=== PATIENT | female | born 1955 | race Caucasian/White ===

== ENCOUNTER → 2016-03-21 | Outpatient (CLI) | payer OTHER ==
[~2016-03-21] MED LIST: ALBUAER19 INH; CYM/30 PO; LOSA1TAB38 PO; METO1TAB31 PO; PANT1TAB48 PO; RANI1TAB77 PO
[2016-03-21 13:50] LABS: BLOOD UREA NITROGEN 18 mg/dl (7-18); BUN/CREATININE RATIO 19.9 (10-20); CALCIUM 9.1 mg/dl (8.5-10.1); CARBON DIOXIDE 31 mmol/L (21-32); CHLORIDE 100 mmol/L (98-107); CREATININE 0.92 mg/dl (0.60-1.20); GLUCOSE 164 mg/dl (70-99); SODIUM 140 mmol/L (136-145)
[2016-03-21 13:58] LABS: ESTIMATED AVERAGE GLUCOSE 114 mg/dl; HA1C FLAG Normal (Normal)
== END | disposition home or self-care (01) ==
LOC: C.LAB 11:40
PROVIDERS: ATTEND Internal Medicine
DX: R20.2 Paresthesia of skin (principal); W19.XXXA Unspecified fall, initial encounter; R73.9 Hyperglycemia, unspecified

== ENCOUNTER → 2016-03-22 | Outpatient (CLI) | payer OTHER | END | disposition home or self-care (01) | LOC: C.LAB1850 14:50 | PROVIDERS: ATTEND Internal Medicine | DX: R14.0 Abdominal distension (gaseous) (principal) ==

== ENCOUNTER → 2016-03-26 | Outpatient (CLI) | payer OTHER ==
--- NOTE | 2016-03-26 11:50 | DIAGNOSTIC IMAGING REPORT ---
ABDOMEN COMPLETE (US) CLINICAL HISTORY: R14.0 Bloated [id number] COMPARISON STUDY: No previous studies for comparison. FINDINGS: The pancreas appears sonographically normal. The liver is of slightly increased echogenicity. This slightly heterogeneous in echotexture. Hepatic steatosis is suspected. Hepatitis could appear similar. The gallbladder appears sonographically normal. There is no ductal dilatation. The common buttock measures 4 mm. There is mild splenomegaly (13.1 cm) The right kidney measures 10.5 cm in length. The left kidney measures 11.9 cm in length. There is no hydronephrosis. There is a 23 mm echogenic right renal mass. This is consistent with the patient's known right renal angiomyolipoma No abnormality IVC or aorta are visualized. IMPRESSION: 1. 23 mm echogenic right renal mass, likely representing a right renal angiomyolipoma 2. Increased hepatic echogenicity, likely secondary to hepatic steatosis 3. Ultrasonographically normal gallbladder. No ductal dilatation 4. Mild splenomegaly Electronically signed by: Nelson Mustafa M.D. 03/26/2016 11:48 AM Dictated Date/Time: 03/26/2016 11:45 AM
== END | disposition home or self-care (01) ==
LOC: C.ULTR 11:02
PROVIDERS: ATTEND Internal Medicine
DX: R14.0 Abdominal distension (gaseous) (principal); N28.89 Other specified disorders of kidney and ureter; K76.9 Liver disease, unspecified

== ENCOUNTER → 2016-04-24 | Outpatient (CLI) | payer OTHER ==
--- NOTE | 2016-04-24 17:54 | DIAGNOSTIC IMAGING REPORT ---
LEFT SHOULDER MIN 2 VIEWS ROUTINE CLINICAL HISTORY: Left shoulder pain COMPARISON: Chest x-ray dated 03/12/2016 DISCUSSION: No fractures or dislocations are visualized. There are no visible periarticular calcifications. There is stable left hilar prominence. There is mild left lung interstitial thickening. IMPRESSION: No fractures, dislocations, or periarticular calcifications are visualized Electronically signed by: Nelson Mustafa M.D. 04/24/2016 5:53 PM Dictated Date/Time: 04/24/2016 5:52 PM
== END | disposition home or self-care (01) ==
LOC: C.RAD 17:05
PROVIDERS: ATTEND Internal Medicine
DX: M25.512 Pain in left shoulder (principal)

== ENCOUNTER → 2016-08-26 | Outpatient (CLI) | payer OTHER ==
[~2016-08-26] MED LIST changes: +METO-478 PO; -METO1TAB31 PO
--- NOTE | 2016-08-26 14:39 | DIAGNOSTIC IMAGING REPORT ---
KUB CLINICAL HISTORY: N20.0 Nephrolithiasis COMPARISON STUDY: 07/28/2015 FINDINGS: There is no pathologic bowel dilatation. There are no calcifications suspicious for renal calculi. Pelvic basin calcifications, likely represent phleboliths. IMPRESSION: 1. No urinary tract calculi identified on conventional radiographic imaging Electronically signed by: Nelson Mustafa M.D. 08/26/2016 2:37 PM Dictated Date/Time: 08/26/2016 2:37 PM
== END | disposition home or self-care (01) ==
LOC: C.RAD 14:19
PROVIDERS: ATTEND Urology
DX: N20.0 Calculus of kidney (principal)

== ENCOUNTER → 2016-09-18 | Outpatient (CLI) | payer OTHER ==
[~2016-09-18] MED LIST changes: -METO-478 PO; +METO1TAB31 PO
--- NOTE | 2016-09-18 08:25 | DIAGNOSTIC IMAGING REPORT ---
CT SCAN OF THE ABDOMEN AND PELVIS WITHOUT CONTRAST CLINICAL HISTORY: NEPHROLITHIASIS, RIGHT KIDNEY MASS COMPARISON STUDY: 08/26/2014 , abdominal ultrasound dated 03/26/2016 TECHNIQUE: CT scan of the abdomen and pelvis was performed from the lung bases to the proximal femurs. Images are reviewed in the axial, sagittal, and coronal planes. IV contrast was not administered for this examination. CT DOSE: 1120.42 mGy.cm FINDINGS: Lower chest: There are coronary artery calcifications present. There are by basilar opacities, likely representing areas of atelectasis/scarring. Liver: The unenhanced liver is normal in size, contour, and attenuation. There is no intrahepatic biliary ductal dilatation. Gallbladder: Unremarkable. Spleen: Normal in size and attenuation. Pancreas: Unremarkable. Adrenal glands: Unremarkable. Kidneys: There are multiple bilateral renal calculi. The largest is located on the left measuring 3 mm. No ureteral calculi are visualized. No bladder calculi are visualized. There is no significant hydronephrosis. There is a stable fat-containing right renal mass measuring approximately 2 cm. This may represent an angiomyolipoma. Bowel: There are no transition zones indicate bowel obstruction. The appendix appears normal. There is colonic diverticulosis. There are no acute peridiverticular inflammatory changes. Peritoneum: There is no intraperitoneal free air or abdominal ascites. Vasculature: The abdominal aorta is normal in course and caliber. Adenopathy: There are mildly enlarged iliac chain lymph nodes, unchanged the preceding study. The largest is a 25 x 13 mm right-sided node. Pelvic viscera: The uterus appears surgically absent Skeletal structures: No destructive osseous lesions are seen. IMPRESSION: 1. No evidence of bowel obstruction. No evidence of free air 2. Bilateral nephrolithiasis 3. Stable 2 cm fat-containing right renal mass 4. No ureteral or bladder calculi identified 5. Mildly enlarged iliac chain lymph nodes, similar to the preceding 2014 examination Electronically signed by: Nelson Mustafa M.D. 09/18/2016 8:23 AM Dictated Date/Time: 09/18/2016 8:15 AM
== END | disposition home or self-care (01) ==
LOC: C.CTS 07:59
PROVIDERS: ATTEND Urology
DX: N20.0 Calculus of kidney (principal); N28.89 Other specified disorders of kidney and ureter

== ENCOUNTER → 2016-09-23 | Outpatient (CLI) | payer OTHER | END | disposition home or self-care (01) | LOC: C.LABSPEC 10:45 | PROVIDERS: ATTEND Nurse Practitioner Adult Health | DX: N39.46 Mixed incontinence (principal) ==

== ENCOUNTER → 2017-01-06 | Outpatient (CLI) | payer OTHER ==
[~2017-01-06] MED LIST changes: +METO-478 PO; -METO1TAB31 PO
[2017-01-06 12:18] LABS: ESTIMATED AVERAGE GLUCOSE 117 mg/dl; HA1C FLAG Normal (Normal)
[2017-01-06 14:07] LABS: BLOOD UREA NITROGEN 14 mg/dl (7-18); BUN/CREATININE RATIO 18.8 (10-20); CARBON DIOXIDE 29 mmol/L (21-32); CHLORIDE 103 mmol/L (98-107); CREATININE 0.75 mg/dl (0.60-1.20); GLUCOSE 99 mg/dl (70-99); POTASSIUM 4.1 mmol/L (3.5-5.1); SODIUM 138 mmol/L (136-145)
== END | disposition home or self-care (01) ==
LOC: C.LAB1850 11:18
PROVIDERS: ATTEND Internal Medicine
DX: R73.9 Hyperglycemia, unspecified (principal); E55.9 Vitamin D deficiency, unspecified; F41.9 Anxiety disorder, unspecified

== ENCOUNTER → 2017-07-07 | Outpatient (CLI) | payer OTHER ==
[~2017-07-07] MED LIST changes: +PANT1TAB3 PO; -PANT1TAB48 PO
[2017-07-07 12:24] LABS: BASO % 0.9 %; BASO ABS # 0.05 K/uL (0-0.2); EOS % 2.9 %; EOS ABS # 0.16 K/uL (0-0.5); HEMATOCRIT 46.9 % (37-47); HEMOGLOBIN 15.8 g/dL (12.0-16.0); IG# 0.01 K/uL (0.00-0.02); LYMPH % 23.6 %; MEAN CELL VOLUME 87.5 fL (80-100); MEAN CORPUSCULAR HEMOGLOBIN 29.5 pg (25-34); MEAN CORPUSCULAR HGB CONC 33.7 g/dl (32-36); MEAN PLATELET VOLUME 10.1 fL (7.4-10.4); MONO % 9.8 %; MONO ABS # 0.54 K/uL (0.11-0.59); NEUT % 62.6 %; NEUT ABS # 3.44 K/uL (1.4-6.5); PLATELET COUNT 216 K/uL (130-400); RED CELL DISTRIBUTION WIDTH CV 13.8 % (11.5-14.5); RED CELL DISTRIBUTION WIDTH SD 43.9 fL (36.4-46.3)
[2017-07-07 12:40] LABS: HEMOGLOBIN A1C 5.8 % (4.5-5.6)
[2017-07-07 12:44] LABS: ALBUMIN 3.7 gm/dl (3.4-5.0); ALT/SGPT 26 U/L (12-78); AST/SGOT 15 U/L (15-37); BLOOD UREA NITROGEN 17 mg/dl (7-18); CALCIUM 9.2 mg/dl (8.5-10.1); CARBON DIOXIDE 31 mmol/L (21-32); CREATININE 0.87 mg/dl (0.60-1.20); GLUCOSE 102 mg/dl (70-99); POTASSIUM 4.6 mmol/L (3.5-5.1); SODIUM 139 mmol/L (136-145)
[2017-07-07 12:55] LABS: ALKALINE PHOSPHATASE 93 U/L (45-117); CHOLESTEROL 159 mg/dl (0-200); LDL CHOLESTEROL CALCULATED 101 mg/dl; TOTAL PROTEIN 7.6 gm/dl (6.4-8.2)
== END | disposition home or self-care (01) ==
LOC: C.LAB1850 10:52
PROVIDERS: ATTEND Internal Medicine
DX: R73.9 Hyperglycemia, unspecified (principal); F32.9 Major depressive disorder, single episode, unspecified; E55.9 Vitamin D deficiency, unspecified; R73.03 Prediabetes

== ENCOUNTER 2019-01-04 15:04 | Inpatient (IN) ==
[2019-01-04 16:36] LABS: Appearance Urine Cloudy (Clear); Bacteria Urine Automated 1+ (Negative); Blood Urine Negative (Negative); Color Urine Dark Yellow; Epithelial Cell Urine Auto >30 /lpf (0-5); Glucose Urine UA Negative (Negative); Ketones Urine Trace (Negative); Leukocyte Esterase Urine 1+ (Negative); Nitrite Urine Negative (Negative); Protein Urine Trace (Negative); Specific Gravity Urine 1.024 (1.000-1.030); Urobilinogen Urine Negative (Negative); pH Urine 5.5 (4.5-7.5)
[2019-01-04 16:43] LABS: Bilirubin Urine Negative (Negative); Ictotest Urine Negative (Negative)
[2019-01-04 17:04] LABS: Basophils # (auto) 0.08 K/uL (0-0.2); Basophils % (auto) 0.7 %; Eosinophils # (auto) 0.18 K/uL (0-0.5); Eosinophils % (auto) 1.6 %; Hematocrit (blood only) 47.5 % (37-47); Hemoglobin 16.4 g/dL (12.0-16.0); Immature Granulocytes # (auto) 0.01 K/uL (0.00-0.02); Immature Granulocytes % (auto) 0.1 %; Lymphocytes # (auto) 3.51 K/uL (1.2-3.4); Lymphocytes % (auto) 32.2 %; Mean Corpuscular Hemoglobin 29.9 pg (25-34); Mean Corpuscular Hgb Conc 34.5 g/dL (32-36); Mean Corpuscular Volume 86.7 fL (80-100); Mean Platelet Volume 9.9 fL (7.4-10.4); Monocytes % (auto) 9.2 %; Neutrophils # (auto) 6.13 K/uL (1.4-6.5); Neutrophils % (auto) 56.2 %; Platelet Count 212 K/uL (130-400); RDW Coefficient of Variation 13.2 % (11.5-14.5); RDW Standard Deviation 42.4 fL (36.4-46.3); Red Blood Count 5.48 M/uL (4.2-5.4); White Blood Count 10.91 K/uL (4.8-10.8)
[2019-01-04 17:17] LABS: Albumin Level 4.1 gm/dl (3.4-5.0); BUN Creatinine Ratio 20.7 (10-20); Calcium 9.6 mg/dl (8.5-10.1); Creatinine Clr Calc Pharmacy 68.3 ml/min; Est GFR (African American) 70.2; Est GFR (Non-African American) 60.5; Potassium 3.7 mmol/L (3.5-5.1)
[2019-01-04 17:22] LABS: Amphetamines+Metham, Urine Neg (Neg); Barbiturates, Urine Neg (Neg); Benzodiazepine, Urine Neg (Neg); Cocaine, Urine Neg (Neg); MDMA (Ecstacy), Urine Neg (Neg); Methadone, Urine Neg (Neg); Opiate, Urine Neg (Neg); Phencyclidine, Urine Neg (Neg)
[2019-01-04 17:28] LABS: Albumin Globulin Ratio 1.2 (0.9-2); Bilirubin,Total 0.9 mg/dl (0.2-1); Globulin 3.5 gm/dl (2.5-4.0); Thyroid Stimulating Hormone 1.86 uIu/ml (0.300-4.500); Total Protein 7.6 gm/dl (6.4-8.2)
[2019-01-04 17:31] LABS: Acetaminophen < 2 ug/ml (10-30); Salicylate < 1.7 mg/dl (2.8-20)
--- NOTE | 2019-01-04 19:47 | Emergency Department Note ---
Entered by Barbara Moreno acting as a scribe for History of Present Illness General Chief complaint: Mental Health Evaluation Stated complaint: MENTAL HEALTH EVAL History of Present Illness Provider complaint: mental health evaluation Onset (ago): week(s) 2 Location: head Pain Consistency: + other (episode) Associated symptoms: + weakness and + other (cannot sleep, body aches, anxious, nauseas, suicidal ideation with a plan to overdose or run her car into a tree, went off medication 3 months ago and became manic but then crashed shortly after) Treatments prior to arrival: none The patient is a 63 year old female who presents to the ED for a mental health evaluation. The patient states that she cannot sleep because she is anxious, has body aches, weakness and nausea. The patient states that she has suicidal ideations with a plan to either overdose or drive her car into a tree. The patient notes that this episode started 2 weeks ago. The patient notes that she went off her medication 3 months ago and initially felt great because she was manic. The patient states that she started to "crash" shortly after this and has not felt herself since. The patient denies receiving any treatments prior to arrival. Home Medications Home Medications Medication Instructions Recorded Confirmed Type vitamin B complex tablet 1 tab PO QAM tab 10/27/18 01/04/19 History hydroxyzine HCl 10 mg tablet 10 - 20 mg PO HS PRN 10 Days #20 01/01/19 01/04/19 Rx tab losartan [Cozaar] 100 mg PO QAM 01/04/19 01/04/19 History duloxetine [Cymbalta] 30 mg PO DAILY 01/05/19 01/05/19 History Allergies Allergy/AdvReac Type Severity Reaction Status Date / Time Thiazides Allergy Severe SOB, Verified 01/04/19 15:59 hives, rash omeprazole Allergy Intermediate joints hurt Verified 01/04/19 15:59 prednisone Allergy Intermediate FACIAL Verified 01/04/19 15:59 NUMBNESS AND DIZZINESS trazodone AdvReac Severe suicidial Verified 01/04/19 15:59 idealations Past Med/Surg History Medical History Abdominal pain (Acute) Nausea (Acute) Kidney mass (Acute) Angiomyolipoma of right kidney Anxiety (Acute) Arthralgia (Acute) Calcium nephrolithiasis (Acute) Cirrhosis, nonalcoholic (Acute) Depression (Acute) Diverticulosis (Acute) Fatty liver (Acute) Fibromyalgia (Acute) Gastroesophageal reflux disease without esophagitis (Acute) Hypertension (Acute) IPMN (intraductal papillary mucinous neoplasm) (Acute) Insomnia (Acute) Internal hemorrhoids (Acute) Irritable bowel syndrome (Acute) Macular edema of left eye (Acute) Metabolic syndrome (Acute) Prediabetes (Acute) Sarcoidosis of lung (Acute) Tingling (Acute) Vitamin D deficiency (Acute) Kidney stone (Resolved) H/O tooth extraction H/O: hysterectomy Surgical History Hx of cystoscopy With Ureteroscopy With Manipulation Of Calculus Family History Mother Coronary heart disease Skin cancer Diabetes Hypertension History of nephrolithiasis Acute myocardial infarction Colon cancer Myocardial infarction Unknown Heart disease Diabetes Hypertension History of nephrolithiasis Sister Diabetes Father Hypertension Acute myocardial infarction Myocardial infarction Unknown Hypertension Brother Hypertension Malignant neoplasm of kidney Aunt Colon cancer Social History Preferred Language: German Communication Ability: Effective Visual Impairment: No Limitations Hearing Ability: Normal Senior 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 and A total of 10 systems reviewed and were otherwise negative Physical Exam Vital Signs Vital Signs - 24 hr 01/04/19 15:15 01/04/19 17:23 01/04/19 20:43 Temperature 37.0 C Temperature Source Oral Sepsis Recent Fever Within 48 Hours No Sepsis New/Unexplained Change in Mental Status No Sepsis Action Taken by Nursing No Action Required Pulse Rate 123 H Pulse Rate [Right Finger] 102 H 93 H Pulse Rhythm Regular Pulse Strength Normal Respiratory Rate 18 20 20 Blood Pressure 172/108 H Blood Pressure [Left Arm] 158/105 H 182/112 H Blood Pressure Mean 129 Blood Pressure Mean [Left Arm] 122 135 Blood Pressure Position Sitting Pulse Oximetry 95 96 95 Oxygen Delivery Method Room Air Room Air 01/04/19 21:16 Temperature Temperature Source Sepsis Recent Fever Within 48 Hours Sepsis New/Unexplained Change in Mental Status Sepsis Action Taken by Nursing Pulse Rate Pulse Rate [Right Finger] 92 H Pulse Rhythm Pulse Strength Respiratory Rate 20 Blood Pressure Blood Pressure [Left Arm] 134/76 Blood Pressure Mean Blood Pressure Mean [Left Arm] 95 Blood Pressure Position Pulse Oximetry 99 Oxygen Delivery Method Room Air Vital signs reviewed. General: Well-appearing 63 year old female, obese, in no significant distress. HEENT: No scleral icterus, PERRLA, neck supple. Atraumatic. Cardiovascular: Regular rate and rhythm, no extra sounds. Pulmonary: Clear to auscultation bilaterally, normal work of breathing. Abdomen: Soft, nontender, nondistended, positive bowel sounds. Musculoskeletal: Atraumatic, no peripheral edema. Neurologic: Patient awake alert and oriented x 3 Psych: Positive SI with plan, negative HI. Skin: Warm, dry, no rash Course 1629: Past medical records reviewed. The patient was evaluated in room C08. A complete history and physical exam was performed. 2228: The patient will be accepted to [address] [place] [address]. Administered Medications Clonidine HCl (Catapres) 0.05 mg PO Q4H PRN PRN Reason: hypertension/anxiety Stop: 02/04/19 12:57 Last Admin: 01/06/19 14:03 Dose: 0.05 mg Documented by: [id number] Duloxetine HCl (Cymbalta) 20 mg PO [facility] Stop: 02/04/19 11:59 Last Admin: 01/06/19 09:03 Dose: 20 mg Documented by: [id number] Admin: 01/05/19 13:52 Dose: 20 mg Documented by: [id number] Hydroxyzine HCl (Vistaril) 50 mg PO HSZ PRN PRN Reason: Insomnia Stop: 02/03/19 22:42 Last Admin: 01/06/19 01:31 Dose: 50 mg Documented by: [id number] Losartan Potassium [facility]Cozaar) [facility] Stop: 02/05/19 08:59 Last Admin: 01/06/19 09:03 Dose: 100 mg Documented by: [id number] Discontinued Medications Clonidine HCl (Catapres) 0.1 mg PO Q4H PRN PRN Reason: hypertension/anxiety Stop: 02/04/19 12:57 Last Admin: 01/05/19 13:52 Dose: 0.1 mg Documented by: [id number] Losartan Potassium (Cozaar) 100 mg PO QAM [facility] Stop: 02/04/19 08:59 Last Admin: 01/05/19 09:03 Dose: 100 mg Documented by: [id number] Medical Decision Making Differential Diagnosis Differential diagnosis: Etiologies such as psychiatric disorder, infection, hypoglycemia, electrolyte abnormalities, cardiac sources, intracerebral event, toxicological process, neurologic disorder, as well as others were entertained. Medical Records Attestation: I reviewed the patient's medical records. Home Medications Current Medication List: was personally reviewed by me Laboratory Data Attestation: I reviewed the patient's lab results. Result diagrams: 01/04/19 16:41 01/04/19 16:41 Lab Results 01/04/19 01/04/19 01/04/19 Range/Units 15:45 15:45 16:41 WBC 10.91 H (4.8-10.8) K/uL RBC 5.48 H (4.2-5.4) M/uL Hgb 16.4 H (12.0-16.0) g/dL Hct 47.5 H (37-47) % MCV 86.7 (80-100) fL MCH 29.9 (25-34) pg MCHC 34.5 (32-36) g/dL RDW Std Deviation 42.4 (36.4-46.3) fL RDW Coeff of Ne 13.2 (11.5-14.5) % Plt Count 212 (130-400) K/uL MPV 9.9 (7.4-10.4) fL Immature Gran % (Auto) 0.1 % Neut % (Auto) 56.2 % Lymph % (Auto) 32.2 % [place] % (Auto) 9.2 % Eos % (Auto) 1.6 % Baso % (Auto) 0.7 % Immature Gran # (Auto) 0.01 (0.00-0.02) K/uL Neut # (Auto) 6.13 (1.4-6.5) K/uL Lymph # (Auto) 3.51 H (1.2-3.4) K/uL [place] # (Auto) 1.00 H (0.11-0.59) K/uL Eos # (Auto) 0.18 (0-0.5) K/uL Baso # (Auto) 0.08 (0-0.2) K/uL Sodium (136-145) mmol/L Potassium (3.5-5.1) mmol/L Chloride (98-107) mmol/L Carbon Dioxide (21-32) mmol/L Anion Gap (3-11) BUN (7-18) mg/dl Creatinine (0.6-1.2) mg/dl Est Cr Clr Drug Dosing ml/min Est GFR ( Amer) Est GFR (Non-Af Amer) BUN/Creatinine Ratio (10-20) Glucose (70-99) mg/dl Calcium (8.5-10.1) mg/dl Total Bilirubin (0.2-1) mg/dl AST (15-37) U/L ALT (12-78) U/L Alkaline Phosphatase (45-117) U/L Total Protein (6.4-8.2) gm/dl Albumin (3.4-5.0) gm/dl Globulin (2.5-4.0) gm/dl Albumin/Globulin Ratio (0.9-2) TSH (0.300-4.500) uIu/ml Urine Color Dark Yellow Urine Appearance Cloudy A (Clear) Urine pH 5.5 (4.5-7.5) Ur Specific [place] 1.024 (1.000-1.030) Urine Protein Trace H (Negative) Urine Glucose (UA) Negative (Negative) Urine Ketones Trace H (Negative) Urine Blood Negative (Negative) Urine Nitrite Negative (Negative) Urine Bilirubin Negative (Negative) Urine Urobilinogen Negative (Negative) Ur Leukocyte Esterase 1+ H (Negative) Urine WBC (Auto) 5-10 H (0-5) /hpf Urine RBC (Auto) 5-10 H (0-4) /hpf U Hyaline Cast (Auto) 5-10 H (0-5) /lpf U Epithel Cells (Auto) >30 H (0-5) /lpf Urine Bacteria (Auto) 1+ H (Negative) Salicylates (2.8-20) mg/dl Urine Opiates Screen Neg (Neg) Ur Methadone, Qual Neg (Neg) Acetaminophen (10-30) ug/ml Urine Barbiturates Neg (Neg) Ur Phencyclidine (PCP) Neg (Neg) U Amphetamin/Meth Scrn Neg (Neg) MDMA (Ecstasy) Screen Neg (Neg) U Benzodiazepines Scrn Neg (Neg) Ur Cocaine Metabolite Neg (Neg) U Marijuana (THC) Screen Neg (Neg) Ethyl Alcohol mg/dL (0-3) mg/dl 01/04/19 01/04/19 01/04/19 Range/Units 16:41 16:41 16:41 WBC (4.8-10.8) K/uL RBC (4.2-5.4) M/uL Hgb (12.0-16.0) g/dL Hct (37-47) % MCV (80-100) fL MCH (25-34) pg MCHC (32-36) g/dL RDW Std Deviation (36.4-46.3) fL RDW Coeff of Ne (11.5-14.5) % Plt Count (130-400) K/uL MPV (7.4-10.4) fL Immature Gran % (Auto) % Neut % (Auto) % Lymph % (Auto) % [place] % (Auto) % Eos % (Auto) % Baso % (Auto) % Immature Gran # (Auto) (0.00-0.02) K/uL Neut # (Auto) (1.4-6.5) K/uL Lymph # (Auto) (1.2-3.4) K/uL [place] # (Auto) (0.11-0.59) K/uL Eos # (Auto) (0-0.5) K/uL Baso # (Auto) (0-0.2) K/uL Sodium 136 (136-145) mmol/L Potassium 3.7 (3.5-5.1) mmol/L Chloride 102 (98-107) mmol/L Carbon Dioxide 29 (21-32) mmol/L Anion Gap 5.0 (3-11) BUN 20 H (7-18) mg/dl Creatinine 0.98 (0.6-1.2) mg/dl Est Cr Clr Drug Dosing 68.3 ml/min Est GFR ( Amer) 70.2 Est GFR (Non-Af Amer) 60.5 BUN/Creatinine Ratio 20.7 H (10-20) Glucose 109 H (70-99) mg/dl Calcium 9.6 (8.5-10.1) mg/dl Total Bilirubin 0.9 (0.2-1) mg/dl AST 19 (15-37) U/L ALT 23 (12-78) U/L Alkaline Phosphatase 77 (45-117) U/L Total Protein 7.6 (6.4-8.2) gm/dl Albumin 4.1 (3.4-5.0) gm/dl Globulin 3.5 (2.5-4.0) gm/dl Albumin/Globulin Ratio 1.2 (0.9-2) TSH 1.860 (0.300-4.500) uIu/ml Urine Color Urine Appearance (Clear) Urine pH (4.5-7.5) Ur Specific [place] (1.000-1.030) Urine Protein (Negative) Urine Glucose (UA) (Negative) Urine Ketones (Negative) Urine Blood (Negative) Urine Nitrite (Negative) Urine Bilirubin (Negative) Urine Urobilinogen (Negative) Ur Leukocyte Esterase (Negative) Urine WBC (Auto) (0-5) /hpf Urine RBC (Auto) (0-4) /hpf U Hyaline Cast (Auto) (0-5) /lpf U Epithel Cells (Auto) (0-5) /lpf Urine Bacteria (Auto) (Negative) Salicylates < 1.7 L (2.8-20) mg/dl Urine Opiates Screen (Neg) Ur Methadone, Qual (Neg) Acetaminophen < 2 L (10-30) ug/ml Urine Barbiturates (Neg) Ur Phencyclidine (PCP) (Neg) U Amphetamin/Meth Scrn (Neg) MDMA (Ecstasy) Screen (Neg) U Benzodiazepines Scrn (Neg) Ur Cocaine Metabolite (Neg) U Marijuana (THC) Screen (Neg) Ethyl Alcohol mg/dL < 3.0 (0-3) mg/dl Blood Pressure Blood Pressure Findings: Elevated blood pressure Blood Pressure Disposition: further management by hospitalist MDM Narrative This pt was evaluated and appeared to be in no distress. Pt was medically cleared and evaluated by the mental health bilingual case manager. Pt was voluntary for admission and accepted by [facility] for further management. Impression & Plan Suicidal ideation Discharge Plan Visit Data *Final* Discharge Date/Time: 01/04/19 21:46 Chief Complaint: Mental Health Evaluation Stated Complaint: MENTAL HEALTH EVAL ED Provider: Marcella Oates Discharge Problem: Suicidal ideation Patient Disposition: Admitted As Inpatient Discharge Instructions Interventions: ED Discharge Assessment Last Done: 01/04/19 21:46 The scribe's documentation has been prepared under my direction and personally reviewed by me in its entirety. I confirm that the note above accurately reflects all work, treatment, procedures, and medical decision making performed by me.
[2019-01-04] MEDS ORDERED: MAGNESIUM HYDROXIDE SUSP 30 ML UDC PO PRN (22:43)
[2019-01-04] MEDS ORDERED: SODIUM CHLORIDE 0.65% NA SOLN 45 ML (OCEAN) PRN (22:43)
[2019-01-04] MEDS ORDERED: BISMUTH SUBSALICYLATE PER ML OMNICELL CHARGE PO PRN (22:43)
[2019-01-04] MEDS ORDERED: ALUMINUM/MAGNESIUM SUSP 30 ML UDC PO PRN (22:43)
[2019-01-05] MEDS ORDERED: LOSARTAN POTASSIUM 50 MG TAB PO SCH (09:00)
--- NOTE | 2019-01-05 11:50 | History & Physical ---
Date of Service January 05, 2019 Impression / Recommendations Impression 63-year-old single female with a history of bipolar 2, generalized anxiety disorder, and multiple medical problems who presents with worsening mood and suicidal ideation in the context of noncompliance with mental health treatment, including medications and therapy, as well as worsening medical conditions and increased social isolation. She did well and was stable on low-dose duloxetine for years, and agrees to resume it while monitoring closely for impact to liver and mood destabilization. She has never taken a mood stabilizer, but has had manic symptoms with an SSRI in the past, so close monitoring is indicated. She would also benefit from getting back into therapy, working on coping strategies for dealing with her multiple health issues, which she reports are overwhelming. Inpatient treatment is medically necessary due to the risk of suicide if discharged. (1) Suicidal ideation: Q 15 min checks for safety Work on healthy coping skills and discharge safety plan. Present on Admission?: Yes (2) Bipolar II disorder: 01/05 - Reviewed OP records from [facility], diagnosed bipolar II and h/o manic symptoms on citalopram, but did the best on duloxetine 30mg daily (stable for years, and helped chronic pain). Reviewed risks, benefits and side effects and patient agreed to resume. Also discussed lurasidone (states she can't afford it), as well as lamotrigine. - Consider addition of mood stabilizer (lamotrigine?) - Collateral information from friends/supports, family meeting if indicated. - Refer for OP treatment. - Encourage group attendance and participation. Present on Admission?: Yes (3) Anxiety: TAL - resume SNRI, engage in therapy, work on healthy coping skills. Present on Admission?: Yes (4) Hypertension: 01/05 - Poorly controlled, resume home dose of Cozaar and monitor. Will need f/u with PCP Present on Admission?: Yes (5) Sleep apnea: 01/05 -patient reports diagnosis of obstructive sleep apnea and is prescribed CPAP, but has been noncompliant with it for years. Sleep is chronically poor and this is likely contributing to depression. She is aware that she needs to resume, and reports having an appointment with a sleep physician at [facility] next month. Present on Admission?: Yes (6) Kidney mass: Follow-up with urologist as recommended Present on Admission?: Yes Risk Factors Assessment Male: No : Yes Do You Have Access To A Gun?: No Health Problems: Yes Mental Health Diagnoses: Yes Substance Use Disorders: No Previous Attempt: Yes Family History of Suicide: No Previous Psychiatric Hospitalization: No Hopelessness: Yes Smoker: No Protective Factors Assessment Christianity Beliefs: Yes : No Responsible for Young Children: No Employed: No Stable Relationships: Yes Supportive Family: No Good Rapport with Provider: No Psychiatric History Identifying Data HAILEY MATHIS is a 63-year-old F who currently lives alone in [place], has a history of depression, and was admitted on 01/04/19 21:31 on a 201 voluntary commitment for worsening depression and suicidal ideation. Chief Complaint "Anxiety, afraid, scared". History of Present Illness Patient drove herself to the ER along with a baptist friend reporting SI with thoughts to drive herself into a tree. She had picked out the tree she would use. She had recently been seen in the ER for abdominal pain, and was told to follow up with her urologist. On my assessment she reports she went off medication and stopped going to therapy earlier this year after her outpatient TOOTH CUTTER SPUR left the practice, and her therapist also left and she didn't like the new therapist. She reports feeling overwhelmed with her medical problems, stating every time she went to see her doctor "it was something else, another vital organ." States she was diagnosed with cirrhosis and decided to stop her Cymbalta several months ago after she saw that it could cause liver damage. Since then her mood has worsened, states "I thought it didn't, but everyone else said it did. I knew my mood wasn't where it should be." Sleep has worsened over the past week and a half, and appetite has been down with 30lb weight loss. 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 Reports she stopped going to outpatient psychiatric treatment after her previous TOOTH CUTTER SPUR retired, stating she didn't want to talk to someone else. She is fearful of taking any medications, worries about side effects and her liver. She reports taking her BP meds and states BP is usually well controlled, "but gets high when I'm not feeing well." She denies recollection of manic or hypomanic episodes, but is aware she has been diagnosed with bipolar II. She states she "tried to go back on the duloxetine, was on it for 5 days earlier this month (can't give timeline), and thinks it might have caused her to feel suicidal. She repeatedly answers "I don't know, I"m just tired. Everything seems to be out of control, and I don't know how to cope." She has not been sleeping well and thinks it is causing trouble thinking and functioning. Denies paranoia, AVH, OCD, and PTSD. Past Psychiatric History Previous Psych History: Previously saw Paulina CORONADO at [facility], last in 01/2018 (diagnoses as below). Also saw Sera Nicole for therapy [id number], and prior to that saw Vaishali Floyd Current Psychiatric Diagnosis: bipolar II, TAL, chronic pain syndrome Outpatient Services: None Do You Have Access To A Gun?: No History of Previous Suicide Attempt: Yes Describe Attempts in the Past: OD appx: 2008 or 2009 while tried on trazodone, not hospitalized Past Medication Trials: Include but not limited to: trazodone - SI increased citalopram duloxetine - was on 30mg alone for years, as declined mood stabilizer. Higher doses have triggered ramona Does not think she has ever been on lithium or lamotrigine Allergies Allergy/AdvReac Type Severity Reaction Status Date / Time Thiazides Allergy Severe SOB, Verified 01/04/19 15:59 hives, rash omeprazole Allergy Intermediate joints hurt Verified 01/04/19 15:59 prednisone Allergy Intermediate FACIAL Verified 01/04/19 15:59 NUMBNESS AND DIZZINESS trazodone AdvReac Severe suicidial Verified 01/04/19 15:59 idealations Home Medications Home Medications Medication Instructions Recorded Confirmed Type vitamin B complex tablet 1 tab PO QAM tab 10/27/18 01/04/19 History hydroxyzine HCl 10 mg tablet 10 - 20 mg PO HS PRN 10 Days #20 01/01/19 01/04/19 Rx tab losartan [Cozaar] 100 mg PO QAM 01/04/19 01/04/19 History Family History Family History of: Depression Family Mental Health History Comment: Father, Brother: Depression Alcohol History Hx of Alcohol Use Over the Past 12 Months: No AUDIT Total Score: 0 Smoking Use Have You Smoked or Used Tobacco Products in the Last 30 Days: No Smoking Status: Never smoker Substance History Hx of Prescription Med Misuse Over the Past 12 Months: No Hx of Over the Counter Med Misuse Over the Past 12 Months: No Hx of Inhalent Misuse Over the Past 12 Months: No Hx of Organic Substance Use Over the Past 12 Months: No Hx of Illegal Substances/Street Drug Use Over Past 12 Months: No Problems as a Result of Past Substance Use: None Identified Personal History Living Arrangements: Home Living Arrangements Comments: alone in [place] Highest Grade Completed: High School Graduate Employment Status: Disabled Marital Status: Single Number Of Children: 0 Beliefs That Will Affect Care: Christianity (Orthodoxy) Current Legal Problems: No Hx Traumatic Life Events: No Patient History Medical History Abdominal pain (Acute) Nausea (Acute) Kidney mass (Acute) Angiomyolipoma of right kidney Anxiety (Acute) Arthralgia (Acute) Calcium nephrolithiasis (Acute) Cirrhosis, nonalcoholic (Acute) Depression (Acute) Diverticulosis (Acute) Fatty liver (Acute) Fibromyalgia (Acute) Gastroesophageal reflux disease without esophagitis (Acute) Hypertension (Acute) IPMN (intraductal papillary mucinous neoplasm) (Acute) Insomnia (Acute) Internal hemorrhoids (Acute) Irritable bowel syndrome (Acute) Macular edema of left eye (Acute) Metabolic syndrome (Acute) Prediabetes (Acute) Sarcoidosis of lung (Acute) Tingling (Acute) Vitamin D deficiency (Acute) Kidney stone (Resolved) H/O tooth extraction H/O: hysterectomy Surgical History Hx of cystoscopy With Ureteroscopy With Manipulation Of Calculus Social History Preferred Language: Surinamese Communication Ability: Effective Visual Impairment: No Limitations Hearing Ability: Normal Mesh Man Required: No Beliefs That Will Affect Care: Christianity (Orthodoxy) Christianity Beliefs: Sabianist marital status: Single Current Living Situation: Alone current occupational status: unemployed Feels Safe at Home: Yes Smoking Status: Never smoker Hx Alcohol Use: No Hx Substance Use: No Childhood Exposure to Second-Hand Smoke: No Dental Care, Regularly: Yes Physical Activity Frequency: Does not Exercise Seatbelt Use: always Sunscreen Use: No Review of Systems Review of Systems: All systems reviewed & are unremarkable except as noted in HPI & below denies pain currently. Reports flatulence Physical Exam Psychiatric: Orientation: alert and cooperative Poor historian Apperance: appropriately dressed and appeared stated age Obese Eye Contact: + fair eye contact Motor Behavior: steady gait and station and no abnormal motor movements Exasperated tone Affect: + depressed affect, + irritable affect, + constricted affect and mood congruent with affect Mood: + depressed mood and + anxious mood Thought Process: goal directed thought process Thought Content: + cognitive distortions, + hopelessness, + worthlessness, + loneliness, + guilt and + self deprecation Vague, often states "I don't know." Suicidal Thoughts: + reports suicidal thoughts emerita to crash her car into a tree, has a tree picked out Homicidal Thoughts: denies homicidal thoughts Hallucinations: no auditory hallucinations and no visual hallucinations Cognition: language grossly intact; + recent memory not intact, + remote memory not intact and + attention not intact Estimated Intelligence: consistent with education level Insight: + limited insight Judgement: + poor judgement Vital Signs (Past 24 Hours): Last Vital Signs Temp 36.4 C L 01/05/19 06:00 Pulse 89 01/05/19 06:38 Resp 19 01/05/19 06:00 BP 160/101 H 01/05/19 06:38 Pulse Ox 99 01/04/19 21:16 Exam Statement: A physical exam was performed in the ER prior to admission to the unit by Dr. Marcella Cuevas. I accept that physical as correct/medical clearance for the inpatient physical exam. Results & Data Laboratory Results Laboratory Results - last 24 hr 01/04/19 01/04/19 01/04/19 15:45 15:45 16:41 WBC 10.91 H RBC 5.48 H Hgb 16.4 H Hct 47.5 H MCV 86.7 MCH 29.9 MCHC 34.5 RDW Std Deviation 42.4 RDW Coeff of Ne 13.2 Plt Count 212 MPV 9.9 Immature Gran % (Auto) 0.1 Neut % (Auto) 56.2 Lymph % (Auto) 32.2 [place] % (Auto) 9.2 Eos % (Auto) 1.6 Baso % (Auto) 0.7 Immature Gran # (Auto) 0.01 Neut # (Auto) 6.13 Lymph # (Auto) 3.51 H [place] # (Auto) 1.00 H Eos # (Auto) 0.18 Baso # (Auto) 0.08 Sodium Potassium Chloride Carbon Dioxide Anion Gap BUN Creatinine Est Cr Clr Drug Dosing Est GFR ( Amer) Est GFR (Non-Af Amer) BUN/Creatinine Ratio Glucose Calcium Total Bilirubin AST ALT Alkaline Phosphatase Total Protein Albumin Globulin Albumin/Globulin Ratio TSH Urine Color Dark Yellow Urine Appearance Cloudy A Urine pH 5.5 Ur Specific [place] 1.024 Urine Protein Trace H Urine Glucose (UA) Negative Urine Ketones Trace H Urine Blood Negative Urine Nitrite Negative Urine Bilirubin Negative Urine Urobilinogen Negative Ur Leukocyte Esterase 1+ H Urine WBC (Auto) 5-10 H Urine RBC (Auto) 5-10 H U Hyaline Cast (Auto) 5-10 H U Epithel Cells (Auto) >30 H Urine Bacteria (Auto) 1+ H Salicylates Urine Opiates Screen Neg Ur Methadone, Qual Neg Acetaminophen Urine Barbiturates Neg Ur Phencyclidine (PCP) Neg U Amphetamin/Meth Scrn Neg MDMA (Ecstasy) Screen Neg U Benzodiazepines Scrn Neg Ur Cocaine Metabolite Neg U Marijuana (THC) Screen Neg Ethyl Alcohol mg/dL 01/04/19 01/04/19 01/04/19 16:41 16:41 16:41 WBC RBC Hgb Hct MCV MCH MCHC RDW Std Deviation RDW Coeff of Ne Plt Count MPV Immature Gran % (Auto) Neut % (Auto) Lymph % (Auto) [place] % (Auto) Eos % (Auto) Baso % (Auto) Immature Gran # (Auto) Neut # (Auto) Lymph # (Auto) [place] # (Auto) Eos # (Auto) Baso # (Auto) Sodium 136 Potassium 3.7 Chloride 102 Carbon Dioxide 29 Anion Gap 5.0 BUN 20 H Creatinine 0.98 Est Cr Clr Drug Dosing 68.3 Est GFR ( Amer) 70.2 Est GFR (Non-Af Amer) 60.5 BUN/Creatinine Ratio 20.7 H Glucose 109 H Calcium 9.6 Total Bilirubin 0.9 AST 19 ALT 23 Alkaline Phosphatase 77 Total Protein 7.6 Albumin 4.1 Globulin 3.5 Albumin/Globulin Ratio 1.2 TSH 1.860 Urine Color Urine Appearance Urine pH Ur Specific [place] Urine Protein Urine Glucose (UA) Urine Ketones Urine Blood Urine Nitrite Urine Bilirubin Urine Urobilinogen Ur Leukocyte Esterase Urine WBC (Auto) Urine RBC (Auto) U Hyaline Cast (Auto) U Epithel Cells (Auto) Urine Bacteria (Auto) Salicylates < 1.7 L Urine Opiates Screen Ur Methadone, Qual Acetaminophen < 2 L Urine Barbiturates Ur Phencyclidine (PCP) U Amphetamin/Meth Scrn MDMA (Ecstasy) Screen U Benzodiazepines Scrn Ur Cocaine Metabolite U Marijuana (THC) Screen Ethyl Alcohol mg/dL < 3.0 Current Inpatient Medications Current Inpatient Medications: Current Inpatient Medications Acetaminophen (Tylenol) 650 mg PO Q4H PRN PRN Reason: Headache or Minor Fever Stop: 02/03/19 22:42 Al Hydrox/Mg Hydrox/Simethicone (Maalox) 30 ml PO Q4H PRN PRN Reason: GI Upset Stop: 02/03/19 22:42 Bismuth Subsalicylate (Kaopectate) 15 ml PO PRN PRN PRN Reason: Loose Stool Stop: 02/03/19 22:42 Hydroxyzine HCl (Vistaril) 50 mg PO HSZ PRN PRN Reason: Insomnia Stop: 02/03/19 22:42 Hydroxyzine HCl (Vistaril) 25 mg PO Q4H PRN PRN Reason: Anxiety Stop: 02/03/19 22:42 Losartan Potassium (Cozaar) 100 mg PO QAM LUPE Stop: 02/05/19 08:59 Magnesium Hydroxide (Milk Of Magnesia) 30 ml PO DAILY PRN PRN Reason: Constipation Stop: 02/03/19 22:42 Sodium Chloride (Scott Nasal) 1 - 2 sprays NA PRN PRN PRN Reason: Nasal Dryness/Congestion Stop: 02/03/19 22:42
[2019-01-05] MEDS ORDERED: cloNIDine HCl 0.1 MG TAB PO PRN (12:58)
[2019-01-05] MEDS: DULOXETINE HCL 20 MG CAP PO SCH (13:52)
--- NOTE | 2019-01-05 16:50 | Hospitalist Consultation ---
Date of Consultation January 05, 2019 Assessment & Plan (1) Suicidal ideation: As per psych team (2) Hypertension: Pt's BPs were much more elevated on admission in the 170s-180s and she has had readings that were WNL in the last 24 hours. Utox, CBC, PRP, TSH WNL on admisson BP did bump into the 150s-160 systolic today She was given a dose of clonidine which dropped BP to 110s and pt was lightheaded Recent outpt BPs have been fine over the last few months, including the most recent of 132/90 on 12/24 I think that pt's elevated BP is related to her anxiety and it is improving with tx of same Given she has had normal BP at times away from her medication dosing, it seems reasonable to monitor for now on home regimen Given pt's adverse reaction to clonidine, would advise refraining from this medication or consider giving 0.05mg dose if concern about BP >160 systolic Could work with pt on relaxation and breathing techniques for anxiety (3) Abdominal pain: HIDA 07/06 was WNL CTAP on 12/31 noted Advised pt that if she continues to have sx, to f/u with PCP or surgeon Advised that changing probiotic might help as well--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 Pt has had some elevated BP despite being on her home losartan dosing. Pt was given a dose of clonidine and feels lightheaded since that time. BP about an hour later was 110/82. Pt states she has been doing quite well on her current medication. Pt denies fever, chest pain, abd pain, n/v/c/d, LE pain or swelling. Lightheadedness was only today after clonidine dosing. Pt states she usually has mild SOB with exertion related to her sarcoidosis and this is at baseline. Pt states that her anxiety was very high on admission. She states that she has been working with this with the psych team and feels it is better, but still much higher than her usual anxiety. Pt states she has a lot of anxiety stemming from GI issues. She has concerns that testing done on her gallbladder "isn't accurate". She frequently has cramping and diarrhea s/p eating fatty or greasy foods. She has had issues with recent travel due to this and avoids travel now. She frequently has nausea and bloating after she eats, even if she does not have diarrhea. She states that she has two friends who were having similar issues who also had negative testing. Their sx continued and so they had their gallbladders taken out and sx have resolved. Pt states she is taking a 12 strain probiotic but has had no help with these sx. Pt has several outpt notes from recent visits. BP was 120s-130s systolic on all three visits spanning 10/30-12/24. Pt is unable to take beta blockers due to her sarcoidosis. She was put on some sort of thiazide but did not tolerate it due to SOB that returned to baseline with d/c. Pt states that duloxitine was stopped and she has lost 30lbs with a decrease in her FBS and A1c. She states she watches her diet and is trying to lose more weight. Allergies Allergy/AdvReac Type Severity Reaction Status Date / Time Thiazides Allergy Severe SOB, Verified 01/04/19 15:59 hives, rash omeprazole Allergy Intermediate joints hurt Verified 01/04/19 15:59 prednisone Allergy Intermediate FACIAL Verified 01/04/19 15:59 NUMBNESS AND DIZZINESS trazodone AdvReac Severe suicidial Verified 01/04/19 15:59 idealations Home Medications Home Medications Medication Instructions Recorded Confirmed Type vitamin B complex tablet 1 tab PO QAM tab 10/27/18 01/04/19 History hydroxyzine HCl 10 mg tablet 10 - 20 mg PO HS PRN 10 Days #20 01/01/19 01/04/19 Rx tab losartan [Cozaar] 100 mg PO QAM 01/04/19 01/04/19 History duloxetine [Cymbalta] 30 mg PO DAILY 01/05/19 01/05/19 History Patient History Medical History Abdominal pain (Acute) Nausea (Acute) Kidney mass (Acute) Angiomyolipoma of right kidney Anxiety (Acute) Arthralgia (Acute) Calcium nephrolithiasis (Acute) Cirrhosis, nonalcoholic (Acute) Depression (Acute) Diverticulosis (Acute) Fatty liver (Acute) Fibromyalgia (Acute) Gastroesophageal reflux disease without esophagitis (Acute) Hypertension (Acute) IPMN (intraductal papillary mucinous neoplasm) (Acute) Insomnia (Acute) Internal hemorrhoids (Acute) Irritable bowel syndrome (Acute) Macular edema of left eye (Acute) Metabolic syndrome (Acute) Prediabetes (Acute) Sarcoidosis of lung (Acute) Tingling (Acute) Vitamin D deficiency (Acute) Kidney stone (Resolved) H/O tooth extraction H/O: hysterectomy Surgical History Hx of cystoscopy With Ureteroscopy With Manipulation Of Calculus Family History Mother Coronary heart disease Skin cancer Diabetes Hypertension History of nephrolithiasis Acute myocardial infarction Colon cancer Myocardial infarction Unknown Heart disease Diabetes Hypertension History of nephrolithiasis Sister Diabetes Father Hypertension Acute myocardial infarction Myocardial infarction Unknown Hypertension Brother Hypertension Malignant neoplasm of kidney Aunt Colon cancer Social History Preferred Language: Algerian Communication Ability: Effective Visual Impairment: No Limitations Hearing Ability: Normal Billet Examiner Required: No Beliefs That Will Affect Care: Pentecostal (Islam) Pentecostal Beliefs: Sikh marital status: Single Current Living Situation: Alone current occupational status: unemployed Feels Safe at Home: Yes Smoking Status: Never smoker Hx Alcohol Use: No Hx Substance Use: No Childhood Exposure to Second-Hand Smoke: No Dental Care, Regularly: Yes Physical Activity Frequency: Does not Exercise Seatbelt Use: always Sunscreen Use: No Review of Systems Review of Systems: Pertinent positives and negatives reviewed in HPI--all others negative Physical Exam Constitutional: WD/WN, vitals as above Eyes: normal visual gallo by confrontation and + anicteric sclerae Neck: normal visual inspection and trachea midline Respiratory: normal respiratory effort, lungs clear to auscultation Cardiovascular: Rate/Rhythm: regular rate and regular rhythm Gastrointestinal (Abdomen): Inspection/Auscultation: abdomen not distended Percussion/Palpation: abdomen soft; abdomen nontender Musculoskeletal: Head/Neck/Chest: normocephalic and head atraumatic negative for edema, peripheral pulses intact Skin: no rashes, warm and dry Neurologic: awake; not confused Speech / Cognition: normal speech Psychiatric: A+Ox3, euthymic affect Results & Data Vital Signs (Past 12 Hours) Vital Signs Temp Pulse Pulse Resp BP BP 01/05/19 16:43 100 H 110/82 01/05/19 15:08 111 H 134/81 01/05/19 12:45 99 H 156/101 H 01/05/19 06:38 89 160/101 H 01/05/19 06:00 36.4 C L 85 19 154/101 H PG Care Time/CCT Total # of Minutes Spent Total Time Spent with Patient: Total time spent is greater than 50% in coordination of care (as documented) at patient's floor/unit and/or counseling patient: (1) Abdominal pain Abdominal location: upper abdomen, unspecified Qualified Code(s): R10.10 - Upper abdominal pain, unspecified
[2019-01-06] MEDS: DULOXETINE HCL 20 MG CAP PO SCH (09:03)
[2019-01-06] MEDS: LOSARTAN POTASSIUM 25 MG TAB PO SCH (09:03)
--- NOTE | 2019-01-06 11:19 | Hospitalist Progress Note ---
Date of Service January 06, 2019 Assessment & Plan (1) Suicidal ideation: * As per psych team (2) Hypertension: * Pt's BPs were much more elevated on admission in the 170s-180s and she has had readings that were WNL in the last 24 hours. * Utox, CBC, PRP, TSH WNL on admisson * BP did bump into the 150s-160 systolic yesterday (01/05) and patient was given dose of clonidine which dropped BP to 110s systolic and patient symptomatic with lightheadedness. * Outpatient BPs stable over past few months (most recent 132/90 on 12/24), and exprect elevated BP related to anxiety. Improved with tx of same. * BP 135/87 today * Continue home losartan 100mg * Continue to monitor (3) MICHELLE (obstructive sleep apnea): * Per patient, however she has not used her CPAP at home for some time- she states she has appt with Dr. Solomon within the next month to re-evaluate and possibly change her settings (she is unaware of what they were)- pt has mask and machine at home but no tubing at this time * May benefit from CPAP overnight for most restful sleep, as well as earlier appointment with Dr. Solomon if possible (4) Abdominal pain: * Improved * HIDA 07/06 was WNL * CTAP on 12/31 without bowel obstruction or acute process. Colonic diverticulosis without evidence for acute diverticulitis. 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 Cirrhosis with small varices and mild splenomegaly which favor portal hypertension. * Patient advise that if she continues to have sx, she should follow up with PCP/surgeon * Advised that changing probiotic might help as well--recs for [employer] EPS 5billion . (5) Prediabetes: * BS 109 * No current medications (6) Sarcoidosis of lung: * Per history- no current medications (7) Abnormal finding on urinalysis: * UA from admission + for leuk est, neg nitrites * Culture prelim- <1000 bacteria * As patient asymptomatic currently- hold off tx for now, unless symptoms change or culture results change (8) Cirrhosis, nonalcoholic: (9) Morbid obesity with BMI of 40.0-44.9, adult: (10) DVT prophylaxis: * As per psych team Supervising Physician Co-Signing Physician Notes Attending Attestation: Chart reviewed in detail, care plan d/w PA Ebony Ortiz. I agree w/ the glass components of her documentation. BPs have near-normalized after getting treatment for psych issues/anxiety. Some readings modestly high but agree with Ms Ortiz to not make adjustments at this time. Patient with morbid obesity - BMI 40.8. Patient with cirrhosis - 2nd DON?? 2nd to sarcoid?? If she has not had w/u for this as outpatient will make referral at time of d/c from U. Waqar Burris MD Subjective Patient evaluated at bedside this morning. She states her legs feel a little weak, but she has been using the exercise bike and walking more than she usually does. She states she did have burning with urination a couple of days ago but denies any current urinary symptoms. She also states she had a difficult time sleeping last night. She states she had previously been using a CPAP at home but has not been using it for months and does not have any tubing at this time. She does state that she has an appointment scheduled with Dr. Solomon later this month to re-evaluate and possibly increase her previous settings. She denies any chest pain, shortness of breath, n/v/d/c, fevers or chills at this time. Review of Systems Review of Systems: All systems reviewed & are unremarkable except as noted in HPI & below Physical Exam Constitutional: WD/WN, vitals as above Eyes: PERRL, conjunctivae normal, anicteric sclerae Neck: trachea midline, no thyromegaly Respiratory: normal respiratory effort, lungs clear to auscultation Cardiovascular: RRR, no murmur, no edema Gastrointestinal (Abdomen): normal bowel sounds, soft, nontender, no hepatosplenomegaly Neurologic: PERRL, EOMI, accommodation nl, no face palsy, no dysarthria Psychiatric: Orientation: alert and oriented x 3 cooperative anxious Results & Data Vital Signs (Past 12 Hours) Vital Signs Temp Pulse Resp BP 01/06/19 06:33 80 135/87 01/06/19 06:32 36.4 C L 73 20 135/86 PG Care Time/CCT Total # of Minutes Spent Total Time Spent with Patient: Total time spent is greater than 50% in coordination of care (as documented) at patient's floor/unit and/or counseling patient: (1) Abdominal pain Abdominal location: upper abdomen, unspecified Qualified Code(s): R10.10 - Upper abdominal pain, unspecified (2) Hypertension Hypertension type: essential hypertension Qualified Code(s): I10 - Essential (primary) hypertension
--- NOTE | 2019-01-06 12:41 | Psychiatric Progress Note ---
Date of Service January 06, 2019 Impression / Recommendations Impression 63-year-old single female with a history of bipolar 2, generalized anxiety disorder, and multiple medical problems who presents with worsening mood and suicidal ideation in the context of noncompliance with mental health treatment, including medications and therapy, as well as worsening medical conditions and increased social isolation. She did well and was stable on low-dose duloxetine for years, and agrees to resume it while monitoring closely for impact to liver and mood destabilization. She has never taken a mood stabilizer, but has had manic symptoms with an SSRI in the past, so close monitoring is indicated. She would also benefit from getting back into therapy, working on coping strategies for dealing with her multiple health issues, which she reports are overwhelming. Inpatient treatment is medically necessary due to the risk of suicide if discharged. (1) Suicidal ideation: Q 15 min checks for safety Work on healthy coping skills and discharge safety plan. 01/06 - Pt denies SI today, but admits to inability to contract for safety outside of the hospital setting (2) Bipolar II disorder: 01/05 - Reviewed OP records from [facility], diagnosed bipolar II and h/o manic symptoms on citalopram, but did the best on duloxetine 30mg daily (stable for years, and helped chronic pain). Reviewed risks, benefits and side effects and patient agreed to resume. Also discussed lurasidone (states she can't afford it), as well as lamotrigine. - Consider addition of mood stabilizer (lamotrigine?) - Collateral information from friends/supports, family meeting if indicated. - Refer for OP treatment. - Encourage group attendance and participation. 01/06 - Continue duloxetine 20mg daily - Reviewed recommendation to trial lamotrigine as mood stabilization agent, given it is a weight neutral and rather inexpensive option - Pt requesting information and was provided with an UpToDate patient handout, asking to discuss again tomorrow - Encourage group participation - Continue to arrange aftercare (3) Anxiety: TAL - resume SNRI, engage in therapy, work on healthy coping skills. (4) Hypertension: 01/05 - Poorly controlled, resume home dose of Cozaar and monitor. Will need f/u with PCP 01/06 - Hospitalist consultation requested; appreciate recommendations - Suggested continuation of home dose of losartan 100mg, as HTN is felt to be related to anxiety - Given reported lightheadedness after receiving prn clonidine, it was suggested to reduce dose to 0.05mg prn - and utilize for systolic BP >160 (5) Sleep apnea: 01/05 -patient reports diagnosis of obstructive sleep apnea and is prescribed CPAP, but has been noncompliant with it for years. Sleep is chronically poor and this is likely contributing to depression. She is aware that she needs to resume, and reports having an appointment with a sleep physician at [facility] physician group next month. (6) Kidney mass: Follow-up with urologist as recommended Risk Factors Assessment Male: No : Yes Do You Have Access To A Gun?: No Health Problems: Yes Mental Health Diagnoses: Yes Substance Use Disorders: No Previous Attempt: Yes Family History of Suicide: No Previous Psychiatric Hospitalization: No Hopelessness: Yes Smoker: No Protective Factors Assessment Temple Beliefs: Yes : No Responsible for Young Children: No Employed: No Stable Relationships: Yes Supportive Family: No Good Rapport with Provider: No Interval History Identifying Information HAILEY MATHIS is a 63-year-old F who currently lives alone in [place], has a history of depression, and was admitted on 01/04/19 21:31 on a 201 voluntary commitment for worsening depression and suicidal ideation. Chief Complaint "Not good. I'm trying to figure out why I'm feeling so sick." Review of Systems Notes Constitutional: report difficulty falling asleep Cardiovascular: denied Respiratory: denied Gastrointestinal: reports mild nausea Neurological: reports headache Psychiatric: denies symptoms other than stated above Total of at least 10 systems reviewed, pertinent positives as above and in HPI. Sleep Information Total Hours of Sleep: 6.5 Sleep Comments: pt on q-15 minute checks. pt given vistaril per rn. Meal Information Percent Meal Consumed - Breakfast: 100 Percent Meal Consumed - Lunch: 50 Percent Meal Consumed - Dinner: 70 Subjective Subjective Patient was seen & assessed and interval progress reviewed with treatment team. Staff report the patient continues to appear rather anxious and withdrawn on the unit. She rated her mood a 3-4/10 and "sad and irritable" yesterday evening. Patient was seen today to assess progress since admission. Pt states she is "not good", admitting she is "trying to figure out why I'm feeling so sick." Pt admits to current headache and mild nausea. She denies history of side effects related to initiating or discontinuing duloxetine. Pt states that she had difficulty sleeping last evening. Pt continues to question if medication will be helpful for her symptoms, stating "I'm not even sure Cymbalta helped." Pt was reminded of documentation from her previous psychiatric prescribers declaring an obvious improvement in mood on the medication. Pt was initially cooperative with a discuss about the potential benefit of adding a mood stabilization agent. She initially could not remember discussing medication options with the psychiatrist yesterday, and then began to name the very medications discussed. Pt tolerated a conversation about the risks, benefits, and potential side effects of lamotrigine and was agreeable to starting the medication, stating "I'll try it." She was informed of risk of rare Coleman- Johnsons syndrome, but when informed of titration schedule, she became irritable stating "No, I won't do it. I'm not going to keep messing with adding this, adding that, changing everything." This provider explained again the reason for this slow titration and was informed that several increases are generally needed in order to find benefit from the medication. Pt continued to voice concerns, but eventually stated "give me a day to think about it." She was accepting of patient handouts on the medication. Pt denies overt SI, but admits to continued low mood. She is unable to contract for safety outside of the hospital, reporting "I'm not feeling like I can function well enough." Pt denies acute needs or concerns at this time. Physical Exam Psychiatric Orientation: alert, oriented x 3, cooperative (superficially) and + guarded Apperance: appropriately dressed, appropriately groomed and appeared stated age Eye Contact: good eye contact Motor Behavior: steady gait and station (slow cautious ambulation) and no abnormal motor movements Speech: normal rate/rhythm/volume of speech (irritable tone at times) Affect: + depressed affect, + anxious affect and mood congruent with affect Mood: + depressed mood ("Not good") Thought Process: goal directed thought process, clear/coherent thought process and thought association intact Thought Content: reality based without delusions and + hopelessness Suicidal Thoughts: denies suicidal thoughts and denies suicidal plan But admits to inability to contract for safety outside of the hospital Homicidal Thoughts: denies homicidal thoughts Hallucinations: no auditory hallucinations and no visual hallucinations Cognition: attention grossly intact and language grossly intact Insight: + impaired insight Judgement: + poor judgement Vital Signs (Past 24 Hours) Last Vital Signs Temp 36.4 C L 01/06/19 06:32 Pulse 80 01/06/19 06:33 Resp 20 01/06/19 06:32 BP 135/87 01/06/19 06:33 Pulse Ox 99 01/04/19 21:16 Results & Data Current Inpatient Medications Current Inpatient Medications: Current Inpatient Medications Acetaminophen (Tylenol) 650 mg PO Q4H PRN PRN Reason: Headache or Minor Fever Stop: 02/03/19 22:42 Al Hydrox/Mg Hydrox/Simethicone (Maalox) 30 ml PO Q4H PRN PRN Reason: GI Upset Stop: 02/03/19 22:42 Bismuth Subsalicylate (Kaopectate) 15 ml PO PRN PRN PRN Reason: Loose Stool Stop: 02/03/19 22:42 Clonidine HCl (Catapres) 0.05 mg PO Q4H PRN PRN Reason: hypertension/anxiety Stop: 02/04/19 12:57 Duloxetine HCl (Cymbalta) 20 mg PO QAM LUPE Stop: 02/04/19 11:59 Last Admin: 01/06/19 09:03 Dose: 20 mg Documented by: Hydroxyzine HCl (Vistaril) 50 mg PO HSZ PRN PRN Reason: Insomnia Stop: 02/03/19 22:42 Last Admin: 01/06/19 01:31 Dose: 50 mg Documented by: Hydroxyzine HCl (Vistaril) 25 mg PO Q4H PRN PRN Reason: Anxiety Stop: 02/03/19 22:42 Losartan Potassium (Cozaar) 100 mg PO QAM LUPE Stop: 02/05/19 08:59 Last Admin: 01/06/19 09:03 Dose: 100 mg Documented by: Magnesium Hydroxide (Milk Of Magnesia) 30 ml PO DAILY PRN PRN Reason: Constipation Stop: 02/03/19 22:42 Sodium Chloride ([place] Nasal) 1 - 2 sprays NA PRN PRN PRN Reason: Nasal Dryness/Congestion Stop: 02/03/19 22:42 Mental Health & Subst Abuse Tx Therapist Name of Therapist: Denies/None Longitudinal Float Operator Name of Longitudinal Float Operator: Denies/None Post Discharge Appointments Primary Care Physician Name Of Family Doctor: HARLEEN Linn Date of Appointment with PCP: 01/20/19 Time of Appointment with PCP: 10:30 a.m. Provider Appointment Comment: [address] [facility] Specialist Name of Specialist: [facility] Urology - Dr. Chung Date of Appointment with Specialist: 01/20/19 Time of Appointment with Specialist: 4:10 p.m. Specialty Appointment Comment: [address] [facility] Other #1: Name of Aftercare Appointment: [facility] - Dr. Solomon Date of Aftercare Appointment: 02/03/19 Time of Aftercare Appointment: 1:00 p.m. #2: Name of Aftercare Appointment: [facility] - CT Sinus Scan Date of Aftercare Appointment: 01/13/19 Time of Aftercare Appointment: 11:00 a.m. (arrive by 10:30 a.m. please)
[2019-01-06] MEDS: cloNIDine HCl 0.1 MG TAB PO PRN (14:03)
[2019-01-07] MEDS: LOSARTAN POTASSIUM 25 MG TAB PO SCH (08:41)
[2019-01-07] MEDS: DULOXETINE HCL 20 MG CAP PO SCH (08:42)
--- NOTE | 2019-01-07 10:13 | Hospitalist Progress Note ---
Date of Service January 07, 2019 Assessment & Plan (1) Suicidal ideation: * As per psych team * Per patient, suicidal ideations returned this morning (2) Hypertension: * Pt's BPs were much more elevated on admission in the 170s-180s and she has had readings that were WNL in the last 24 hours. * Utox, CBC, PRP, TSH WNL on admission * BP did bump into the 150s-160 systolic yesterday (01/05) and patient was given dose of clonidine which dropped BP to 110s systolic and patient symptomatic with lightheadedness. * Outpatient BPs stable over past few months (most recent 132/90 on 12/24). Yesterday 135/97. * Today BP is 153/97 - patient states she did have difficult time as outpatient with various generic versions of losartan and fillers-- increased BP may be multi-factorial with increased anxiety * Continue home losartan 100mg * Continue to monitor * Consider 0.05 of clonidine if needed for SBP > 160 (3) MICHELLE (obstructive sleep apnea): * Per patient, however she has not used her CPAP at home for some time- she states she has appt with Dr. Solomon within the next month to re-evaluate and possibly change her settings (she is unaware of what they were)- pt has mask and machine at home but no tubing at this time * May benefit from CPAP overnight for most restful sleep, as well as earlier appointment with Dr. Solomon if possible * Per conversation with psych, may be able to accommodate patient in private room in the next day for CPAP (4) Cirrhosis, nonalcoholic: * Patient with chronic intermittent abdominal pain - previously advised that changing probiotic might help as well--recs for [place] EPS 5billion * Per patient, with known history of fatty liver * HIDA 07/06/18 was WNL * CTAP on 12/31/18 without bowel obstruction or acute process. Colonic diver ticulosis without evidence for acute diverticulitis. 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 Cirrhosis with small varices and mild splenomegaly which favor portal hypertension. * Previously following with Dr. Hooper as outpatient, but patient states she has not been back since they suggestive biopsy -- patient advised for follow-up given most recent imaging and no treatment at this time- patient to think about follow-up overnight and will be set up with Dr. Hooper as outpatient if agreeable in AM . (5) Prediabetes: * A1c 5.9 on 12/24 - previously 6.5 * No current medications * Continue to monitor as outpatient (6) Sarcoidosis of lung: * Per history- no current medications (7) Abnormal finding on urinalysis: * UA from admission + for leuk est, neg nitrites * Culture prelim- <1000 bacteria * As patient asymptomatic currently- hold off tx for now, unless symptoms change or culture results change (8) Morbid obesity with BMI of 40.0-44.9, adult: (9) DVT prophylaxis: * As per psych team Supervising Physician Co-Signing Physician Notes Attending Attestation: Chart reviewed in detail, care plan d/w ALPHONSO Ortiz. I agree w/ the glass components of her documentation. Patient with labile/fluctuation blood pressures - likely heavily influenced by significant anxiety. Already on max dose of losartan. Clonidine not a good second option for long-term use. In light of cirrhosis consider beta steve (inderal or nadalol). If she cannot tolerate beta steve consider calcium channel steve. Appreciate efforts to secure CPAP for MICHELLE as untreated MICHELLE will make BPs worse. Waqar Burris MD Subjective Patient evaluated this morning. She states she had a difficult time sleeping last night and had to take vistaril 50mg twice for a total of 100mg. She states she was awoken early this morning and is feeling not well rested. She states this morning her suicidal ideations were coming back. She states she had previously been on duloxetine in the past but states she had lied to her providers about taking it regularly and thinks it is not working for her. She also states she has a lot of things going on, with being told she has a cyst on her kidney, an enlarged spleen, and cirrhosis of her liver. She admits that she had previously been seeing Dr. Hooper but had not followed up after she was told she needed a biopsy. She states she has had a headache since restarting the duloxetine. She currently denies chest pain, shortness of breath, n/v/d, fever, chills. Review of Systems Review of Systems: All systems reviewed & are unremarkable except as noted in HPI & below Physical Exam Constitutional: WD/WN, vitals as above Eyes: PERRL, conjunctivae normal, anicteric sclerae Neck: trachea midline, no thyromegaly Respiratory: normal respiratory effort, lungs clear to auscultation Cardiovascular: RRR, no murmur, no edema Gastrointestinal (Abdomen): normal bowel sounds, soft, nontender, no hepatosplenomegaly Musculoskeletal: Head/Neck/Chest: + head abnormal to inspection, normocephalic and head atraumatic Neurologic: PERRL, EOMI, accommodation nl, no face palsy, no dysarthria Psychiatric: Orientation: alert and oriented x 3 Affect: + labile affect Mood: + depressed mood and + anxious mood Results & Data Vital Signs (Past 12 Hours) Vital Signs Temp Pulse Resp BP 01/07/19 06:36 82 153/97 H 01/07/19 06:35 36.7 C 81 20 151/94 H PG Care Time/CCT Total # of Minutes Spent Total Time Spent with Patient: Total time spent is greater than 50% in coordination of care (as documented) at patient's floor/unit and/or counseling patient: (1) Hypertension Hypertension type: essential hypertension Qualified Code(s): I10 - Essential (primary) hypertension
--- NOTE | 2019-01-07 10:34 | Psychiatric Progress Note ---
Date of Service January 07, 2019 Impression / Recommendations Impression 63-year-old single female with a history of bipolar 2, generalized anxiety disorder, and multiple medical problems who presents with worsening mood and suicidal ideation in the context of noncompliance with mental health treatment, including medications and therapy, as well as worsening medical conditions and increased social isolation. She did well and was stable on low-dose duloxetine for years, and agrees to resume it while monitoring closely for impact to liver and mood destabilization. She has never taken a mood stabilizer, but has had manic symptoms with an SSRI in the past, so close monitoring is indicated. She would also benefit from getting back into therapy, working on coping strategies for dealing with her multiple health issues, which she reports are overwhelming. Inpatient treatment is medically necessary due to the risk of suicide if discharged. (1) Suicidal ideation: Q 15 min checks for safety Work on healthy coping skills and discharge safety plan. 01/06 - Pt denies SI today, but admits to inability to contract for safety outside of the hospital setting 01/07 - Pt endorses SI this morning, with consideration to "drown myself or stab myself" - Is not able to contract for safety and admits, "I'm at my wit's end" (2) Bipolar II disorder: 01/05 - Reviewed OP records from [facility], diagnosed bipolar II and h/o manic symptoms on citalopram, but did the best on duloxetine 30mg daily (stable for years, and helped chronic pain). Reviewed risks, benefits and side effects and patient agreed to resume. Also discussed lurasidone (states she can't afford it), as well as lamotrigine. - Consider addition of mood stabilizer (lamotrigine?) - Collateral information from friends/supports, family meeting if indicated. - Refer for OP treatment. - Encourage group attendance and participation. 01/06 - Continue duloxetine 20mg daily - Reviewed recommendation to trial lamotrigine as mood stabilization agent, given it is a weight neutral and rather inexpensive option - Pt requesting information and was provided with an UpToDate patient handout, asking to discuss again tomorrow - Encourage group participation - Continue to arrange aftercare 01.07 - Continue current treatment regimen - reviewed again recommendation to initiate lamotrigine, patient presents as anxiety and overwhelmed with decision, but is not able today to consent to initiation of medication - She questions desire to continue duloxetine, but has difficulty tolerating conversation about recommended treatment due to level of anxiety - Current recommendation is to add lamotrigine to current dosage of duloxetine - patient considering sertraline or paroxetine should she desire to change antidepressant medications - Pt has historically responded best to medication recommendations not feeling pressured, but likely requires clear and simple recommendations at this time given severity of anxiety (3) Anxiety: TAL - resume SNRI, engage in therapy, work on healthy coping skills. 01/07 - Continue to utilize hydroxyzine prn for acute anxiety - Encourage development of healthy coping strategies, encourage participation in group programming (4) Hypertension: 01/05 - Poorly controlled, resume home dose of Cozaar and monitor. Will need f/u with PCP 01/06 - Hospitalist consultation requested; appreciate recommendations - Suggested continuation of home dose of losartan 100mg, as HTN is felt to be related to anxiety - Given reported lightheadedness after receiving prn clonidine, it was suggested to reduce dose to 0.05mg prn - and utilize for systolic BP >160 01/07 - Continue as above - Recommendations for treatment of sleep apnea as below (5) Sleep apnea: 01/05 -patient reports diagnosis of obstructive sleep apnea and is prescribed CPAP, but has been noncompliant with it for years. Sleep is chronically poor and this is likely contributing to depression. She is aware that she needs to resume, and reports having an appointment with a sleep physician at [facility] physician group next month. 01/07 - Reviewed recommendations from hospitalist team - Hospitalists have coordinated with respiratory to begin CPAP this evening - Pt placed on MNPR as per protocol for oxygen, per protocol she will also require 1:1 over night - Keep sleep medicine appointment next month for review (6) Kidney mass: Follow-up with urologist as recommended Risk Factors Assessment Male: No : Yes Do You Have Access To A Gun?: No Health Problems: Yes Mental Health Diagnoses: Yes Substance Use Disorders: No Previous Attempt: Yes Family History of Suicide: No Previous Psychiatric Hospitalization: No Hopelessness: Yes Smoker: No Protective Factors Assessment Christian Beliefs: Yes : No Responsible for Young Children: No Employed: No Stable Relationships: Yes Supportive Family: No Good Rapport with Provider: No Interval History Identifying Information HAILEY MATHIS is a 63-year-old F who currently lives alone in [place], has a history of depression, and was admitted on 01/04/19 21:31 on a 201 voluntary commitment for worsening depression and suicidal ideation. Chief Complaint "Not good. I had a terrible night, and I was suicidal this morning." Review of Systems Notes Constitutional: reports continued difficulty falling and remaining asleep Cardiovascular: denied Respiratory: denied Gastrointestinal: denied Neurological: denied Psychiatric: denies symptoms other than stated above Total of at least 10 systems reviewed, pertinent positives as above and in HPI. Sleep Information Total Hours of Sleep: 5.5 Sleep Comments: pt given vistaril per rn. pt on q-15 minute checks Meal Information Percent Meal Consumed - Breakfast: 75 Percent Meal Consumed - Lunch: 50 Percent Meal Consumed - Dinner: 75 Subjective Subjective Patient was seen & assessed and interval progress reviewed with nursing and social work. Staff report the patient has been appearing rather anxious and depressed on the unit. She had a visit with family and friends yesterday, but admits to feeling as though she has no one to support her. Pt did attend some programming, but was also isolative at times. Pt was seen today to assess progress since admission. Pt states she is "not good" today. She shares with this provider that she had a rather difficulty night and "I was suicidal this morning." She states that her thoughts led to consideration to "drown myself or stab myself." While she denies temptation to harm herself here on the unit, she does admit she would not feel safe being outside of the hospital due to these continued thoughts. Pt states the hopelessness is continuing to linger and "I'm at my wit's end." Pt requests to discuss medications more thoroughly at this time, as she states she reviewed the information she was provided about lamotrigine. Pt states, "this rash thing is super scary. No, no." This provider reviewed that the rash associated with Coleman-Johnsons syndrome is a serious concern should it occur, and that the medication is stopped if there is suspicion of the disorder. She was informed it is a rare side effect and that the standard titration schedule helps to reduce likelihood of its onset. This provider verbalized understanding of the patient's concern and was willing to answer additional questions or discuss other options. Pt requested to discuss other antidepressant medications. She began listing various medication names, unable to tell this provider where she had heard of them. This provider explained the risks and benefits of each medication presented, but also reviewed concern about remaining on monotherapy with concern for excessive spending on SSRIs in the past, and likely diagnosis of bipolar II disorder. Pt asked many questions repeatedly, despite this provider's attempts to explain information simply and clearly. Pt admits to this provider that even prior to discontinuing her duloxetine, she had not been taking the medication appropriate for quite some time. She states, "I made me not feel anything. I could be at a and I wouldn't cry. I didn't like that, so I stopped taking it." Pt admits, "I was maybe taking it every other day at most. I've lied to Paulina about this for years. I feel terrible." Pt was unable to recall how long she had taken the medication on a daily basis prior to adjusting to her own regimen. Pt denies needs or concerns today, but admits she is struggling. She was encouraged to reach out to this provider with any additional medication questions today. Physical Exam Psychiatric Orientation: alert and oriented x 3 Apperance: appropriately dressed, appropriately groomed and appeared stated age Eye Contact: good eye contact Motor Behavior: no abnormal motor movements (observed while laying in bed) Speech: normal rate/rhythm/volume of speech Affect: + anxious affect, + constricted affect and mood congruent with affect Mood: + depressed mood ("Not good") and + anxious mood ("I'm at my wit's end") Thought Process: + concrete thought process Mildly disorganized and scattered, requiring for statements to be repeated multiple times before verbalizing understanding Thought Content: + preoccupation (with concern for medication changes), + cognitive distortions, + hopelessness and + worthlessness Suicidal Thoughts: + reports suicidal thoughts (Admits to SI this morning) and + reports suicidal plan (reports thoughts to "drown myself or stab myself") Pt reports "I'm at my wit's end" Homicidal Thoughts: denies homicidal thoughts Hallucinations: no auditory hallucinations and no visual hallucinations Cognition: attention grossly intact and language grossly intact; + recent memory not intact Insight: + impaired insight Judgement: + impaired judgement Vital Signs (Past 24 Hours) Last Vital Signs Temp 36.7 C 01/07/19 06:35 Pulse 82 10/24/19 06:36 Resp 20 01/07/19 06:35 BP 153/97 H 01/07/19 06:36 Pulse Ox 99 01/04/19 21:16 Results & Data Current Inpatient Medications Current Inpatient Medications: Current Inpatient Medications Acetaminophen (Tylenol) 650 mg PO Q4H PRN PRN Reason: Headache or Minor Fever Stop: 02/03/19 22:42 Al Hydrox/Mg Hydrox/Simethicone (Maalox) 30 ml PO Q4H PRN PRN Reason: GI Upset Stop: 02/03/19 22:42 Bismuth Subsalicylate (Kaopectate) 15 ml PO PRN PRN PRN Reason: Loose Stool Stop: 02/03/19 22:42 Clonidine HCl (Catapres) 0.05 mg PO Q4H PRN PRN Reason: hypertension/anxiety Stop: 02/04/19 12:57 Last Admin: 01/06/19 14:03 Dose: 0.05 mg Documented by: Duloxetine HCl (Cymbalta) 20 mg PO QAM LUPE Stop: 02/04/19 11:59 Last Admin: 01/07/19 08:42 Dose: 20 mg Documented by: Hydroxyzine HCl (Vistaril) 50 mg PO HSZ PRN PRN Reason: Insomnia Stop: 02/03/19 22:42 Last Admin: 01/06/19 23:05 Dose: 50 mg Documented by: Hydroxyzine HCl (Vistaril) 25 mg PO Q4H PRN PRN Reason: Anxiety Stop: 02/03/19 22:42 Losartan Potassium (Cozaar) 100 mg PO QAM LUPE Stop: 02/05/19 08:59 Last Admin: 01/07/19 08:41 Dose: 100 mg Documented by: Magnesium Hydroxide (Milk Of Magnesia) 30 ml PO DAILY PRN PRN Reason: Constipation Stop: 02/03/19 22:42 Sodium Chloride ([place] Nasal) 1 - 2 sprays NA PRN PRN PRN Reason: Nasal Dryness/Congestion Stop: 02/03/19 22:42 Mental Health & Subst Abuse Tx Therapist Name of Therapist: Denies/None Warm In Name of Warm In: Denies/None Post Discharge Appointments Primary Care Physician Name Of Family Doctor: HARLEEN Linn Date of Appointment with PCP: 01/20/19 Time of Appointment with PCP: 10:30 a.m. Provider Appointment Comment: [id number] [facility] Specialist Name of Specialist: [facility] - Dr. Chung Date of Appointment with Specialist: 01/20/19 Time of Appointment with Specialist: 4:10 p.m. Specialty Appointment Comment: [facility] Other #1: Name of Aftercare Appointment: [facility] - Dr. Solomon Date of Aftercare Appointment: 02/03/19 Time of Aftercare Appointment: 1:00 p.m. #2: Name of Aftercare Appointment: [facility] - CT Sinus Scan Date of Aftercare Appointment: 01/13/19 Time of Aftercare Appointment: 11:00 a.m. (arrive by 10:30 a.m. please) (1) Hypertension Hypertension type: essential hypertension Qualified Code(s): I10 - Essential (primary) hypertension
[2019-01-08] MEDS: DULOXETINE HCL 20 MG CAP PO SCH (08:38)
[2019-01-08] MEDS: LOSARTAN POTASSIUM 25 MG TAB PO SCH (08:38)
[2019-01-08] MEDS: cloNIDine HCl 0.1 MG TAB PO PRN (09:13)
--- NOTE | 2019-01-08 14:14 | Hospitalist Progress Note ---
Date of Service January 08, 2019 Assessment & Plan (1) Suicidal ideation: * As per psych team (2) Hypertension: * Pt's BPs were much more elevated on admission in the 170s-180s and she has had readings that were WNL in the last 24 hours. * Utox, CBC, PRP, TSH WNL on admission * BP did bump into the 150s-160 systolic 01/05 and patient was given dose of clonidine which dropped BP to 110s systolic and patient symptomatic with lightheadedness. * Outpatient BPs stable over past few months (most recent 132/90 on 12/24). * Today BP is 164/94 - patient states she did have difficult time as outpatient with various generic versions of losartan and fillers-- increased BP may be multi-factorial with increased anxiety * Continue home losartan 100mg * Continue to monitor * D/C Clonidine * Will initiate low dose CCB instead moving forward- Amlodipine 2.5mg --with switch from SNRI to SSRI, as well as addition of mood stabilizer, amlodipine may only be needed for the short term (3) MICHELLE (obstructive sleep apnea): * Per patient, however she has not used her CPAP at home for some time- she states she has appt with Dr. Solomon within the next month to re-evaluate and possibly change her settings (she is unaware of what they were)- pt has mask and machine at home but no tubing at this time * May benefit from CPAP overnight for most restful sleep, however patient unable to tolerate CPAP last night * Will need to follow-up with Dr. 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 Colonic diverticulosis without evidence for acute diverticulitis. 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 Cirrhosis with small varices and mild splenomegaly which favor portal hypertension. * Previously following with Dr. Hooper as outpatient, but patient states she has not been back since they suggestive biopsy -- patient advised for follow-up given most recent imaging and no treatment at this time- patient to think about follow-up and will be set up with Dr. Hooper as outpatient if agreeable . (5) Prediabetes: * A1c 5.9 on 12/24 - previously 6.5 * No current medications * Continue to monitor as outpatient (6) Sarcoidosis of lung: * Per history- no current medications (7) Abnormal finding on urinalysis: * UA from admission + for leuk est, neg nitrites * Culture prelim- <1000 bacteria * As patient asymptomatic currently- hold off tx for now, unless symptoms change or culture results change (8) Morbid obesity with BMI of 40.0-44.9, adult: (9) DVT prophylaxis: * As per psych team Supervising Physician Co-Signing Physician Notes Attending Attestation: Chart reviewed in detail, care plan d/w ALPHONSO Ortiz. I agree w/ the glass components of her documentation. Patient continues with labile/fluctuating blood pressures. Anxiety likely driving much of the lability. Patient now seems willing to take low-dose amlodipine. Consider beta steve (HR has plenty of room for such) - would go with inderal or nadalol in light of cirrhosis - especially if she ends up NOT allowing CCB or the CCB is not effective. Inderal has been used in the past for panic attacks/anxiety issues. Agree w/ f/u with GI post-discharge for cirrhosis. Waqar Burris MD Subjective Patient evaluated this afternoon. She states she did not tolerate CPAP well last night, and has had increasing anxiety regarding switching from duloxetine to p rozac and lamictal. She also has worries regarding too many changes and states she has had increased anxiety. Lengthy conversation with friend present, resulted in patient expressing a sense of relief regarding medication changes and initiation of mood stabilizer as well as SSRI; she states she is also agreeable to initiate low dose amlodipine for better blood pressure control at this time after much discussion regarding various classes, agents, and side effects. Review of Systems Constitutional: + insomnia Eyes: no diplopia and no eye pain Ear, Nose, Mouth, Throat: no sore throat and no dysphagia Respiratory: no cough and no chest congestion Cardiovascular: no chest pain Gastrointestinal: + abdominal pain (IBS); no nausea and no vomiting Genitourinary: no dysuria and no urinary frequency Neurologic: + headache(s); no abnormal speech Psychiatric: + depression and + anxiety Physical Exam Physical Exam: Constitutional WD/WN, vitals as above Eyes PERRL, conjunctivae normal, anicteric sclerae Neck trachea midline, no thyromegaly Respiratory normal respiratory effort, lungs clear to auscultation Cardiovascular RRR, no murmur, no edema Gastrointestinal (Abdomen) normal bowel sounds, soft, nontender, no hepatosplenomegaly Musculoskeletal Head/Neck/Chest: + head abnormal to inspection, normocephalic and head atraumatic Neurologic PERRL, EOMI, accommodation nl, no face palsy, no dysarthria Psychiatric Orientation: alert and oriented x 3 Affect: + labile affect Mood: + depressed mood and + anxious mood Results & Data Vital Signs (Past 12 Hours) Vital Signs Temp Pulse Pulse Resp BP BP 01/08/19 06:33 36.6 C 72 80 18 164/94 H 144/85 H PG Care Time/CCT Total # of Minutes Spent Total Time Spent with Patient: Total time spent is greater than 50% in coordination of care (as documented) at patient's floor/unit and/or counseling patient: (1) Hypertension Hypertension type: essential hypertension Qualified Code(s): I10 - Essential (primary) hypertension
--- NOTE | 2019-01-08 16:59 | Psychiatric Progress Note ---
Date of Service January 08, 2019 Impression / Recommendations Impression 63-year-old single female with a history of bipolar 2, generalized anxiety disorder, and multiple medical problems who presents with worsening mood and suicidal ideation in the context of noncompliance with mental health treatment, including medications and therapy, as well as worsening medical conditions and increased social isolation. She did well and was stable on low-dose duloxetine for years, and agrees to resume it while monitoring closely for impact to liver and mood destabilization. She has never taken a mood stabilizer, but reportedly had manic symptoms with an SSRI in the past, so close monitoring is indicated. She would also benefit from getting back into therapy, working on coping strategies for dealing with her multiple health issues, which she reports are overwhelming. Inpatient treatment is medically necessary due to the risk of suicide if discharged. Today, the patient does not provide a particularly convincing history consistent with ramona or hypomania in the past She does note that she experiences mood swings, but these mood swings seem to be largely dependent upon situational factors, and are often related to feelings of acceptance versus feelings of abandonment. She does acknowledge that when her mood is improved she may spend more money than she ought to, given her limited income. However, when asked to provide specific examples she says that "sometimes" she has gone to the grocery store and bought more food than she is able to consume before the [place] items spoiled. What does seem clear as the patient has difficulty regulating her mood. We agree that she should be taking a mood stabilizer, and after an extensive discussion regarding risks and benefits of mood stabilizing medications the patient did agree to begin lamotrigine 25 mg daily, with a plan to titrate as indicated. We also decided that given the patient's report today that although she has responded to duloxetine in the past, restarting it recently has, caused her to become more depressed and, today, she feels that it induced "thoughts of stabbing herself." Accordingly, we recommend that the patient began Prozac 10 mg a day, titrated as indicated, with the idea that as a long-acting antidepressant medication she may be able to inadvertently "skip" dosages without necessarily affecting her treatment response. Also, at therapeutic dosages this may help with her tendency to be obsessive and overly ruminative. (1) Suicidal ideation: Q 15 min checks for safety Work on healthy coping skills and discharge safety plan. 01/06 - Pt denies SI today, but admits to inability to contract for safety outside of the hospital setting 01/07 - Pt endorses SI this morning, with consideration to "drown myself or stab myself" - Is not able to contract for safety and admits, "I'm at my wit's end" 01/08 -The patient continues to describe feeling hopeless and helpless. She acknowledges ongoing thoughts of suicide, including thoughts of stabbing herself and drowning herself,as well as deliberately driving her car at full speed into a stationary object such as a tree. -She is unable to contract for safety in the community. She does tell us that she does not have any current thoughts of physically harming herself in the hospital, although she also says that she cannot guarantee that such thoughts will emerge. She does, however, promised that she will let us know if such thoughts developed during the hospital stay and prior to actually acting on them. (2) Bipolar II disorder: 01/05 - Reviewed OP records from [facility], diagnosed bipolar II and h/o manic symptoms on citalopram, but did the best on duloxetine 30mg daily (stable for years, and helped chronic pain). Reviewed risks, benefits and side effects and patient agreed to resume. Also discussed lurasidone (states she can't afford it), as well as lamotrigine. - Consider addition of mood stabilizer (lamotrigine?) - Collateral information from friends/supports, family meeting if indicated. - Refer for OP treatment. - Encourage group attendance and participation. 01/06 - Continue duloxetine 20mg daily - Reviewed recommendation to trial lamotrigine as mood stabilization agent, given it is a weight neutral and rather inexpensive option - Pt requesting information and was provided with an UpToDate patient handout, asking to discuss again tomorrow - Encourage group participation - Continue to arrange aftercare 01/07 -The diagnosis of bipolar disorder was evidently based on the opinion of her previous outpatient provider, individual who is quite familiar with the patient and her illness. Although the patient does not independently provide a clear history consistent with the diagnoses of ramona or hypomania, what is quite clear is that she has a long-standing history of difficulty regulating her mood, particularly when issues of abandonment may arise. -For the above reason we have begun the patient on lamotrigine 25 mg daily, and will titrate this dose on a semilunar basis, as indicated and tolerated. Material risks of lamotrigine, including but not limited to's sedation and Coleman-Tenzin syndrome were reviewed with the patient by Dr. Vance. She asked a number of questions, and approached several staff members for additional information. Following formal review with Dr. Vance today she agreed to begin lamotrigine. -The patient's primary mood symptom appears to be depression, and with the addition of a mood stabilizing agent we plan to pursue antidepressant treatment. Because of the possible negative placebo effect now associated with duloxetine and the patient reports that this medication has been causing her to be "more depressed" and more suicidal, we recommended fluoxetine 10 mg daily, to be titrated as indicated. We feel that the choice of fluoxetine has the advantage of being a long-acting antidepressant medication that may allow the patient to intentionally or intermittently "skip" dosages without significant negative therapeutic disadvantage. Also, we are struck by the obsessive nature of the patient's approach to all decisions ("analysis paralysis") and, hopefully, at a standard dose of fluoxetine may assist the patient her obsessive thinking. Material risks and anticipated benefits of fluoxetine were reviewed with the patient and after asking a number of questions and after asking us to please start at a low dose, the patient indicated understanding and agreement. 01.07 - Continue current treatment regimen - reviewed again recommendation to initiate lamotrigine, patient presents as anxiety and overwhelmed with decision, but is not able today to consent to initiation of medication - She questions desire to continue duloxetine, but has difficulty tolerating conversation about recommended treatment due to level of anxiety - Current recommendation is to add lamotrigine to current dosage of duloxetine - patient considering sertraline or paroxetine should she desire to change antidepressant medications - Pt has historically responded best to medication recommendations not feeling pressured, but likely requires clear and simple recommendations at this time given severity of anxiety (3) Anxiety: TAL - resume SNRI, engage in therapy, work on healthy coping skills. 01/07 - Continue to utilize hydroxyzine prn for acute anxiety - Encourage development of healthy coping strategies, encourage participation in group programming (4) Hypertension: 01/05 - Poorly controlled, resume home dose of Cozaar and monitor. Will need f/u with PCP 01/06 - Hospitalist consultation requested; appreciate recommendations - Suggested continuation of home dose of losartan 100mg, as HTN is felt to be related to anxiety - Given reported lightheadedness after receiving prn clonidine, it was suggested to reduce dose to 0.05mg prn - and utilize for systolic BP >160 01/07 - Continue as above - Recommendations for treatment of sleep apnea as below 01/08 -Begin Prozac 10 mg a day and titrate as indicated. The patient has been advised this medication may be expected to assist with anxiety. (5) Sleep apnea: 01/05 -patient reports diagnosis of obstructive sleep apnea and is prescribed CPAP, but has been noncompliant with it for years. Sleep is chronically poor and this is likely contributing to depression. She is aware that she needs to resume, and reports having an appointment with a sleep physician at [facility] physician group next month. 01/07 - Reviewed recommendations from hospitalist team - Hospitalists have coordinated with respiratory to begin CPAP this evening - Pt placed on MNPR as per protocol for oxygen, per protocol she will also require 1:1 over night - Keep sleep medicine appointment next month for review 01/08 -The patient was unable to tolerate a CPAP last night and after a brief trial insisted on not wearing it. Subsequent to that, the patient was very anxious and had difficulty falling back to sleep. She is told us that she will refuse to wear her CPAP machine and is unwilling to consider alternative treatments at this time. CPAP was discontinued. (6) Kidney mass: Follow-up with urologist as recommended Risk Factors Assessment Male: No : Yes Do You Have Access To A Gun?: No Health Problems: Yes Mental Health Diagnoses: Yes Substance Use Disorders: No Previous Attempt: Yes Family History of Suicide: No Previous Psychiatric Hospitalization: No Hopelessness: Yes Smoker: No Protective Factors Assessment Holiness Beliefs: Yes : No Responsible for Young Children: No Employed: No Stable Relationships: Yes Supportive Family: No Good Rapport with Provider: No Interval History Identifying Information HAILEY MATHIS is a 63-year-old F who currently lives alone in [place], has a history of depression, and was admitted on 01/04/19 21:31 on a 201 voluntary commitment for worsening depression and suicidal ideation. Chief Complaint "Depression. Suicide.". Review of Systems Sleep Information Total Hours of Sleep: 4.5 Sleep Comments: pt given vistaril per rn. pt on q-15 minute checks Meal Information Percent Meal Consumed - Breakfast: 50 Percent Meal Consumed - Lunch: 50 Percent Meal Consumed - Dinner: 50 Subjective Subjective Patient was seen & assessed and interval progress reviewed with treatment team. I met individually with the patient in order to assess her current mental status, evaluate her response to treatment, discussing coordinate any necessary changes in the patient's treatment regimen with the patient, and address issues, questions and concerns that may arise. The patient had agreed to resume a medication that she reports had been successful, at least for a time, on an outpatient basisnamely duloxetine. However, the patient also acknowledges that she had been misrepresenting the truth to her outpatient provider regarding her adherence with duloxetine and that she done this for "a couple years." Specifically, she said that she was taking it either "not at all" or "may be every other day or something." She tells us that she stopped taking the medication because she thought it was not helping. Today, after resuming duloxetine the patient reported that she felt that it was making her depression "worse" and she reported to staff that she was having thoughts of stabbing herself. When I met with her today the patient said that she feels that her problem is that she lacks community support, struggles financially, feels isolated and "lonely," and feels helpless to make any positive changes in his regard. She also tells me that she made a conscious choice many years ago to remain single and to live with her mother. She notes that, generally, she was quite satisfied to be living with her mother, but her mother approximately 5 years ago, and her father had in the 1970s. She does have a sister who provides support, but she describes the sister is being "too fragile to be somebody that I could lean on." She also notes that she has several friends, but these friends are occupied with her own concerns and busy lives. One friend is caring for a brother who has advanced cancer, and another friend is focused on her who is undergoing treatment for depression. She is active in her [employer]) but while she believes that there are persons there who would be to assist her, she feels reluctant to call upon them because she knows that each is busy and fully occupied. She carried a diagnosis of bipolar disorder prior to admission. Today, she does not provide a clear history consistent with bipolar disorder, and her mood fluctuations may be more likely to occur within the context of situational factors an disappointments, such as feelings of abandonment or isolation. When asked about her reported history of excessive spending, she says "sometimes I go to the grocery store and I buy more food than I ought to, and sometimes it goes bad before I could eat it." We spends most of today's encounter discussing medication treatment options. We are recommending a mood stabilizer, specifically lamotrigine 25 mg daily with semilunar titration. Also, because the patient may have a negative placebo response to duloxetine at this pointgiven her report today that she feels that it is making her "worse" and that it is causing her to have thoughts of stabbing herselfI have recommended fluoxetine (Prozac) beginning at a low dose and titrated as indicated. The patient processed a great deal about both medications and required support and information from a number of staff members, and in particular from me. She had intrusive thoughts that Prozac and other "new" medications might cause her to become dyscontrol or violent, even though she acknowledges that she has never been this controlled or violent in the past. Certainly, there are symptoms of obsessive ruminations, and I advised her that Prozac, at the proper dose, may be effective in treating depression, anxiety, and obsessive thinking. We also reviewed the material risks associated with lamotrigine, including, but not limited to sedation and Coleman-Tenzin syndrome. Patient that she will let us know if she develops any form of a rash and will monitor for same. I suggested that she take lamotrigine at bedtime but that it may assist her initial and intermittent insomnia. We discussed pharmacologic interventions for her faculty sleeping. She says that she feels that the fact that she is not sleeping well and some nights does not sleep at all may be the primary reason she is feeling depresse. However, I made a number of suggestions and she replied by telling me that she does not want any additional medications. When I asked her if that was true even if it helped her sleep, she said "I can take hydroxyzine. That works sometimes." Patient tells me that she did not sleep at all last night, but nursing reports contradict this. Physical Exam Psychiatric Orientation: alert and oriented x 3 Apperance: appropriately dressed, appropriately groomed and appeared stated age Eye Contact: good eye contact Motor Behavior: + psychomotor retardation The patient's speech is spontaneous and delivered at a normal volume. However it is somewhat slowed Affect: + depressed affect Mood: + depressed mood and + anxious mood Thought Process: + concrete thought process Thought Content: reality based without delusions The patient reports today that she has been having thoughts of stabbing herself. We discussed safety in the hospital, and the patient does tell us that she feels that she will be able to let us know if she has an impulse to physically harm herself here in the hospital. She also notes that she does not have any current plan to harm herself in the hospital, but acknowledges that thoughts of hurting herself while here may occur. She also tells us that she does not believe she would be safe to return to the community because of her ongoing intrusive thoughts of suicide. Homicidal Thoughts: denies homicidal thoughts Hallucinations: no auditory hallucinations Cognition: recent memory grossly intact, remote memory grossly intact, attention grossly intact and language grossly intact Estimated Intelligence: average estimated intelligence Insight: + fair insight Judgement: + fair judgement Vital Signs (Past 24 Hours) Last Vital Signs Temp 36.6 C 01/08/19 06:33 Pulse 80 01/08/19 06:33 Resp 18 01/08/19 06:33 BP 164/94 H 01/08/19 06:33 Pulse Ox 97 01/07/19 23:18 Results & Data Current Inpatient Medications Current Inpatient Medications: Current Inpatient Medications Acetaminophen (Tylenol) 650 mg PO Q4H PRN PRN Reason: Headache or Minor Fever Stop: 02/03/19 22:42 Al Hydrox/Mg Hydrox/Simethicone (Maalox) 30 ml PO Q4H PRN PRN Reason: GI Upset Stop: 02/03/19 22:42 Amlodipine Besylate (Norvasc) 2.5 mg PO QAM LUPE Stop: 02/08/19 08:59 Bismuth Subsalicylate (Kaopectate) 15 ml PO PRN PRN PRN Reason: Loose Stool Stop: 02/03/19 22:42 Fluoxetine HCl (Prozac) 10 mg PO QAM LUPE Stop: 02/08/19 08:59 Hydroxyzine HCl (Vistaril) 50 mg PO HSZ PRN PRN Reason: Insomnia Stop: 02/03/19 22:42 Last Admin: 01/08/19 00:56 Dose: 50 mg Documented by: Hydroxyzine HCl (Vistaril) 25 mg PO Q4H PRN PRN Reason: Anxiety Stop: 02/03/19 22:42 Last Admin: 01/08/19 04:41 Dose: 25 mg Documented by: Lamotrigine (Lamictal) 25 mg PO HS LUPE Stop: 02/07/19 21:59 Losartan Potassium (Cozaar) 100 mg PO QAM LUPE Stop: 02/05/19 08:59 Last Admin: 01/08/19 08:38 Dose: 100 mg Documented by: Magnesium Hydroxide (Milk Of Magnesia) 30 ml PO DAILY PRN PRN Reason: Constipation Stop: 02/03/19 22:42 Sodium Chloride ([place] Nasal) 1 - 2 sprays NA PRN PRN PRN Reason: Nasal Dryness/Congestion Stop: 02/03/19 22:42 Mental Health & Subst Abuse Tx Psychiatrist Name of Psychiatrist: Dawna Choi [facility] Psychiatrist's Date of Appointment with Psychiatrist: 01/26/19 Time of Appointment with Psychiatrist: 1pm Psychiatric Appointment Comment: [address] [place] [address] Therapist Name of Therapist: Sera Munoz [facility] Therapist's Phone Number: [phone] Date of Therapist Appointment: 01/15/19 Time of Therapist Appointment: 1pm Therapy Appointment Comment: [phone] [facility] [id number] Land Economist Name of Land Economist: Denies/None Post Discharge Appointments Primary Care Physician Name Of Family Doctor: [facility] Date of Appointment with PCP: 01/20/19 Time of Appointment with PCP: 10:30 a.m. Provider Appointment Comment: [id number] [facility] Specialist Name of Specialist: [facility] - Dr. Chung Date of Appointment with Specialist: 01/20/19 Time of Appointment with Specialist: 4:10 p.m. Specialty Appointment Comment: [address] [facility] Contact Information Discharge Discharge Address: [address] [place] [id number] (1) Hypertension Hypertension type: essential hypertension Qualified Code(s): I10 - Essential (primary) hypertension
[2019-01-08] MEDS: ACETAMINOPHEN 325 MG TAB PO PRN (20:28)
[2019-01-08] MEDS: lamoTRIgine 25 MG TAB PO SCH (21:47)
[2019-01-09] MEDS ORDERED: AMLODIPINE BESYLATE 5 MG TAB PO ONE (06:00)
[2019-01-09] MEDS ORDERED: AMLODIPINE BESYLATE 5 MG TAB PO SCH (09:00)
[2019-01-09] MEDS: LOSARTAN POTASSIUM 25 MG TAB PO SCH (09:16)
[2019-01-09] MEDS: FLUOXETINE HCL 10 MG CAP PO SCH (09:17)
[2019-01-09] MEDS: PROPRANOLOL HCL 60 MG LA CAP PO SCH ×2 (09:23→09:32)
--- NOTE | 2019-01-09 09:49 | Psychiatric Progress Note ---
Date of Service January 09, 2019 Impression / Recommendations Impression 63-year-old single female with a history of bipolar 2, generalized anxiety disorder, and multiple medical problems who presents with worsening mood and suicidal ideation in the context of noncompliance with mental health treatment, including medications and therapy, as well as worsening medical conditions and increased social isolation. She did well and was stable on low-dose duloxetine for years, and agrees to resume it while monitoring closely for impact to liver and mood destabilization. She has never taken a mood stabilizer, but reportedly had manic symptoms with an SSRI in the past, so close monitoring is indicated. She would also benefit from getting back into therapy, working on coping strategies for dealing with her multiple health issues, which she reports are overwhelming. Inpatient treatment is medically necessary due to the risk of suicide if discharged. (1) Suicidal ideation: Q 15 min checks for safety Work on healthy coping skills and discharge safety plan. 01/06 - Pt denies SI today, but admits to inability to contract for safety outside of the hospital setting 01/07 - Pt endorses SI this morning, with consideration to "drown myself or stab myself" - Is not able to contract for safety and admits, "I'm at my wit's end" 01/08 -The patient continues to describe feeling hopeless and helpless. She acknowledges ongoing thoughts of suicide, including thoughts of stabbing herself and drowning herself,as well as deliberately driving her car at full speed into a stationary object such as a tree. -She is unable to contract for safety in the community. She does tell us that she does not have any current thoughts of physically harming herself in the hospital, although she also says that she cannot guarantee that such thoughts will emerge. She does, however, promised that she will let us know if such thoughts developed during the hospital stay and prior to actually acting on them. 01/09/2019 -Patient appears more irritable today but denying active suicidal ideation this morning which she attributes to improved sleep last night. Remains at elevated risk if discharged prematurely (2) Bipolar II disorder: 01/05 - Reviewed OP records from [facility], diagnosed bipolar II and h/o manic symptoms on citalopram, but did the best on duloxetine 30mg daily (stable for years, and helped chronic pain). Reviewed risks, benefits and side effects and patient agreed to resume. Also discussed lurasidone (states she can't afford it), as well as lamotrigine. - Consider addition of mood stabilizer (lamotrigine?) - Collateral information from friends/supports, family meeting if indicated. - Refer for OP treatment. - Encourage group attendance and participation. 01/06 - Continue duloxetine 20mg daily - Reviewed recommendation to trial lamotrigine as mood stabilization agent, given it is a weight neutral and rather inexpensive option - Pt requesting information and was provided with an UpToDate patient handout, asking to discuss again tomorrow - Encourage group participation - Continue to arrange aftercare 01/07 -The diagnosis of bipolar disorder was evidently based on the opinion of her previous outpatient provider, individual who is quite familiar with the patient and her illness. Although the patient does not independently provide a clear history consistent with the diagnoses of ramona or hypomania, what is quite clear is that she has a long-standing history of difficulty regulating her mood, particularly when issues of abandonment may arise. -For the above reason we have begun the patient on lamotrigine 25 mg daily, and will titrate this dose on a semilunar basis, as indicated and tolerated. Material risks of lamotrigine, including but not limited to's sedation and Coleman-Tenzin syndrome were reviewed with the patient by Dr. Vance. She asked a number of questions, and approached several staff members for additional information. Following formal review with Dr. Vance today she agreed to begin lamotrigine. -The patient's primary mood symptom appears to be depression, and with the addition of a mood stabilizing agent we plan to pursue antidepressant treatment. Because of the possible negative placebo effect now associated with duloxetine and the patient reports that this medication has been causing her to be "more depressed" and more suicidal, we recommended fluoxetine 10 mg daily, to be titrated as indicated. We feel that the choice of fluoxetine has the advantage of being a long-acting antidepressant medication that may allow the patient to intentionally or intermittently "skip" dosages without significant negative therapeutic disadvantage. Also, we are struck by the obsessive nature of the patient's approach to all decisions ("analysis paralysis") and, hopefully, at a standard dose of fluoxetine may assist the patient her obsessive thinking. Material risks and anticipated benefits of fluoxetine were reviewed with the patient and after asking a number of questions and after asking us to please start at a low dose, the patient indicated understanding and agreement. 01.07 - Continue current treatment regimen - reviewed again recommendation to initiate lamotrigine, patient presents as anxiety and overwhelmed with decision, but is not able today to consent to initiation of medication - She questions desire to continue duloxetine, but has difficulty tolerating conversation about recommended treatment due to level of anxiety - Current recommendation is to add lamotrigine to current dosage of duloxetine - patient considering sertraline or paroxetine should she desire to change antidepressant medications - Pt has historically responded best to medication recommendations not feeling pressured, but likely requires clear and simple recommendations at this time given severity of anxiety 01/09/2019 -Patient was started on Lamictal and Prozac yesterday. More irritable this morning, possibly associated with discontinuation of duloxetine as irritability preceded Prozac first dose and felt unlikely medication side effect sister with Lamictal last evening. In setting of irritability, I feel Prozac might not be the best option for her as it can be problematically activating and the half- life is very long such that it can be difficult to stop quickly if necessary. I suggested we consider something a little more calming, such as buspirone, however she appeared overwhelmed by all the medication changes and refused but agreed to consider another change tomorrow (3) Anxiety: TAL - resume SNRI, engage in therapy, work on healthy coping skills. 01/07 - Continue to utilize hydroxyzine prn for acute anxiety - Encourage development of healthy coping strategies, encourage participation in group programming 01/09/2019 -More irritable this morning. Considering BuSpar trial. Recommended she utilize the hydroxyzine as needed throughout the day (4) Hypertension: 01/05 - Poorly controlled, resume home dose of Cozaar and monitor. Will need f/u with PCP 01/06 - Hospitalist consultation requested; appreciate recommendations - Suggested continuation of home dose of losartan 100mg, as HTN is felt to be related to anxiety - Given reported lightheadedness after receiving prn clonidine, it was suggested to reduce dose to 0.05mg prn - and utilize for systolic BP >160 01/07 - Continue as above - Recommendations for treatment of sleep apnea as below 01/08 -Begin Prozac 10 mg a day and titrate as indicated. The patient has been advised this medication may be expected to assist with anxiety. 01/09/2019 -We appreciate input from medical service. Per medical progress note 01/08/2019 clonidine prn discontinued by hospitalist and low-dose amlodipine initiated, however it appears the amlodipine was discontinued and propranolol LA 60 mg daily started instead. -Reviewed risks of uncontrolled hypertension with patient today. She demonstrated an illogical belief that medication recommendations are being, at least in part, driven by "bureaucracy" which likely impacts her willingness to comply with treatment recommendations (5) Sleep apnea: 01/05 -patient reports diagnosis of obstructive sleep apnea and is prescribed CPAP, but has been noncompliant with it for years. Sleep is chronically poor and this is likely contributing to depression. She is aware that she needs to resume, and reports having an appointment with a sleep physician at [facility] next month. 01/07 - Reviewed recommendations from hospitalist team - Hospitalists have coordinated with respiratory to begin CPAP this evening - Pt placed on MNPR as per protocol for oxygen, per protocol she will also require 1:1 over night - Keep sleep medicine appointment next month for review 01/08 -The patient was unable to tolerate a CPAP last night and after a brief trial insisted on not wearing it. Subsequent to that, the patient was very anxious and had difficulty falling back to sleep. She is told us that she will refuse to wear her CPAP machine and is unwilling to consider alternative treatments at this time. CPAP was discontinued. (6) Kidney mass: Follow-up with urologist as recommended Risk Factors Assessment Male: No : Yes Do You Have Access To A Gun?: No Health Problems: Yes Mental Health Diagnoses: Yes Substance Use Disorders: No Previous Attempt: Yes Family History of Suicide: No Previous Psychiatric Hospitalization: No Hopelessness: Yes Smoker: No Protective Factors Assessment Restoration Beliefs: Yes : No Responsible for Young Children: No Employed: No Stable Relationships: Yes Supportive Family: No Good Rapport with Provider: No Interval History Identifying Information HAILEY MATHIS is a 63-year-old F who currently lives alone in [place], has a history of depression, and was admitted on 01/04/19 21:31 on a 201 voluntary commitment for worsening depression and suicidal ideation. Chief Complaint "I feel angry". Review of Systems Notes Denies chest pain, chest tightness, headache Sleep Information Total Hours of Sleep: 7 Sleep Comments: pt on q-15 minute checks Meal Information Percent Meal Consumed - Breakfast: 50 Percent Meal Consumed - Lunch: 50 Percent Meal Consumed - Dinner: 50 Subjective Subjective Patient was seen & assessed and interval progress reviewed with treatment team. Patient was started on Lamictal titration and low-dose Prozac yesterday by Dr. Vance who perceived diagnostic criteria for true underlying bipolar diathesis not readily apparent. Blood pressure remains elevated this morning. Was seen by hospitalist yesterday and started on calcium channel steve. Patient is asymptomatic regarding her hypertension this morning and becomes irritable in discussing additional treatment for blood pressure elevation and expresses a belief that the "bureaucracy" is the reason why we want to treat her blood pres sure to essentially sell more medication. She denies paranoia at baseline. She woke feeling irritable this morning and indicates that this is a new feeling for her. This feeling preceded her first dose of Prozac. So far today she denies suicidal ideation but acknowledges that she felt such yesterday. Physical Exam Psychiatric Orientation: alert and oriented x 3 Apperance: appropriately dressed and appropriately groomed Eye Contact: + fair eye contact Motor Behavior: + tremor; no psychomotor agitation Speech: no pressured speech Affect: + irritable affect Mood: + irritable mood Thought Process: + concrete thought process Cannot rule out paranoia Suicidal Thoughts: denies suicidal thoughts (Denies SI this morning. Acknowledges suicidal thoughts as recently as yesterday evening) Homicidal Thoughts: denies homicidal thoughts Hallucinations: no auditory hallucinations and no visual hallucinations Cognition: recent memory grossly intact Insight: + limited insight Judgement: + limited judgement Vital Signs (Past 24 Hours) Last Vital Signs Temp 36.4 C L 01/09/19 06:47 Pulse 91 H 01/09/19 09:12 Resp 20 01/09/19 06:47 BP 161/112 H 01/09/19 09:12 Pulse Ox 97 01/07/19 23:18 Results & Data Current Inpatient Medications Current Inpatient Medications: Current Inpatient Medications Acetaminophen (Tylenol) 650 mg PO Q4H PRN PRN Reason: Headache or Minor Fever Stop: 02/03/19 22:42 Last Admin: 01/08/19 20:28 Dose: 650 mg Documented by: Al Hydrox/Mg Hydrox/Simethicone (Maalox) 30 ml PO Q4H PRN PRN Reason: GI Upset Stop: 02/03/19 22:42 Bismuth Subsalicylate (Kaopectate) 15 ml PO PRN PRN PRN Reason: Loose Stool Stop: 02/03/19 22:42 Fluoxetine HCl (Prozac) 10 mg PO QAM LUPE Stop: 02/08/19 08:59 Last Admin: 01/09/19 09:17 Dose: 10 mg Documented by: Hydroxyzine HCl (Vistaril) 50 mg PO HSZ PRN PRN Reason: Insomnia Stop: 02/03/19 22:42 Last Admin: 01/08/19 00:56 Dose: 50 mg Documented by: Hydroxyzine HCl (Vistaril) 25 mg PO Q4H PRN PRN Reason: Anxiety Stop: 02/03/19 22:42 Last Admin: 01/08/19 17:36 Dose: 25 mg Documented by: Lamotrigine (Lamictal) 25 mg PO HS LUPE Stop: 02/07/19 21:59 Last Admin: 01/08/19 21:47 Dose: 25 mg Documented by: Losartan Potassium (Cozaar) 100 mg PO QAM [facility] Stop: 02/05/19 08:59 Last Admin: 01/09/19 09:16 Dose: 100 mg Documented by: Magnesium Hydroxide (Milk Of Magnesia) 30 ml PO DAILY PRN PRN Reason: Constipation Stop: 02/03/19 22:42 Propranolol HCl (Inderal La) 60 mg PO QAM LUPE Stop: 02/08/19 08:59 Last Admin: 01/09/19 09:32 Dose: 60 mg Documented by: Sodium Chloride ([place] Nasal) 1 - 2 sprays NA PRN PRN PRN Reason: Nasal Dryness/Congestion Stop: 02/03/19 22:42 Mental Health & Subst Abuse Tx Psychiatrist Name of Psychiatrist: Dawna Choi [facility] Psychiatrist's Date of Appointment with Psychiatrist: 01/26/19 Time of Appointment with Psychiatrist: 1pm Psychiatric Appointment Comment: [address] [place] [address] Therapist Name of Therapist: Sera Munoz [facility], [facility] Therapist's Phone Number: [phone] Date of Therapist Appointment: 01/15/19 Time of Therapist Appointment: 1pm Therapy Appointment Comment: [address] [place] [address] National Sales Trainer Name of National Sales Trainer: Denies/None Post Discharge Appointments Primary Care Physician Name Of Family Doctor: [facility] Date of Appointment with PCP: 01/20/19 Time of Appointment with PCP: 10:30 a.m. Provider Appointment Comment: [address] [facility] Specialist Name of Specialist: [facility] - Dr. Chung Date of Appointment with Specialist: 01/20/19 Time of Appointment with Specialist: 4:10 p.m. Specialty Appointment Comment: [address] [facility] Contact Information Discharge Discharge Address: [address] [place] [id number] (1) Hypertension Hypertension type: essential hypertension Qualified Code(s): I10 - Essential (primary) hypertension
--- NOTE | 2019-01-09 12:39 | Hospitalist Progress Note ---
Date of Service January 09, 2019 Assessment & Plan (1) Suicidal ideation: * As per psych team (2) Hypertension: * Pt's BPs were much more elevated on admission in the 170s-180s and she has had readings that were WNL in the last 24 hours. * Utox, CBC, PRP, TSH WNL on admission * BP did bump into the 150s-160 systolic 01/05 and patient was given dose of clonidine which dropped BP to 110s systolic and patient symptomatic with lightheadedness. * Outpatient BPs stable over past few months (most recent 132/90 on 12/24). * D/C clonidine, Norvasc * Patient states she did have difficult time as outpatient with various generic versions of losartan and fillers * Continue home losartan 100mg * Start Propranolol 60mg QAM with hopes of better htn, bp, anxiety control * BP 164/94 this morning, with repeat values 170-180s/90-110s-- after patient received dose of propranolol, repeat BP now at 152/87- will repeat this afternoon, as patient with increased anxiety and recent medication changes, HTN multi-factorial * Continue to monitor (3) MICHELLE (obstructive sleep apnea): * Per patient, however she has not used her CPAP at home for some time- she states she has appt with Dr. Solomon within the next month to re-evaluate and possibly change her settings (she is unaware of what they were)- pt has nasal pillos and machine at home but no tubing at this time * May benefit from CPAP overnight for most restful sleep, however patient unable to tolerate CPAP last night * Will need to follow-up with Dr. 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 Colonic diverticulosis without evidence for acute diverticulitis. 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 Cirrhosis with small varices and mild splenomegaly which favor portal hypertension. * Previously following with Dr. Hooper as outpatient, but patient states she has not been back since they suggestive biopsy -- patient advised for follow-up given most recent imaging and no treatment at this time- patient to think about follow-up and will be set up with Dr. Hooper as outpatient if agreeable . (5) Prediabetes: * A1c 5.9 on 12/24 - previously 6.5 * No current medications * Continue to monitor as outpatient (6) Sarcoidosis of lung: * Per history- no current medications (7) Abnormal finding on urinalysis: * UA from admission + for leuk est, neg nitrites * Culture prelim- <1000 bacteria * As patient asymptomatic currently- hold off tx for now, unless symptoms change or culture results change (8) Morbid obesity with BMI of 40.0-44.9, adult: (9) DVT prophylaxis: * As per psych team Supervising Physician Co-Signing Physician Notes PA Supervision Note: I did not personally see or examine the patient today, but I verified all glass points of ALPHONSO Ortiz's assessment and plan with the following exceptions/additions: None Subjective Patient evaluated this morning. She states she has had some increased anxiety and frustrations regarding recent changes to her medications, but she did agree to take the propranolol. She states she has had some tension up the back of her neck and has had some blurry vision intermittently, however she denies any at this time. She denies any shortness of breath, fevers, chills, cough, nausea, vomiting, or constipation at this time. She does have intermittent abdominal pain, and states that she has had these issues ongoing with her cirrhosis. She continues to defer wanting to follow up with Dr. Hooper as an outpatient at this time, but is willing to readdress this prior to discharge. She also would like tubing for her cpap at home and states she believes she already has the nasal pillows. Review of Systems Constitutional: + daytime sleepiness; no fever and no chills Eyes: occasional blurred vision Ear, Nose, Mouth, Throat: no ear pain and no tinnitus Respiratory: no cough and no dyspnea Cardiovascular: no chest pain and no edema Gastrointestinal: + abdominal pain (chronic, unchanged); no nausea and no vomiting Genitourinary: no dysuria and no urinary frequency Neurologic: + headache(s) Psychiatric: + depression, + irritability and + anxiety Physical Exam Physical Exam: Constitutional WD/WN, vitals as above Eyes PERRL, conjunctivae normal, anicteric sclerae Neck trachea midline, no thyromegaly Respiratory normal respiratory effort, lungs clear to auscultation Cardiovascular RRR, no murmur, no edema Gastrointestinal (Abdomen) normal bowel sounds, soft, nontender. edge of liver palpable, without nodularity Musculoskeletal Head/Neck/Chest: + head abnormal to inspection, normocephalic and head atraumatic Neurologic PERRL, EOMI, accommodation nl, no face palsy, no dysarthria Psychiatric Orientation: alert and oriented x 3 Affect: + labile affect Mood: + depressed mood and + anxious mood Results & Data Vital Signs (Past 12 Hours) Vital Signs Temp Pulse Resp BP 01/09/19 11:15 91 H 152/87 H 01/09/19 09:12 91 H 161/112 H 01/09/19 06:48 78 171/112 H 01/09/19 06:47 36.4 C L 86 20 180/95 H PG Care Time/CCT Total # of Minutes Spent Total Time Spent with Patient: Total time spent is greater than 50% in coordination of care (as documented) at patient's floor/unit and/or counseling patient: >40 minutes spent at patient's bedside counseling her on diagnosis, treatment options, and follow-up (1) Hypertension Hypertension type: essential hypertension Qualified Code(s): I10 - Essential (primary) hypertension
[2019-01-09] MEDS ORDERED: cloNIDine HCl 0.1 MG TAB PO PRN (16:16)
[2019-01-09] MEDS: lamoTRIgine 25 MG TAB PO SCH (20:39)
[2019-01-10] MEDS: ACETAMINOPHEN 325 MG TAB PO PRN ×2 (02:04→20:58)
[2019-01-10 07:35] LABS: Hematocrit (blood only) 44.5 % (37-47); Mean Corpuscular Hemoglobin 29.5 pg (25-34); Mean Corpuscular Hgb Conc 33.7 g/dL (32-36); Mean Corpuscular Volume 87.4 fL (80-100); Mean Platelet Volume 9.8 fL (7.4-10.4); Platelet Count 168 K/uL (130-400); RDW Coefficient of Variation 13.4 % (11.5-14.5); RDW Standard Deviation 42.9 fL (36.4-46.3); Red Blood Count 5.09 M/uL (4.2-5.4); White Blood Count 7.44 K/uL (4.8-10.8)
[2019-01-10 08:00] LABS: Albumin Level 3.5 gm/dl (3.4-5.0); BUN Creatinine Ratio 24.1 (10-20); Calcium 9.3 mg/dl (8.5-10.1); Creatinine Clr Calc Pharmacy 65.7 ml/min; Est GFR (African American) 72.8; Est GFR (Non-African American) 62.9; Potassium 4.8 mmol/L (3.5-5.1)
[2019-01-10 08:03] LABS: Albumin Globulin Ratio 1.2 (0.9-2); Bilirubin,Total 0.6 mg/dl (0.2-1); Total Protein 6.5 gm/dl (6.4-8.2)
[2019-01-10] MEDS: FLUOXETINE HCL 10 MG CAP PO SCH (08:50)
[2019-01-10] MEDS: LOSARTAN POTASSIUM 25 MG TAB PO SCH (08:50)
[2019-01-10] MEDS ORDERED: PROPRANOLOL HCL LA 80 MG CAPCR PO SCH (09:00)
--- NOTE | 2019-01-10 11:47 | Hospitalist Progress Note ---
Date of Service January 10, 2019 Assessment & Plan (1) Suicidal ideation: * As per psych team (2) Hypertension: * Pt's BPs were much more elevated on admission in the 170s-180s and she has had readings that were WNL in the last 24 hours. * Utox, CBC, PRP, TSH WNL on admission * BP did bump into the 150s-160 systolic 01/05 and patient was given dose of clonidine which dropped BP to 110s systolic and patient symptomatic with lightheadedness. * Outpatient BPs stable over past few months (most recent 132/90 on 12/24). * D/C clonidine, Norvasc -- patient with prn clonidine per psych team- may be contributing to rebound HTN * Patient states she did have difficult time as outpatient with various generic versions of losartan and fillers * Continue home losartan 100mg * Propranolol was increased to 80mg today, however patient states she is feeling extremely fatigues. BP today 137/88. Will continue with 60mg moving forward. If patient not receiving clonidine moving forward, may titrate propranolol back up. * CBC, CMP today without sign of infection or electrolyte abnormality * Continue to monitor (3) MICHELLE (obstructive sleep apnea): * Per patient, however she has not used her CPAP at home for some time- she states she has appt with Dr. Solomon within the next month to re-evaluate and possibly change her settings (she is unaware of what they were)- pt has nasal pillows and machine at home but no tubing at this time * May benefit from CPAP overnight for most restful sleep, however patient unable to tolerate CPAP -- will hold off at this time * Will need to follow-up with Dr. 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 Colonic diverticulosis without evidence for acute diverticulitis. Noted 2.2 cm fat- containing right renal mass consistent with angiomyolipoma, benign lesion. Cirrhosis with small varices and mild splenomegaly which favor portal hypertension. * Previously following with Dr. Hooper as outpatient, but patient states she has not been back since they suggestive biopsy -- patient advised for follow-up given most recent imaging and no treatment at this time- patient to think about follow-up and will be set up with Dr. Hooper as outpatient -- she would like appointment for March 2019 to give her time to think about it in be tween. * Propranolol for portal hypertension . (5) Prediabetes: * A1c 5.9 on 12/24 - previously 6.5 * No current medications * Continue to monitor as outpatient (6) Sarcoidosis of lung: * Per history- no current medications (7) Abnormal finding on urinalysis: * UA from admission + for leuk est, neg nitrites * Culture prelim- <1000 bacteria * As patient asymptomatic currently- hold off tx for now, unless symptoms change or culture results change (8) Morbid obesity with BMI of 40.0-44.9, adult: (9) DVT prophylaxis: * As per psych team Medicine to sign off as blood pressure is under better control. Please call for any questions/concerns Supervising Physician Co-Signing Physician Notes PA Supervision Note: I did not personally see or examine the patient today, but I verified all glass points of ALPHONSO Ortiz's assessment and plan with the following exceptions/additions: None Subjective Patient evaluated this morning. She states she had difficulty again with sleep last night and required vistaril. She states she felt better the day before after sleeping well, but last night has caused her to feel a "not herself". She states she doesn't have a sleep hygiene ritual but states she had tried ready- calm as an outpatient and thought it was helpful. She states she is frustrated with continued recommendations to switch medications around with regards. She states she was offered prazosin for sleep but doesn't want to take anything additional. She does state she has some shoulder and neck pain and helped pull a friend up several weeks ago. She has been to the chiropractor in the past with relief but is unsure if she would like to go see anyone for this at this time. Review of Systems Constitutional: + daytime sleepiness; no fever and no chills Gastrointestinal: + abdominal pain (chronic, unchanged); no nausea and no vomiting Neurologic: + headache(s) Psychiatric: + depression, + irritability and + anxiety Physical Exam Constitutional: WD/WN, vitals as above Eyes: PERRL, conjunctivae normal, anicteric sclerae ENMT: external ear and nose normal, oropharynx normal Neck: trachea midline, no thyromegaly Respiratory: normal respiratory effort, lungs clear to auscultation Cardiovascular: RRR, no murmur, no edema Gastrointestinal (Abdomen): Inspection/Auscultation: abdomen normal to inspection; abdomen not distended Percussion/Palpation: abdomen soft; abdomen nontender, no guarding and abdomen not rigid Musculoskeletal: Head/Neck/Chest: normocephalic and head atraumatic Skin: no rashes, warm and dry Neurologic: PERRL, EOMI, accommodation nl, no face palsy, no dysarthria Psychiatric: Orientation: alert and oriented x 3 Affect: + labile affect Mood: + depressed mood and + anxious mood Results & Data Vital Signs (Past 12 Hours) Vital Signs Temp Pulse Resp BP 01/10/19 06:43 36.5 C 70 20 132/88 Laboratory Results 01/10/19 01/10/19 Range/Units 07:17 07:17 WBC 7.44 (4.8-10.8) K/uL RBC 5.09 (4.2-5.4) M/uL Hgb 15.0 (12.0-16.0) g/dL Hct 44.5 (37-47) % MCV 87.4 (80-100) fL MCH 29.5 (25-34) pg MCHC 33.7 (32-36) g/dL RDW Std Deviation 42.9 (36.4-46.3) fL RDW Coeff of Ne 13.4 (11.5-14.5) % Plt Count 168 (130-400) K/uL MPV 9.8 (7.4-10.4) fL Sodium 139 (136-145) mmol/L Potassium 4.8 (3.5-5.1) mmol/L Chloride 105 (98-107) mmol/L Carbon Dioxide 32 (21-32) mmol/L Anion Gap 2.0 L (3-11) BUN 23 H (7-18) mg/dl Creatinine 0.95 (0.6-1.2) mg/dl Est Cr Clr Drug Dosing 65.7 ml/min Est GFR ( Amer) 72.8 Est GFR (Non-Af Amer) 62.9 BUN/Creatinine Ratio 24.1 H (10-20) Glucose 93 (70-99) mg/dl Calcium 9.3 (8.5-10.1) mg/dl Total Bilirubin 0.6 (0.2-1) mg/dl AST 13 L (15-37) U/L ALT 25 (12-78) U/L Alkaline Phosphatase 69 (45-117) U/L Total Protein 6.5 (6.4-8.2) gm/dl Albumin 3.5 (3.4-5.0) gm/dl Globulin 3.0 (2.5-4.0) gm/dl Albumin/Globulin Ratio 1.2 (0.9-2) PG Care Time/CCT Total # of Minutes Spent Total Time Spent with Patient: Total time spent is greater than 50% in coordination of care (as documented) at patient's floor/unit and/or counseling patient: (1) Hypertension Hypertension type: essential hypertension Qualified Code(s): I10 - Essential (primary) hypertension
--- NOTE | 2019-01-10 15:32 | Psychiatric Progress Note ---
Date of Service January 10, 2019 Impression / Recommendations Impression 63-year-old single female with a history of bipolar 2, generalized anxiety disorder, and multiple medical problems who presents with worsening mood and suicidal ideation in the context of noncompliance with mental health treatment, including medications and therapy, as well as worsening medical conditions and increased social isolation. She did well and was stable on low-dose duloxetine for years, and agrees to resume it while monitoring closely for impact to liver and mood destabilization. She has never taken a mood stabilizer, but reportedly had manic symptoms with an SSRI in the past, so close monitoring is indicated. She would also benefit from getting back into therapy, working on coping strategies for dealing with her multiple health issues, which she reports are overwhelming. Inpatient treatment is medically necessary due to the risk of suicide if discharged. (1) Suicidal ideation: Q 15 min checks for safety Work on healthy coping skills and discharge safety plan. 01/06 - Pt denies SI today, but admits to inability to contract for safety outside of the hospital setting 01/07 - Pt endorses SI this morning, with consideration to "drown myself or stab myself" - Is not able to contract for safety and admits, "I'm at my wit's end" 01/08 -The patient continues to describe feeling hopeless and helpless. She acknowledges ongoing thoughts of suicide, including thoughts of stabbing herself and drowning herself,as well as deliberately driving her car at full speed into a stationary object such as a tree. -She is unable to contract for safety in the community. She does tell us that she does not have any current thoughts of physically harming herself in the hospital, although she also says that she cannot guarantee that such thoughts will emerge. She does, however, promised that she will let us know if such thoughts developed during the hospital stay and prior to actually acting on them. 01/09/2019 -Patient appears more irritable today but denying active suicidal ideation this morning which she attributes to improved sleep last night. Remains at elevated risk if discharged prematurely 01/10/2019 -Less irritable, more calm and pleasant today. Denying suicidal ideation today (2) Bipolar II disorder: 01/05 - Reviewed OP records from [facility], diagnosed bipolar II and h/o manic symptoms on citalopram, but did the best on duloxetine 30mg daily (stable for years, and helped chronic pain). Reviewed risks, benefits and side effects and patient agreed to resume. Also discussed lurasidone (states she can't afford it), as well as lamotrigine. - Consider addition of mood stabilizer (lamotrigine?) - Collateral information from friends/supports, family meeting if indicated. - Refer for OP treatment. - Encourage group attendance and participation. 01/06 - Continue duloxetine 20mg daily - Reviewed recommendation to trial lamotrigine as mood stabilization agent, given it is a weight neutral and rather inexpensive option - Pt requesting information and was provided with an UpToDate patient handout, asking to discuss again tomorrow - Encourage group participation - Continue to arrange aftercare 01/07 -The diagnosis of bipolar disorder was evidently based on the opinion of her previous outpatient provider, individual who is quite familiar with the patient and her illness. Although the patient does not independently provide a clear history consistent with the diagnoses of ramona or hypomania, what is quite clear is that she has a long-standing history of difficulty regulating her mood, particularly when issues of abandonment may arise. -For the above reason we have begun the patient on lamotrigine 25 mg daily, and will titrate this dose on a semilunar basis, as indicated and tolerated. Material risks of lamotrigine, including but not limited to's sedation and Coleman-Tenzin syndrome were reviewed with the patient by Dr. Vance. She asked a number of questions, and approached several staff members for additional information. Following formal review with Dr. Vance today she agreed to begin lamotrigine. -The patient's primary mood symptom appears to be depression, and with the addition of a mood stabilizing agent we plan to pursue antidepressant treatment. Because of the possible negative placebo effect now associated with duloxetine and the patient reports that this medication has been causing her to be "more depressed" and more suicidal, we recommended fluoxetine 10 mg daily, to be titrated as indicated. We feel that the choice of fluoxetine has the advantage of being a long-acting antidepressant medication that may allow the patient to intentionally or intermittently "skip" dosages without significant negative therapeutic disadvantage. Also, we are struck by the obsessive nature of the patient's approach to all decisions ("analysis paralysis") and, hopefully, at a standard dose of fluoxetine may assist the patient her obsessive thinking. Material risks and anticipated benefits of fluoxetine were reviewed with the patient and after asking a number of questions and after asking us to please start at a low dose, the patient indicated understanding and agreement. 01.07 - Continue current treatment regimen - reviewed again recommendation to initiate lamotrigine, patient presents as anxiety and overwhelmed with decision, but is not able today to consent to initiation of medication - She questions desire to continue duloxetine, but has difficulty tolerating conversation about recommended treatment due to level of anxiety - Current recommendation is to add lamotrigine to current dosage of duloxetine - patient considering sertraline or paroxetine should she desire to change antidepressant medications - Pt has historically responded best to medication recommendations not feeling pressured, but likely requires clear and simple recommendations at this time given severity of anxiety 01/09/2019 -Patient was started on Lamictal and Prozac yesterday. More irritable this morning, possibly associated with discontinuation of duloxetine as irritability preceded Prozac first dose and felt unlikely medication side effect sister with Lamictal last evening. In setting of irritability, I feel Prozac might not be the best option for her as it can be problematically activating and the half- life is very long such that it can be difficult to stop quickly if necessary. I suggested we consider something a little more calming, such as buspirone, however she appeared overwhelmed by all the medication changes and refused but agreed to consider another change tomorrow 01/10/2019 -Reviewed importance of regular sleep for mood stability. Suggested we trial prazosin at a low dose which may help sleep onset due to sedating nature but no additional risk for sleep apnea and may help with her hypertension as well. She agreed to consider it but was not ready to commit to a new medication trial (3) Anxiety: TAL - resume SNRI, engage in therapy, work on healthy coping skills. 01/07 - Continue to utilize hydroxyzine prn for acute anxiety - Encourage development of healthy coping strategies, encourage participation in group programming 01/09/2019 -More irritable this morning. Considering BuSpar trial. Recommended she utilize the hydroxyzine as needed throughout the day 01/10/2019 -Continue hydroxyzine as needed for insomnia (4) Hypertension: 01/05 - Poorly controlled, resume home dose of Cozaar and monitor. Will n eed f/u with PCP 01/06 - Hospitalist consultation requested; appreciate recommendations - Suggested continuation of home dose of losartan 100mg, as HTN is felt to be related to anxiety - Given reported lightheadedness after receiving prn clonidine, it was suggested to reduce dose to 0.05mg prn - and utilize for systolic BP >160 01/07 - Continue as above - Recommendations for treatment of sleep apnea as below 01/08 -Begin Prozac 10 mg a day and titrate as indicated. The patient has been advised this medication may be expected to assist with anxiety. 01/09/2019 -We appreciate input from medical service. Per medical progress note 01/08/2019 clonidine prn discontinued by hospitalist and low-dose amlodipine initiated, however it appears the amlodipine was discontinued and propranolol LA 60 mg daily started instead. -Reviewed risks of uncontrolled hypertension with patient today. She demonstrated an illogical belief that medication recommendations are being, at least in part, driven by "bureaucracy" which likely impacts her willingness to comply with treatment recommendations 01/10/2019 Blood pressure improved this morning. Appreciate hospitalist follow-up. Propranolol increased to 80 mg daily this morning. She did receive a clonidine pr dose for blood pressure elevation yesterday. Hopefully the clonidine will soon no longer be needed with titration of the beta-steve. (5) Sleep apnea: 01/05 -patient reports diagnosis of obstructive sleep apnea and is prescribed CPAP, but has been noncompliant with it for years. Sleep is chronically poor and this is likely contributing to depression. She is aware that she needs to resume, and reports having an appointment with a sleep physician at [facility] physician group next month. 01/07 - Reviewed recommendations from hospitalist team - Hospitalists have coordinated with respiratory to begin CPAP this evening - Pt placed on MNPR as per protocol for oxygen, per protocol she will also require 1:1 over night - Keep sleep medicine appointment next month for review 01/08 -The patient was unable to tolerate a CPAP last night and after a brief trial insisted on not wearing it. Subsequent to that, the patient was very anxious and had difficulty falling back to sleep. She is told us that she will refuse to wear her CPAP machine and is unwilling to consider alternative treatments at this time. CPAP was discontinued. (6) Kidney mass: Follow-up with urologist as recommended Risk Factors Assessment Male: No : Yes Do You Have Access To A Gun?: No Health Problems: Yes Mental Health Diagnoses: Yes Substance Use Disorders: No Previous Attempt: Yes Family History of Suicide: No Previous Psychiatric Hospitalization: No Hopelessness: Yes Smoker: No Protective Factors Assessment Holiness Beliefs: Yes : No Responsible for Young Children: No Employed: No Stable Relationships: Yes Supportive Family: No Good Rapport with Provider: No Interval History Identifying Information HAILEY MATHIS is a 63-year-old F who currently lives alone in [place], has a history of depression, and was admitted on 01/04/19 21:31 on a 201 voluntary commitment for worsening depression and suicidal ideation. Chief Complaint "Medicine is overwhelming but I am trying to see the positive". Review of Systems Notes Sleep latency improved but unresolved. Denies headache Sleep Information Total Hours of Sleep: 6 Sleep Comments: pt on q-15 minute checks Meal Information Percent Meal Consumed - Breakfast: 90 Percent Meal Consumed - Lunch: 100 Percent Meal Consumed - Dinner: 60 Subjective Subjective Patient was seen & assessed and interval progress reviewed with treatment team. Per staff patient is denying ongoing suicidality and endorsing improvement in anxiety. Also endeavoring to see the positive aspect of of her medications but continues to resent need for them. She slept better with Vistaril x2 last evening. Interestingly staff perceived she seemed to do better with the light on last evening however she denies that this had any impact on her sleep today. She acknowledges difficulty sleeping now for several weeks but is very hesitant to consider additional treatment options targeting that specifically. Reviewed sleep apnea but not yet able to tolerate CPAP. She endorses some improvement in her mood and she is notably less irritable this morning. In fact she even smiles and laughs at times. She expresses hopefulness that the Prozac will help her with her "obsessive thoughts." Physical Exam Psychiatric Orientation: cooperative Apperance: + disheveled Eye Contact: + fair eye contact Motor Behavior: no abnormal motor movements Speech: normal rate/rhythm/volume of speech Affect: no angry affect A little better She remains perseverative about medications Suicidal Thoughts: denies suicidal thoughts Homicidal Thoughts: denies homicidal thoughts Hallucinations: no auditory hallucinations and no visual hallucinations Cognition: + attention not intact Insight: + limited insight Judgement: + limited judgement Vital Signs (Past 24 Hours) Last Vital Signs Temp 36.5 C 01/10/19 06:43 Pulse 70 01/10/19 14:37 Resp 18 01/10/19 14:37 BP 145/83 H 01/10/19 14:37 Pulse Ox 97 01/07/19 23:18 Results & Data Laboratory Results Laboratory Results - last 24 hr 01/10/19 01/10/19 07:17 07:17 WBC 7.44 RBC 5.09 Hgb 15.0 Hct 44.5 MCV 87.4 MCH 29.5 MCHC 33.7 RDW Std Deviation 42.9 RDW Coeff of Ne 13.4 Plt Count 168 MPV 9.8 Sodium 139 Potassium 4.8 Chloride 105 Carbon Dioxide 32 Anion Gap 2.0 L BUN 23 H Creatinine 0.95 Est Cr Clr Drug Dosing 65.7 Est GFR ( Amer) 72.8 Est GFR (Non-Af Amer) 62.9 BUN/Creatinine Ratio 24.1 H Glucose 93 Calcium 9.3 Total Bilirubin 0.6 AST 13 L ALT 25 Alkaline Phosphatase 69 Total Protein 6.5 Albumin 3.5 Globulin 3.0 Albumin/Globulin Ratio 1.2 Current Inpatient Medications Current Inpatient Medications: Current Inpatient Medications Acetaminophen (Tylenol) 650 mg PO Q4H PRN PRN Reason: Headache or Minor Fever Stop: 02/03/19 22:42 Last Admin: 01/10/19 02:04 Dose: 650 mg Documented by: Al Hydrox/Mg Hydrox/Simethicone (Maalox) 30 ml PO Q4H PRN PRN Reason: GI Upset Stop: 02/03/19 22:42 Bismuth Subsalicylate (Kaopectate) 15 ml PO PRN PRN PRN Reason: Loose Stool Stop: 02/03/19 22:42 Clonidine HCl (Catapres) 0.05 mg PO Q4H PRN PRN Reason: Hypertension Stop: 02/08/19 16:15 Last Admin: 01/09/19 16:42 Dose: 0.05 mg Documented by: Fluoxetine HCl (Prozac) 10 mg PO QAM LUPE Stop: 02/08/19 08:59 Last Admin: 01/10/19 08:50 Dose: 10 mg Documented by: Hydroxyzine HCl (Vistaril) 50 mg PO HSZ PRN PRN Reason: Insomnia Stop: 02/03/19 22:42 Last Admin: 01/10/19 00:43 Dose: 50 mg Documented by: Hydroxyzine HCl (Vistaril) 25 mg PO Q4H PRN PRN Reason: Anxiety Stop: 02/03/19 22:42 Last Admin: 01/08/19 17:36 Dose: 25 mg Documented by: Lamotrigine (Lamictal) 25 mg PO HS LUPE Stop: 02/07/19 21:59 Last Admin: 01/09/19 20:39 Dose: 25 mg Documented by: Losartan Potassium (Cozaar) 100 mg PO QAM LUPE Stop: 02/05/19 08:59 Last Admin: 01/10/19 08:50 Dose: 100 mg Documented by: Magnesium Hydroxide (Milk Of Magnesia) 30 ml PO DAILY PRN PRN Reason: Constipation Stop: 02/03/19 22:42 Propranolol HCl (Inderal La) 60 mg PO QAM LUPE Stop: 02/10/19 08:59 Sodium Chloride (Major Nasal) 1 - 2 sprays NA PRN PRN PRN Reason: Nasal Dryness/Congestion Stop: 02/03/19 22:42 Mental Health & Subst Abuse Tx Psychiatrist Name of Psychiatrist: Dawna Choi [facility] Psychiatrist's Date of Appointment with Psychiatrist: 01/26/19 Time of Appointment with Psychiatrist: 1:00 p.m. Psychiatric Appointment Comment: [id number] [place] [address] Therapist Name of Therapist: Sera Munoz [facility] Therapist's Phone Number: [phone] Date of Therapist Appointment: 01/15/19 Time of Therapist Appointment: 1pm Therapy Appointment Comment: [address] [facility] [id number] Clinical Neuropsychologist Name of Clinical Neuropsychologist: Denies/None Post Discharge Appointments Primary Care Physician Name Of Family Doctor: [facility] Date of Appointment with PCP: 01/20/19 Time of Appointment with PCP: 10:30 a.m. Provider Appointment Comment: [phone] [facility] Specialist Name of Specialist: [facility] - Dr. Chung Phone Number for Specialist: [phone] Date of Appointment with Specialist: 01/20/19 Time of Appointment with Specialist: 4:10 p.m. Specialty Appointment Comment: [phone] [facility] Contact Information Discharge Discharge Address: [address] [place] [id number] (1) Hypertension Hypertension type: essential hypertension Qualified Code(s): I10 - Essential (primary) hypertension
[2019-01-10] MEDS: lamoTRIgine 25 MG TAB PO SCH (20:58)
[2019-01-11] MEDS: PROPRANOLOL HCL 60 MG LA CAP PO SCH (09:08)
[2019-01-11] MEDS: LOSARTAN POTASSIUM 25 MG TAB PO SCH (09:09)
[2019-01-11] MEDS: FLUOXETINE HCL 10 MG CAP PO SCH (09:09)
--- NOTE | 2019-01-11 11:07 | Psychiatric Progress Note ---
Date of Service January 11, 2019 Impression / Recommendations Impression 63-year-old single female with a history of bipolar 2, generalized anxiety disorder, and multiple medical problems who presents with worsening mood and suicidal ideation in the context of noncompliance with mental health treatment, including medications and therapy, as well as worsening medical conditions and increased social isolation. She did well and was stable on low-dose duloxetine for years, and agrees to resume it while monitoring closely for impact to liver and mood destabilization. She has never taken a mood stabilizer, but reportedly had manic symptoms with an SSRI in the past, so close monitoring is indicated. She was agreeable with initiation of fluoxetine and lamotrigine to target mood concerns. Patient continues to get overwhelmed with simple medication discussions, making adjustments to her medication regimen more prolonged than expected. Consideration to trial prazosin was mentioned; however, patient remains too anxious to agreed to additional medication changes today. She would also benefit from getting back into therapy, working on coping strategies for dealing with her multiple health issues, which she reports are overwhelming. Inpatient treatment is medically necessary due to the risk of suicide if discharged. (1) Suicidal ideation: Q 15 min checks for safety Work on healthy coping skills and discharge safety plan. 01/06 - Pt denies SI today, but admits to inability to contract for safety outside of the hospital setting 01/07 - Pt endorses SI this morning, with consideration to "drown myself or stab myself" - Is not able to contract for safety and admits, "I'm at my wit's end" 01/08 -The patient continues to describe feeling hopeless and helpless. She acknowledges ongoing thoughts of suicide, including thoughts of stabbing herself and drowning herself,as well as deliberately driving her car at full speed into a stationary object such as a tree. -She is unable to contract for safety in the community. She does tell us that she does not have any current thoughts of physically harming herself in the hospital, although she also says that she cannot guarantee that such thoughts will emerge. She does, however, promised that she will let us know if such thoughts developed during the hospital stay and prior to actually acting on them. 01/09/2019 -Patient appears more irritable today but denying active suicidal ideation this morning which she attributes to improved sleep last night. Remains at elevated risk if discharged prematurely 01/10/2019 -Less irritable, more calm and pleasant today. Denying suicidal ideation today 01/11 - Pt is not able to convincingly deny SI today - stating "I'm afraid, I'm afraid of myself." - When asked if she is suicidal, she reported "I can't really say, I'm not sure." (2) Bipolar II disorder: 01/05 - Reviewed OP records from [facility], diagnosed bipolar II and h/o manic symptoms on citalopram, but did the best on duloxetine 30mg daily (stable for years, and helped chronic pain). Reviewed risks, benefits and side effects and patient agreed to resume. Also discussed lurasidone (states she can't afford it), as well as lamotrigine. - Consider addition of mood stabilizer (lamotrigine?) - Collateral information from friends/supports, family meeting if indicated. - Refer for OP treatment. - Encourage group attendance and participation. 01/06 - Continue duloxetine 20mg daily - Reviewed recommendation to trial lamotrigine as mood stabilization agent, given it is a weight neutral and rather inexpensive option - Pt requesting information and was provided with an UpToDate patient handout, asking to discuss again tomorrow - Encourage group participation - Continue to arrange aftercare 01/07 -The diagnosis of bipolar disorder was evidently based on the opinion of her previous outpatient provider, individual who is quite familiar with the patient and her illness. Although the patient does not independently provide a clear history consistent with the diagnoses of ramona or hypomania, what is quite clear is that she has a long-standing history of difficulty regulating her mood, particularly when issues of abandonment may arise. -For the above reason we have begun the patient on lamotrigine 25 mg daily, and will titrate this dose on a semilunar basis, as indicated and tolerated. Material risks of lamotrigine, including but not limited to's sedation and Coleman-Tenzin syndrome were reviewed with the patient by Dr. Vance. She asked a number of questions, and approached several staff members for additional information. Following formal review with Dr. Vance today she agreed to begin lamotrigine. -The patient's primary mood symptom appears to be depression, and with the addition of a mood stabilizing agent we plan to pursue antidepressant treatment. Because of the possible negative placebo effect now associated with duloxetine and the patient reports that this medication has been causing her to be "more depressed" and more suicidal, we recommended fluoxetine 10 mg daily, to be titrated as indicated. We feel that the choice of fluoxetine has the advantage of being a long-acting antidepressant medication that may allow the patient to intentionally or intermittently "skip" dosages without significant negative therapeutic disadvantage. Also, we are struck by the obsessive nature of the patient's approach to all decisions ("analysis paralysis") and, hopefully, at a standard dose of fluoxetine may assist the patient her obsessive thinking. Material risks and anticipated benefits of fluoxetine were reviewed with the patient and after asking a number of questions and after asking us to please start at a low dose, the patient indicated understanding and agreement. 01.07 - Continue current treatment regimen - reviewed again recommendation to initiate lamotrigine, patient presents as anxiety and overwhelmed with decision, but is not able today to consent to initiation of medication - She questions desire to continue duloxetine, but has difficulty tolerating conversation about recommended treatment due to level of anxiety - Current recommendation is to add lamotrigine to current dosage of duloxetine - patient considering sertraline or paroxetine should she desire to change antidepressant medications - Pt has historically responded best to medication recommendations not feeling pressured, but likely requires clear and simple recommendations at this time given severity of anxiety 01/09/2019 -Patient was started on Lamictal and Prozac yesterday. More irritable this morning, possibly associated with discontinuation of duloxetine as irritability preceded Prozac first dose and felt unlikely medication side effect sister with Lamictal last evening. In setting of irritability, I feel Prozac might not be the best option for her as it can be problematically activating and the half- life is very long such that it can be difficult to stop quickly if necessary. I suggested we consider something a little more calming, such as buspirone, however she appeared overwhelmed by all the medication changes and refused but agreed to consider another change tomorrow 01/10/2019 -Reviewed importance of regular sleep for mood stability. Suggested we trial prazosin at a low dose which may help sleep onset due to sedating nature but no additional risk for sleep apnea and may help with her hypertension as well. She agreed to consider it but was not ready to commit to a new medication trial 01/11 - Continue current medication regimen, revisited the idea of prazosin, but again patient was not able to commit to additional medication changes as recommended (3) Anxiety: TAL - resume SNRI, engage in therapy, work on healthy coping skills. 01/07 - Continue to utilize hydroxyzine prn for acute anxiety - Encourage development of healthy coping strategies, encourage participation in group programming 01/09/2019 -More irritable this morning. Considering BuSpar trial. Recommended she utilize the hydroxyzine as needed throughout the day 01/10/2019 -Continue hydroxyzine as needed for insomnia (4) Hypertension: 01/05 - Poorly controlled, resume home dose of Cozaar and monitor. Will need f/u with PCP 01/06 - Hospitalist consultation requested; appreciate recommendations - Suggested continuation of home dose of losartan 100mg, as HTN is felt to be related to anxiety - Given reported lightheadedness after receiving prn clonidine, it was suggested to reduce dose to 0.05mg prn - and utilize for systolic BP >160 01/07 - Continue as above - Recommendations for treatment of sleep apnea as below 01/08 -Begin Prozac 10 mg a day and titrate as indicated. The patient has been advised this medication may be expected to assist with anxiety. 01/09/2019 -We appreciate input from medical service. Per medical progress note 01/08/2019 clonidine prn discontinued by hospitalist and low-dose amlodipine initiated, however it appears the amlodipine was discontinued and propranolol LA 60 mg daily started instead. -Reviewed risks of uncontrolled hypertension with patient today. She demonstrated an illogical belief that medication recommendations are being, at least in part, driven by "bureaucracy" which likely impacts her willingness to comply with treatment recommendations 01/10/2019 Blood pressure improved this morning. Appreciate hospitalist follow-up. Propranolol increased to 80 mg daily this morning. She did receive a clonidine pr dose for blood pressure elevation yesterday. Hopefully the clonidine will soon no longer be needed with titration of the beta-steve. (5) Sleep apnea: 01/05 -patient reports diagnosis of obstructive sleep apnea and is prescribed CPAP, but has been noncompliant with it for years. Sleep is chronically poor and this is likely contributing to depression. She is aware that she needs to resume, and reports having an appointment with a sleep physician at [facility] next month. 01/07 - Reviewed recommendations from hospitalist team - Hospitalists have coordinated with respiratory to begin CPAP this evening - Pt placed on MNPR as per protocol for oxygen, per protocol she will also require 1:1 over night - Keep sleep medicine appointment next month for review 01/08 -The patient was unable to tolerate a CPAP last night and after a brief trial insisted on not wearing it. Subsequent to that, the patient was very anxious and had difficulty falling back to sleep. She is told us that she will refuse to wear her CPAP machine and is unwilling to consider alternative treatments at this time. CPAP was discontinued. (6) Kidney mass: Follow-up with urologist as recommended Risk Factors Assessment Male: No : Yes Do You Have Access To A Gun?: No Health Problems: Yes Mental Health Diagnoses: Yes Substance Use Disorders: No Previous Attempt: Yes Family History of Suicide: No Previous Psychiatric Hospitalization: No Hopelessness: Yes Smoker: No Protective Factors Assessment Worship Beliefs: Yes : No Responsible for Young Children: No Employed: No Stable Relationships: Yes Supportive Family: No Good Rapport with Provider: No Interval History Identifying Information HAILEY MATHIS is a 63-year-old F who currently lives alone in [place], has a history of depression, and was admitted on 01/04/19 21:31 on a 201 voluntary commitment for worsening depression and suicidal ideation. Chief Complaint "Friday was okay, I think because I got a good night sleep. Friday I was definitely not feeling so well." Review of Systems Notes Constitutional: reports poor sleep, "maybe 1-2 hours", stating she is awake for most 15 minute checks over night Cardiovascular: denied Respiratory: denied Gastrointestinal: denied Neurological: denied Psychiatric: denies symptoms other than stated above Total of at least 10 systems reviewed, pertinent positives as above and in HPI. Sleep Information Total Hours of Sleep: 7.75 Sleep Comments: pt given vistaril per rn. pt on q-15 minute checks Meal Information Percent Meal Consumed - Breakfast: 50 Percent Meal Consumed - Lunch: 100 Percent Meal Consumed - Dinner: 100 Subjective Subjective Patient was seen & assessed and interval progress reviewed with treatment team. Staff reports the patient continues to demonstrate an irritable affect. She continues to struggle with cognitive distortions causing her to believe she has no outpatient support, despite multiple visitors seeing her in the hospital. Patient did participate in a meeting with an outpatient support over the weekend. Patient was seen today to assess progress since admission. She states that she had a decent day on Friday, believing this was because she had a good night sleep. Patient states that "someday I was not feeling so well", reporting this statement applies to both her physical and mental state during the day. Patient shares with this provider that she is irritated the people are not in agreement with medication recommendations. This provider attempted to clarify the various thought processes, and explained to patient that sometimes there are multiple paths that can lead to similar results. Patient continues to state that she is not overly comfortable with medication adjustments, and this continues to bring her significant anxiety. Patient was asked about current suicidality, which she is not able to convincingly deny. She does admit to making an off-color suicidal statement to a counselor this morning stating "I am ready to ." When asked about the statement by this provider, she states it was not serious, but is not able to give the context in which the statement was made. Patient does admit, "I am afraid, I am afraid of myself. This internal fight is very hard." Patient was asked what she meant by this, and replied by stating "it is tough to feel so terrible on the inside, but have to look pulled together on the outside." Patient admits that sleep continues to be a big concern for her, stating she only slept "1 or 2 hours last night." Patient states "I definitely cannot go home until my sleep is figured out. Not sleeping is the whole reason my mood got so low." She states she does not feel comfortable with the idea of discharge at this time. Patient denies any specific needs or concerns today. Physical Exam Psychiatric Orientation: alert, oriented x 3 and cooperative Apperance: appropriately dressed, appropriately groomed and appeared stated age Eye Contact: good eye contact Motor Behavior: steady gait and station and no abnormal motor movements Speech: normal rate/rhythm/volume of speech (irritable tone at times) Affect: + depressed affect, + anxious affect and + irritable affect Mood: + depressed mood ("Not feeling so good. I'm really not sure.") and + anxious mood (reports feeling overwhelmed with medication adjustments) Thought Process: goal directed thought process (though admits level of anxiety interferes with decision making) and thought association intact Thought Content: reality based without delusions Suicidal Thoughts: + reports suicidal thoughts (not convincingly able to deny SI) Reports feeling "afraid of myself" Homicidal Thoughts: denies homicidal thoughts Hallucinations: no auditory hallucinations and no visual hallucinations Cognition: attention grossly intact and language grossly intact Insight: + fair insight Judgement: + fair judgement Vital Signs (Past 24 Hours) Last Vital Signs Temp 36.5 C 01/11/19 06:35 Pulse 112 H 01/11/19 09:32 Resp 16 01/11/19 09:32 BP 152/92 H 01/11/19 09:32 Pulse Ox 97 01/07/19 23:18 Results & Data Current Inpatient Medications Current Inpatient Medications: Current Inpatient Medications Acetaminophen (Tylenol) 650 mg PO Q4H PRN PRN Reason: Headache or Minor Fever Stop: 02/03/19 22:42 Last Admin: 01/10/19 20:58 Dose: 650 mg Documented by: Al Hydrox/Mg Hydrox/Simethicone (Maalox) 30 ml PO Q4H PRN PRN Reason: GI Upset Stop: 02/03/19 22:42 Bismuth Subsalicylate (Kaopectate) 15 ml PO PRN PRN PRN Reason: Loose Stool Stop: 02/03/19 22:42 Clonidine HCl (Catapres) 0.05 mg PO Q4H PRN PRN Reason: Hypertension Stop: 02/08/19 16:15 Last Admin: 01/09/19 16:42 Dose: 0.05 mg Documented by: Fluoxetine HCl (Prozac) 10 mg PO QAM LUPE Stop: 02/08/19 08:59 Last Admin: 01/11/19 09:09 Dose: 10 mg Documented by: Hydroxyzine HCl (Vistaril) 50 mg PO HSZ PRN PRN Reason: Insomnia Stop: 02/03/19 22:42 Last Admin: 01/11/19 00:59 Dose: 50 mg Documented by: Hydroxyzine HCl (Vistaril) 25 mg PO Q4H PRN PRN Reason: Anxiety Stop: 02/03/19 22:42 Last Admin: 01/10/19 19:15 Dose: 25 mg Documented by: Lamotrigine (Lamictal) 25 mg PO HS LUPE Stop: 02/07/19 21:59 Last Admin: 01/10/19 20:58 Dose: 25 mg Documented by: Losartan Potassium (Cozaar) 100 mg PO QAM LUPE Stop: 02/05/19 08:59 Last Admin: 01/11/19 09:09 Dose: 100 mg Documented by: Magnesium Hydroxide (Milk Of Magnesia) 30 ml PO DAILY PRN PRN Reason: Constipation Stop: 02/03/19 22:42 Propranolol HCl (Inderal La) 60 mg PO QAM LUPE Stop: 02/10/19 08:59 Last Admin: 01/11/19 09:08 Dose: 60 mg Documented by: Sodium Chloride (Wetzel Nasal) 1 - 2 sprays NA PRN PRN PRN Reason: Nasal Dryness/Congestion Stop: 02/03/19 22:42 Mental Health & Subst Abuse Tx Psychiatrist Name of Psychiatrist: Dawna Choi [facility] Psychiatrist's Date of Appointment with Psychiatrist: 01/26/19 Time of Appointment with Psychiatrist: 1:00 p.m. Psychiatric Appointment Comment: [facility] [place] [address] Therapist Name of Therapist: Sera Munoz [facility], [facility] Therapist's Phone Number: [phone] Date of Therapist Appointment: 01/15/19 Time of Therapist Appointment: 1pm Therapy Appointment Comment: [address] [facility] [address] Integrated Circuit Design Engineer Name of Integrated Circuit Design Engineer: Denies/None Post Discharge Appointments Primary Care Physician Name Of Family Doctor: [facility] Date of Appointment with PCP: 01/20/19 Time of Appointment with PCP: 10:30 a.m. Provider Appointment Comment: [address] [facility] Specialist Name of Specialist: [facility] Mini Chung Phone Number for Specialist: [phone] Date of Appointment with Specialist: 01/20/19 Time of Appointment with Specialist: 4:10 p.m. Specialty Appointment Comment: [address] [place] [address] Other #1: Name of Aftercare Appointment: [facility] - Dr. Solomon Phone Number of Aftercare Appointment: [phone] Date of Aftercare Appointment: 02/03/19 Time of Aftercare Appointment: 1:00 p.m. Aftercare Appointment Comment: [address] [facility] #2: Name of Aftercare Appointment: [facility] - CT Sinus Scan Date of Aftercare Appointment: 01/13/19 Time of Aftercare Appointment: 11:00 a.m. (arrive by 10:30 a.m. please) Aftercare Appointment Comment: [address] [facility] Contact Information Discharge Discharge Address: [address] [place] [address] (1) Hypertension Hypertension type: essential hypertension Qualified Code(s): I10 - Essential (primary) hypertension
[2019-01-11] MEDS: lamoTRIgine 25 MG TAB PO SCH (20:30)
[2019-01-12] MEDS: LOSARTAN POTASSIUM 25 MG TAB PO SCH (09:09)
[2019-01-12] MEDS: FLUOXETINE HCL 10 MG CAP PO SCH (09:10)
[2019-01-12] MEDS: PROPRANOLOL HCL 60 MG LA CAP PO SCH (09:10)
--- NOTE | 2019-01-12 10:17 | Psychiatric Progress Note ---
Date of Service January 12, 2019 Impression / Recommendations Impression 63-year-old single female with a history of bipolar 2, generalized anxiety disorder, and multiple medical problems who presents with worsening mood and suicidal ideation in the context of noncompliance with mental health treatment, including medications and therapy, as well as worsening medical conditions and increased social isolation. She did well and was stable on low-dose duloxetine for years, and agreed to resume it while monitoring closely for impact to liver and mood destabilization. She has never taken a mood stabilizer, but reportedly had manic symptoms with an SSRI in the past, so close monitoring is indicated. She was agreeable with initiation of fluoxetine and lamotrigine to target depression, anxiety, and irritability. She has improved slightly but continues to feel anxious and overwhelmed, and does not yet feel ready to leave the hospital. She is working on ways to increase supports after hospitalization. Recommend ongoing inpatient treatment due to severity of symptoms and risk for rapid decompensation if discharged at this time. (1) Suicidal ideation: Q 15 min checks for safety Work on healthy coping skills and discharge safety plan. 01/06 - Pt denies SI today, but admits to inability to contract for safety outside of the hospital setting 01/07 - Pt endorses SI this morning, with consideration to "drown myself or stab myself" - Is not able to contract for safety and admits, "I'm at my wit's end" 01/08 -The patient continues to describe feeling hopeless and helpless. She acknowledges ongoing thoughts of suicide, including thoughts of stabbing herself and drowning herself,as well as deliberately driving her car at full speed into a stationary object such as a tree. -She is unable to contract for safety in the community. She does tell us that she does not have any current thoughts of physically harming herself in the hospital, although she also says that she cannot guarantee that such thoughts will emerge. She does, however, promised that she will let us know if such thoughts developed during the hospital stay and prior to actually acting on them. 01/09/2019 -Patient appears more irritable today but denying active suicidal ideation this morning which she attributes to improved sleep last night. Remains at elevated risk if discharged prematurely 01/10/2019 -Less irritable, more calm and pleasant today. Denying suicidal ideation today 01/11 - Pt is not able to convincingly deny SI today - stating "I'm afraid, I'm afraid of myself." - When asked if she is suicidal, she reported "I can't really say, I'm not sure." (2) Bipolar II disorder: 01/05 - Reviewed OP records from [facility], diagnosed bipolar II and h/o manic symptoms on citalopram, but did the best on duloxetine 30mg daily (stable for years, and helped chronic pain). Reviewed risks, benefits and side effects and patient agreed to resume. Also discussed lurasidone (states she can't afford it), as well as lamotrigine. - Consider addition of mood stabilizer (lamotrigine?) - Collateral information from friends/supports, family meeting if indicated. - Refer for OP treatment. - Encourage group attendance and participation. 01/06 - Continue duloxetine 20mg daily - Reviewed recommendation to trial lamotrigine as mood stabilization agent, given it is a weight neutral and rather inexpensive option - Pt requesting information and was provided with an UpToDate patient handout, asking to discuss again tomorrow - Encourage group participation - Continue to arrange aftercare 01/07 -The diagnosis of bipolar disorder was evidently based on the opinion of her previous outpatient provider, individual who is quite familiar with the patient and her illness. Although the patient does not independently provide a clear history consistent with the diagnoses of ramona or hypomania, what is quite clear is that she has a long-standing history of difficulty regulating her mood, particularly when issues of abandonment may arise. -For the above reason we have begun the patient on lamotrigine 25 mg daily, and will titrate this dose on a semilunar basis, as indicated and tolerated. Material risks of lamotrigine, including but not limited to's sedation and Coleman-Tenzin syndrome were reviewed with the patient by Dr. Vance. She asked a number of questions, and approached several staff members for additional information. Following formal review with Dr. Vance today she agreed to begin lamotrigine. -The patient's primary mood symptom appears to be depression, and with the ad dition of a mood stabilizing agent we plan to pursue antidepressant treatment. Because of the possible negative placebo effect now associated with duloxetine and the patient reports that this medication has been causing her to be "more depressed" and more suicidal, we recommended fluoxetine 10 mg daily, to be titrated as indicated. We feel that the choice of fluoxetine has the advantage of being a long-acting antidepressant medication that may allow the patient to intentionally or intermittently "skip" dosages without significant negative therapeutic disadvantage. Also, we are struck by the obsessive nature of the patient's approach to all decisions ("analysis paralysis") and, hopefully, at a standard dose of fluoxetine may assist the patient her obsessive thinking. Material risks and anticipated benefits of fluoxetine were reviewed with the patient and after asking a number of questions and after asking us to please start at a low dose, the patient indicated understanding and agreement. 01.07 - Continue current treatment regimen - reviewed again recommendation to initiate lamotrigine, patient presents as anxiety and overwhelmed with decision, but is not able today to consent to initiation of medication - She questions desire to continue duloxetine, but has difficulty tolerating conversation about recommended treatment due to level of anxiety - Current recommendation is to add lamotrigine to current dosage of duloxetine - patient considering sertraline or paroxetine should she desire to change antidepressant medications - Pt has historically responded best to medication recommendations not feeling pressured, but likely requires clear and simple recommendations at this time given severity of anxiety 01/09/2019 -Patient was started on Lamictal and Prozac yesterday. More irritable this morning, possibly associated with discontinuation of duloxetine as irritability preceded Prozac first dose and felt unlikely medication side effect sister with Lamictal last evening. In setting of irritability, I feel Prozac might not be the best option for her as it can be problematically activating and the half- life is very long such that it can be difficult to stop quickly if necessary. I suggested we consider something a little more calming, such as buspirone, however she appeared overwhelmed by all the medication changes and refused but agreed to consider another change tomorrow 01/10/2019 -Reviewed importance of regular sleep for mood stability. Suggested we trial prazosin at a low dose which may help sleep onset due to sedating nature but no additional risk for sleep apnea and may help with her hypertension as well. She agreed to consider it but was not ready to commit to a new medication trial 01/11 - Continue current medication regimen, revisited the idea of prazosin, but again patient was not able to commit to additional medication changes as recommended 01/12 -Denies side effects thus far with medications, but very anxious about furthe r titration or addition of other medications as she feels this is ""too much to do at once." (3) Anxiety: TAL - resume SNRI, engage in therapy, work on healthy coping skills. 01/07 - Continue to utilize hydroxyzine prn for acute anxiety - Encourage development of healthy coping strategies, encourage participation in group programming 01/09/2019 -More irritable this morning. Considering BuSpar trial. Recommended she utilize the hydroxyzine as needed throughout the day 01/10/2019 -Continue hydroxyzine as needed for insomnia 01/12 -Continue working on behavioral techniques for managing anxiety, identifying and correcting cognitive distortions, and healthy coping skills. (4) Hypertension: 01/05 - Poorly controlled, resume home dose of Cozaar and monitor. Will need f/u with PCP 01/06 - Hospitalist consultation requested; appreciate recommendations - Suggested continuation of home dose of losartan 100mg, as HTN is felt to be related to anxiety - Given reported lightheadedness after receiving prn clonidine, it was suggested to reduce dose to 0.05mg prn - and utilize for systolic BP >160 01/07 - Continue as above - Recommendations for treatment of sleep apnea as below 01/08 -Begin Prozac 10 mg a day and titrate as indicated. The patient has been advised this medication may be expected to assist with anxiety. 01/09/2019 -We appreciate input from medical service. Per medical progress note 01/08/2019 clonidine prn discontinued by hospitalist and low-dose amlodipine initiated, however it appears the amlodipine was discontinued and propranolol LA 60 mg daily started instead. -Reviewed risks of uncontrolled hypertension with patient today. She demonstrated an illogical belief that medication recommendations are being, at least in part, driven by "bureaucracy" which likely impacts her willingness to comply with treatment recommendations 01/10/2019 Blood pressure improved this morning. Appreciate hospitalist follow-up. Propranolol increased to 80 mg daily this morning. She did receive a clonidine pr dose for blood pressure elevation yesterday. Hopefully the clonidine will soon no longer be needed with titration of the beta-steve. 01/12 -Blood pressure remains intermittently elevated, but has come down overall, and this morning was 138/84. (5) Sleep apnea: 01/05 -patient reports diagnosis of obstructive sleep apnea and is prescribed CPAP, but has been noncompliant with it for years. Sleep is chronica lly poor and this is likely contributing to depression. She is aware that she needs to resume, and reports having an appointment with a sleep physician at [facility] next month. 01/07 - Reviewed recommendations from hospitalist team - Hospitalists have coordinated with respiratory to begin CPAP this evening - Pt placed on MNPR as per protocol for oxygen, per protocol she will also require 1:1 over night - Keep sleep medicine appointment next month for review 01/08 -The patient was unable to tolerate a CPAP last night and after a brief trial insisted on not wearing it. Subsequent to that, the patient was very anxious and had difficulty falling back to sleep. She is told us that she will refuse to wear her CPAP machine and is unwilling to consider alternative treatments at this time. CPAP was discontinued. 01/12 - Patient anxious about using CPAP, but concerned about her chronic poor sleep. Advised that it will be very important to find a way to use the CPAP, as this is going to be necessary for her to get healthy, restful sleep. Encouraged her to discuss the issues that she has been having with that with her sleep physician and to work toward ways to make it more tolerable. (6) Kidney mass: Follow-up with urologist, Dr. Chung, as recommended on 01/20/2019. Risk Factors Assessment Male: No : Yes Do You Have Access To A Gun?: No Health Problems: Yes Mental Health Diagnoses: Yes Substance Use Disorders: No Previous Attempt: Yes Family History of Suicide: No Previous Psychiatric Hospitalization: No Hopelessness: Yes Smoker: No Protective Factors Assessment Orthodox Beliefs: Yes : No Responsible for Young Children: No Employed: No Stable Relationships: Yes Supportive Family: No Good Rapport with Provider: No Interval History Identifying Information HAILEY MATHIS is a 63-year-old F who currently lives alone in [place], has a history of depression, and was admitted on 01/04/19 21:31 on a 201 voluntary commitment for worsening depression and suicidal ideation. Chief Complaint "I don't know, better than when I came in I guess". Review of Systems Sleep Information Total Hours of Sleep: 6.75 Sleep Comments: pt on q-15 minute checks. pt used the quiet room due to roommate snoring. Meal Information Percent Meal Consumed - Breakfast: 50 Percent Meal Consumed - Lunch: 100 Percent Meal Consumed - Dinner: 60 Subjective Subjective Patient was seen & assessed and interval progress reviewed with nursing and social work. Staff report she continues to be irritable, easily overwhelmed, fearful of leaving the hospital, and unable to contract for safety outside the hospital. She became very upset when informed of her insurance's decision not to cover ongoing hospitalization, stating they were forcing her to "be kicked out." licensed master social worker discussed recommendations for case management referral with her, but she felt unable to make a decision. She was unable to sleep due to roommate's snoring, so slept in the quiet room. On my assessment, she reports she is "a little calmer" and thoughts have slowed since admission, but mood remains depressed, and she is very anxious, worried about her sleep, medical problems, medications, how she will do when she goes home, being alone, and her medications/treatment options. She has been talking to her friends who have visited and says one friend offered for her to come stay with her briefly so she won't be alone. She denies suicidal thoughts and feels safe here, but does not feel safe leaving the hospital as she doesn't think she has improved much and will decompensate if she goes home, but also states she "can't afford to pay for it, and if the insurance company won't pay for it, I have to go. I'm tired of the insurance company doing this, they don't care." She reports feeling overwhelmed by the discussion about outpatient case management services, stating she doesn't understand the different types, although agrees it could help. Physical Exam Psychiatric Orientation: alert and cooperative Apperance: appropriately dressed, appropriately groomed and appeared stated age Eye Contact: + fair eye contact Motor Behavior: steady gait and station (slowed) and no abnormal motor movements Speech: normal rate/rhythm/volume of speech Affect: + depressed affect, + anxious affect and mood congruent with affect Mood: + depressed mood and + anxious mood Thought Process: goal directed thought process Thought Content: + cognitive distortions Suicidal Thoughts: denies suicidal thoughts Homicidal Thoughts: denies homicidal thoughts Hallucinations: no auditory hallucinations and no visual hallucinations Cognition: recent memory grossly intact, attention grossly intact and language grossly intact Insight: + fair insight Judgement: + fair judgement Vital Signs (Past 24 Hours) Last Vital Signs Temp 36.6 C 01/12/19 06:41 Pulse 76 01/12/19 06:41 Resp 20 01/12/19 06:41 BP 147/92 H 01/12/19 06:41 Pulse Ox 97 01/07/19 23:18 Results & Data Current Inpatient Medications Current Inpatient Medications: Current Inpatient Medications Acetaminophen (Tylenol) 650 mg PO Q4H PRN PRN Reason: Headache or Minor Fever Stop: 02/03/19 22:42 Last Admin: 01/10/19 20:58 Dose: 650 mg Documented by: Al Hydrox/Mg Hydrox/Simethicone (Maalox) 30 ml PO Q4H PRN PRN Reason: GI Upset Stop: 02/03/19 22:42 Bismuth Subsalicylate (Kaopectate) 15 ml PO PRN PRN PRN Reason: Loose Stool Stop: 02/03/19 22:42 Clonidine HCl (Catapres) 0.05 mg PO Q4H PRN PRN Reason: Hypertension Stop: 02/08/19 16:15 Last Admin: 01/09/19 16:42 Dose: 0.05 mg Documented by: Fluoxetine HCl (Prozac) 10 mg PO QAM LUPE Stop: 02/08/19 08:59 Last Admin: 01/12/19 09:10 Dose: 10 mg Documented by: Hydroxyzine HCl (Vistaril) 50 mg PO HSZ PRN PRN Reason: Insomnia Stop: 02/03/19 22:42 Last Admin: 01/11/19 00:59 Dose: 50 mg Documented by: Hydroxyzine HCl (Vistaril) 25 mg PO Q4H PRN PRN Reason: Anxiety Stop: 02/03/19 22:42 Last Admin: 01/10/19 19:15 Dose: 25 mg Documented by: Lamotrigine (Lamictal) 25 mg PO HS LUPE Stop: 02/07/19 21:59 Last Admin: 01/11/19 20:30 Dose: 25 mg Documented by: Losartan Potassium (Cozaar) 100 mg PO QAM LUPE Stop: 02/05/19 08:59 Last Admin: 01/12/19 09:09 Dose: 100 mg Documented by: Magnesium Hydroxide (Milk Of Magnesia) 30 ml PO DAILY PRN PRN Reason: Constipation Stop: 02/03/19 22:42 Propranolol HCl (Inderal La) 60 mg PO QAM LUPE Stop: 02/10/19 08:59 Last Admin: 01/12/19 09:10 Dose: 60 mg Documented by: Sodium Chloride ([place] Nasal) 1 - 2 sprays NA PRN PRN PRN Reason: Nasal Dryness/Congestion Stop: 02/03/19 22:42 Mental Health & Subst Abuse Tx Psychiatrist Name of Psychiatrist: Erasmo Goel [facility] Psychiatrist's Date of Appointment with Psychiatrist: 01/26/19 Time of Appointment with Psychiatrist: 1:00 p.m. Psychiatric Appointment Comment: [facility] [facility] [place] [address] Therapist Name of Therapist: Sera Munoz [facility], [facility] Therapist's Phone Number: [phone] Date of Therapist Appointment: 01/15/19 Time of Therapist Appointment: 1pm Therapy Appointment Comment: [address] [facility] [id number] [employer] Top [employer]sembler Name of Counter Top Assembler: Denies/None Post Discharge Appointments Primary Care Physician Name Of Family Doctor: [facility] Date of Appointment with PCP: 01/20/19 Time of Appointment with PCP: 10:30 a.m. Provider Appointment Comment: [id number] [facility] Specialist Name of Specialist: [facility] - Dr. Chung Phone Number for Specialist: [phone] Date of Appointment with Specialist: 01/20/19 Time of Appointment with Specialist: 4:10 p.m. Specialty Appointment Comment: [address] [facility] Contact Information Discharge Discharge Address: [address] [place] [id number] (1) Hypertension Hypertension type: essential hypertension Qualified Code(s): I10 - Essential (primary) hypertension
[2019-01-12] MEDS: ACETAMINOPHEN 325 MG TAB PO PRN (17:48)
[2019-01-12] MEDS: lamoTRIgine 25 MG TAB PO SCH (21:22)
[2019-01-13] MEDS: LOSARTAN POTASSIUM 25 MG TAB PO SCH (08:56)
[2019-01-13] MEDS: FLUOXETINE HCL 10 MG CAP PO SCH (08:56)
[2019-01-13] MEDS: PROPRANOLOL HCL 60 MG LA CAP PO SCH ×2 (09:02→09:26)
[2019-01-13] MEDS ORDERED: ONDANSETRON 4 MG OD TAB PO PRN (10:41)
--- NOTE | 2019-01-13 10:48 | Psychiatric Progress Note ---
Date of Service January 13, 2019 Impression / Recommendations Impression 63-year-old single female with a history of bipolar disorder type II, generalized anxiety disorder, and multiple medical problems who presents with worsening mood and suicidal ideation in the context of noncompliance with mental health treatment, including medications and therapy, as well as worsening medical conditions and increased social isolation. She did well and was stable on low-dose duloxetine for years, and agreed to resume it while monitoring closely for impact to liver and mood destabilization. She has never taken a mood stabilizer, but reportedly had manic symptoms with an SSRI in the past, so close monitoring is indicated. She was later switched from duloxetine to fluoxetine, as she thought duloxetine was making her feel worse, and lamotrigine was started to target depression, anxiety, and irritability. She has improved slightly but continues to feel anxious and overwhelmed, and does not yet feel ready to leave the hospital. She is working on ways to increase supports after hospitalization. Recommend ongoing inpatient treatment due to severity of symptoms and risk for rapid decompensation if discharged at this time. (1) Suicidal ideation: Q 15 min checks for safety Work on healthy coping skills and discharge safety plan. 01/06 - Pt denies SI today, but admits to inability to contract for safety outside of the hospital setting 01/07 - Pt endorses SI this morning, with consideration to "drown myself or stab myself" - Is not able to contract for safety and admits, "I'm at my wit's end" 01/08 -The patient continues to describe feeling hopeless and helpless. She acknowledges ongoing thoughts of suicide, including thoughts of stabbing herself and drowning herself,as well as deliberately driving her car at full speed into a stationary object such as a tree. -She is unable to contract for safety in the community. She does tell us that she does not have any current thoughts of physically harming herself in the hospital, although she also says that she cannot guarantee that such thoughts will emerge. She does, however, promised that she will let us know if such thoughts developed during the hospital stay and prior to actually acting on them. 01/09/2019 -Patient appears more irritable today but denying active suicidal ideation this morning which she attributes to improved sleep last night. Remains at elevated risk if discharged prematurely 01/10/2019 -Less irritable, more calm and pleasant today. Denying suicidal ideation today 01/11 - Pt is not able to convincingly deny SI today - stating "I'm afraid, I'm afraid of myself." - When asked if she is suicidal, she reported "I can't really say, I'm not sure." (2) Bipolar II disorder: 01/05 - Reviewed OP records from [facility], diagnosed bipolar II and h/o manic symptoms on citalopram, but did the best on duloxetine 30mg daily (stable for years, and helped chronic pain). Reviewed risks, benefits and side effects and patient agreed to resume. Also discussed lurasidone (states she can't afford it), as well as lamotrigine. - Consider addition of mood stabilizer (lamotrigine?) - Collateral information from friends/supports, family meeting if indicated. - Refer for OP treatment. - Encourage group attendance and participation. 01/06 - Continue duloxetine 20mg daily - Reviewed recommendation to trial lamotrigine as mood stabilization agent, given it is a weight neutral and rather inexpensive option - Pt requesting information and was provided with an UpToDate patient handout, asking to discuss again tomorrow - Encourage group participation - Continue to arrange aftercare 01/07 -The diagnosis of bipolar disorder was evidently based on the opinion of her previous outpatient provider, individual who is quite familiar with the patient and her illness. Although the patient does not independently provide a clear history consistent with the diagnoses of ramona or hypomania, what is quite clear is that she has a long-standing history of difficulty regulating her mood, particularly when issues of abandonment may arise. -For the above reason we have begun the patient on lamotrigine 25 mg daily, and will titrate this dose on a semilunar basis, as indicated and tolerated. Material risks of lamotrigine, including but not limited to's sedation and Coleman-Tenzin syndrome were reviewed with the patient by Dr. Vance. She asked a number of questions, and approached several staff members for additional information. Following formal review with Dr. Vance today she agreed to begin lamotrigine. -The patient's primary mood symptom appears to be depression, and with the addition of a mood stabilizing agent we plan to pursue antidepressant treatment. Because of the possible negative placebo effect now associated with duloxetine and the patient reports that this medication has been causing her to be "more depressed" and more suicidal, we recommended fluoxetine 10 mg daily, to be ti trated as indicated. We feel that the choice of fluoxetine has the advantage of being a long-acting antidepressant medication that may allow the patient to intentionally or intermittently "skip" dosages without significant negative therapeutic disadvantage. Also, we are struck by the obsessive nature of the patient's approach to all decisions ("analysis paralysis") and, hopefully, at a standard dose of fluoxetine may assist the patient her obsessive thinking. Material risks and anticipated benefits of fluoxetine were reviewed with the patient and after asking a number of questions and after asking us to please start at a low dose, the patient indicated understanding and agreement. 01.07 - Continue current treatment regimen - reviewed again recommendation to initiate lamotrigine, patient presents as anxiety and overwhelmed with decision, but is not able today to consent to initiation of medication - She questions desire to continue duloxetine, but has difficulty tolerating conversation about recommended treatment due to level of anxiety - Current recommendation is to add lamotrigine to current dosage of duloxetine - patient considering sertraline or paroxetine should she desire to change antidepressant medications - Pt has historically responded best to medication recommendations not feeling pressured, but likely requires clear and simple recommendations at this time given severity of anxiety 01/09/2019 -Patient was started on Lamictal and Prozac yesterday. More irritable this morning, possibly associated with discontinuation of duloxetine as irritability preceded Prozac first dose and felt unlikely medication side effect sister with Lamictal last evening. In setting of irritability, I feel Prozac might not be the best option for her as it can be problematically activating and the half- life is very long such that it can be difficult to stop quickly if necessary. I suggested we consider something a little more calming, such as buspirone, however she appeared overwhelmed by all the medication changes and refused but agreed to consider another change tomorrow 01/10/2019 -Reviewed importance of regular sleep for mood stability. Suggested we trial prazosin at a low dose which may help sleep onset due to sedating nature but no additional risk for sleep apnea and may help with her hypertension as well. She agreed to consider it but was not ready to commit to a new medication trial 01/11 - Continue current medication regimen, revisited the idea of prazosin, but again patient was not able to commit to additional medication changes as recommended 01/12 -Denies side effects thus far with medications, but very anxious about further titration or addition of other medications as she feels this is ""too much to do at once." 01/13 -Nausea and vomiting today, will not change medications as patient is very concerned about side effects and tends to blame medications for her multiple somatic symptoms. (3) Anxiety: TAL - resume SNRI, engage in therapy, work on healthy coping skills. 01/07 - Continue to utilize hydroxyzine prn for acute anxiety - Encourage development of healthy coping strategies, encourage participation in group programming 01/09/2019 -More irritable this morning. Considering BuSpar trial. Recommended she utilize the hydroxyzine as needed throughout the day 01/10/2019 -Continue hydroxyzine as needed for insomnia 01/12 -Continue working on behavioral techniques for managing anxiety, identifying and correcting cognitive distortions, and healthy coping skills. 01/13 -Patient very anxious about how to manage her insomnia and perception of poor sleep. Reviewed sleep hygiene in detail, encouraged her to get daily physical activity, avoid caffeine, maintain stable bedtime, avoid screens at bedtime, and relaxation techniques to prepare for sleep. Also discussed developing a plan for what to do when she cannot sleep and making it part of her safety plan. Recommend that if she is not asleep after a set amount of time (1 hour), that she get out of bed and do something calm and relatively unstimulating (read a book, listen to music) until she again feels sleepy, then returning to bed. Also discussed the importance of ongoing treatment to address her anxiety, depression, and sleep apnea, as all of these things interfere with restful sleep. (4) Hypertension: 01/05 - Poorly controlled, resume home dose of Cozaar and monitor. Will need f/u with PCP 01/06 - Hospitalist consultation requested; appreciate recommendations - Suggested continuation of home dose of losartan 100mg, as HTN is felt to be related to anxiety - Given reported lightheadedness after receiving prn clonidine, it was suggested to reduce dose to 0.05mg prn - and utilize for systolic BP >160 01/07 - Continue as above - Recommendations for treatment of sleep apnea as below 01/08 -Begin Prozac 10 mg a day and titrate as indicated. The patient has been advised this medication may be expected to assist with anxiety. 01/09/2019 -We appreciate input from medical service. Per medical progress note 01/08/2019 clonidine prn discontinued by hospitalist and low-dose amlodipine initiated, however it appears the amlodipine was discontinued and propranolol LA 60 mg daily started instead. -Reviewed risks of uncontrolled hypertension with patient today. She demonstrated an illogical belief that medication recommendations are being, at least in part, driven by "bureaucracy" which likely impacts her willingness to comply with treatment recommendations 01/10/2019 Blood pressure improved this morning. Appreciate hospitalist follow-up. Propranolol increased to 80 mg daily this morning. She did receive a clonidine pr dose for blood pressure elevation yesterday. Hopefully the clonidine will soon no longer be needed with titration of the beta-steve. 01/12 -Blood pressure remains intermittently elevated, but has come down overall, and this morning was 138/84. (5) Sleep apnea: 01/05 -patient reports diagnosis of obstructive sleep apnea and is prescribed CPAP, but has been noncompliant with it for years. Sleep is chronically poor and this is likely contributing to depression. She is aware that she needs to resume, and reports having an appointment with a sleep ph ysician at [facility] next month. 01/07 - Reviewed recommendations from hospitalist team - Hospitalists have coordinated with respiratory to begin CPAP this evening - Pt placed on MNPR as per protocol for oxygen, per protocol she will also require 1:1 over night - Keep sleep medicine appointment next month for review 01/08 -The patient was unable to tolerate a CPAP last night and after a brief trial insisted on not wearing it. Subsequent to that, the patient was very anxious and had difficulty falling back to sleep. She is told us that she will refuse to wear her CPAP machine and is unwilling to consider alternative treatments at this time. CPAP was discontinued. 01/12 - Patient anxious about using CPAP, but concerned about her chronic poor sleep. Advised that it will be very important to find a way to use the CPAP, as this is going to be necessary for her to get healthy, restful sleep. Encouraged her to discuss the issues that she has been having with that with her sleep physician and to work toward ways to make it more tolerable. (6) Kidney mass: Follow-up with urologist, Dr. Chung, as recommended on 01/20/2019. (7) Nausea: 01/12/2019 -ondansetron previously effective, start 4 mg to 4 hours as needed. Risk Factors Assessment Male: No : Yes Do You Have Access To A Gun?: No Health Problems: Yes Mental Health Diagnoses: Yes Substance Use Disorders: No Previous Attempt: Yes Family History of Suicide: No Previous Psychiatric Hospitalization: No Hopelessness: Yes Smoker: No Protective Factors Assessment Nondenominational Beliefs: Yes : No Responsible for Young Children: No Employed: No Stable Relationships: Yes Supportive Family: No Good Rapport with Provider: No Interval History Identifying Information HAILEY MATHIS is a 63-year-old F who currently lives alone in [place], has a history of depression, and was admitted on 01/04/19 21:31 on a 201 voluntary commitment for worsening depression and suicidal ideation. Chief Complaint "Not feeling good, real nauseated". Review of Systems Notes Nausea Sleep Information Total Hours of Sleep: 6 Sleep Comments: pt on q-15 minute checks. pt used the quiet room to sleep due to roommate snoring Meal Information Percent Meal Consumed - Breakfast: 50 Percent Meal Consumed - Lunch: 100 Percent Meal Consumed - Dinner: 65 Subjective Subjective Patient was seen & assessed and interval progress reviewed with treatment team. Staff reports she is very anxious and perseverating on discharge and her poor sleep. She requested and received hydroxyzine 50 mg last night, and initially tried to sleep in the quiet room, but later went back to her room, and was irritable with staff. She had multiple somatic complaints last evening, including headache, nausea, and weakness. This morning she is reporting concerns that she will not be able to sleep when she leaves the hospital, although per staff reports she slept 6 hours overnight. She is also reporting nausea and dry heaves, and states she was seen in the ER for similar symptoms a couple of weeks ago and received a medication that was helpful (reviewed records, ondansetron ordered). She has a follow-up appointment scheduled with her PCP next week, and states the nausea has been going on for weeks to months and is intermittent. She is very focused on her perception that she is not sleeping, reporting difficulty falling asleep and early intervention specialist awakening. She does think hydroxyzine is helpful. She wants to know what she should do when she is at home and cannot sleep, and reviewed sleep hygiene in detail as well as a part of her safety plan specifically addressing what to do when she cannot sleep. Physical Exam Psychiatric Orientation: alert and cooperative Apperance: appropriately dressed, appropriately groomed and appeared stated age Eye Contact: good eye contact Motor Behavior: no abnormal motor movements Speech: normal rate/rhythm/volume of speech Affect: + anxious affect, + constricted affect and mood congruent with affect "Don't feel well." Thought Process: + perseveration Thought Content: + preoccupation and + cognitive distortions Suicidal Thoughts: denies suicidal thoughts Homicidal Thoughts: denies homicidal thoughts Hallucinations: + visual hallucinations; no auditory hallucinations Cognition: language grossly intact; + recent memory not intact (Asks the same questions repeatedly) and + attention not intact Insight: + fair insight Judgement: + fair judgement Vital Signs (Past 24 Hours) Last Vital Signs Temp 36.6 C 01/13/19 06:51 Pulse 79 01/13/19 06:52 Resp 20 01/13/19 06:51 BP 142/90 H 01/13/19 06:52 Pulse Ox 97 01/07/19 23:18 Results & Data Current Inpatient Medications Current Inpatient Medications: Current Inpatient Medications Acetaminophen (Tylenol) 650 mg PO Q4H PRN PRN Reason: Headache or Minor Fever Stop: 02/03/19 22:42 Last Admin: 01/12/19 17:48 Dose: 650 mg Documented by: Al Hydrox/Mg Hydrox/Simethicone (Maalox) 30 ml PO Q4H PRN PRN Reason: GI Upset Stop: 02/03/19 22:42 Bismuth Subsalicylate (Kaopectate) 15 ml PO PRN PRN PRN Reason: Loose Stool Stop: 02/03/19 22:42 Clonidine HCl (Catapres) 0.05 mg PO Q4H PRN PRN Reason: Hypertension Stop: 02/08/19 16:15 Last Admin: 01/09/19 16:42 Dose: 0.05 mg Documented by: Fluoxetine HCl (Prozac) 10 mg PO QAM LUPE Stop: 02/08/19 08:59 Last Admin: 01/13/19 08:56 Dose: 10 mg Documented by: Hydroxyzine HCl (Vistaril) 50 mg PO HSZ PRN PRN Reason: Insomnia Stop: 02/03/19 22:42 Last Admin: 01/12/19 22:16 Dose: 50 mg Documented by: Hydroxyzine HCl (Vistaril) 25 mg PO Q4H PRN PRN Reason: Anxiety Stop: 02/03/19 22:42 Last Admin: 01/12/19 17:50 Dose: 25 mg Documented by: Lamotrigine (Lamictal) 25 mg PO HS LUPE Stop: 02/07/19 21:59 Last Admin: 01/12/19 21:22 Dose: 25 mg Documented by: Losartan Potassium (Cozaar) 100 mg PO QAM LUPE Stop: 02/05/19 08:59 Last Admin: 01/13/19 08:56 Dose: 100 mg Documented by: Magnesium Hydroxide (Milk Of Magnesia) 30 ml PO DAILY PRN PRN Reason: Constipation Stop: 02/03/19 22:42 Propranolol HCl (Inderal La) 60 mg PO QAM LUPE Stop: 02/10/19 08:59 Last Admin: 01/13/19 09:26 Dose: 60 mg Documented by: Sodium Chloride ([place] Nasal) 1 - 2 sprays NA PRN PRN PRN Reason: Nasal Dryness/Congestion Stop: 02/03/19 22:42 Mental Health & Subst Abuse Tx Psychiatrist Name of Psychiatrist: Dawna Choi [facility] Psychiatrist's Date of Appointment with Psychiatrist: 01/26/19 Time of Appointment with Psychiatrist: 1:00 p.m. Psychiatric Appointment Comment: [address] [place] [address] Therapist Name of Therapist: Sera Munoz [facility] Therapist's Phone Number: [phone] Date of Therapist Appointment: 01/15/19 Time of Therapist Appointment: 1pm Therapy Appointment Comment: [address] [facility] [address] [place] Name of [place]: [facility] Phone Number for [place]: [phone] Post Discharge Appointments Primary Care Physician Name Of Family Doctor: HAR[facility] Date of Appointment with PCP: 01/20/19 Time of Appointment with PCP: 10:30 a.m. Provider Appointment Comment: [address] [facility] Specialist Name of Specialist: [facility] - Dr. Chung Phone Number for Specialist: [phone] Date of Appointment with Specialist: 01/20/19 Time of Appointment with Specialist: 4:10 p.m. Specialty Appointment Comment: [address] [facility] Contact Information Discharge Discharge [address]: [address] [place] [id number] (1) Hypertension Hypertension type: essential hypertension Qualified Code(s): I10 - Essential (primary) hypertension
[2019-01-13] MEDS: lamoTRIgine 25 MG TAB PO SCH (21:04)
--- NOTE | 2019-01-14 08:59 | Discharge Summary ---
Date of Service January 14, 2019 History of Present Illness Patient drove herself to the ER along with a hinduism friend reporting SI with thoughts to drive herself into a tree. She had picked out the tree she would use. She had recently been seen in the ER for abdominal pain, and was told to follow up with her urologist. On my assessment she reports she went off medication and stopped going to therapy earlier this year after her outpatient PERSONNEL ARBITRATOR left the practice, and her therapist also left and she didn't like the new therapist. She reports feeling overwhelmed with her medical problems, stating every time she went to see her doctor "it was something else, another vital organ." States she was diagnosed w ith cirrhosis and decided to stop her Cymbalta several months ago after she saw that it could cause liver damage. Since then her mood has worsened, states "I thought it didn't, but everyone else said it did. I knew my mood wasn't where it should be." Sleep has worsened over the past week and a half, and appetite has been down with 30lb weight loss. 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 Reports she stopped going to outpatient psychiatric treatment after her previous PERSONNEL ARBITRATOR retired, stating she didn't want to talk to someone else. She is fearful of taking any medications, worries about side effects and her liver. She reports taking her BP meds and states BP is usually well controlled, "but gets high when I'm not feeing well." She denies recollection of manic or hypomanic episodes, but is aware she has been diagnosed with bipolar II. She states she "tried to go back on the duloxetine, was on it for 5 days earlier this month (can't give timeline), and thinks it might have caused her to feel suicidal. She repeatedly answers "I don't know, I"m just tired. Everything seems to be out of control, and I don't know how to cope." She has not been sleeping well and thinks it is causing trouble thinking and functioning. Denies paranoia, AVH, OCD, and PTSD. Physical Exam Psychiatric Orientation: alert, oriented x 3 and cooperative Apperance: appropriately dressed, appropriately groomed and appeared stated age Eye Contact: + fair eye contact Motor Behavior: steady gait and station and no abnormal motor movements Speech: normal rate/rhythm/volume of speech Affect: mood congruent with affect mildly depressed, but smiles appropriately, brightens at times "better, but a little scared" Thought Process: goal directed thought process and linear/logical thought process Thought Content: reality based without delusions Suicidal Thoughts: denies suicidal thoughts Homicidal Thoughts: denies homicidal thoughts Hallucinations: no auditory hallucinations and no visual hallucinations Cognition: recent memory grossly intact, attention grossly intact and language grossly intact Insight: + fair insight Judgement: + fair judgement Vital Signs (Past 24 Hours) Last Vital Signs Temp 36.6 C 01/14/19 06:42 Pulse 66 01/14/19 06:43 Resp 20 01/14/19 06:42 BP 125/78 01/14/19 06:43 Pulse Ox 97 01/07/19 23:18 Principal Diagnosis Bipolar disorder type II, most recent episode depression Generalized anxiety disorder Chronic insomnia/untreated sleep apnea Psychiatric Data The patient was hospitalized for 10 days. She presented with worsening mood, anxiety, and suicidal ideation in the context of noncompliance with treatment of both her mental health and medical conditions. Outpatient records were reviewed, and she had been stable for years on low-dose duloxetine, so 20 mg daily was started on admission. She had never taken a mood stabilizer, but had a history of manic symptoms on an SSRI in the past, and had been destabilized on higher doses of duloxetine. She was very resistant to medication additions and dose increases, stating that she did not really like to take medications, which had led to her going off of her prescribed medications in the past. She was switched to fluoxetine 10 mg daily on 01/07/2019, as she felt worse after receiving 2 doses of duloxetine and was worried that the medication was exacerbating her symptoms. She also agreed to a trial of lamotrigine for mood stabilization and was started on 25 mg daily. She tolerated these medications well, but required frequent reassurance, and was provided with extensive education about them. Other medication options were suggested, including buspirone, but she declined and was often irritated and easily overwhelmed by discussions about medication. On admission, her home dose of Cozaar was resumed for hypertension, but blood pressure remained elevated, as high as 160/101, and the hospitalist service was consulted for recommendations. They initially recommended monitoring, as elevated blood pressure could be due to anxiety, with clonidine as needed for hypertension. Blood pressure remained persistently elevated, so she was started on propranolol, with normalization of blood pressure. She was continued on hydroxyzine as needed for insomnia, and continued to report suboptimal sleep. She admitted she had been noncompliant with her CPAP at home, and had a trial of CPAP in the hospital, but refused to continue it as she felt it was uncomfortable. She was provided with education about sleep hygiene and the need to treat her sleep apnea, and outpatient appointment with sleep medicine was confirmed for reevaluation. She had a family meeting with her friend Emily on 01/09/2019, who was supportive. They discussed her stressors, including her housing situation, as she does not like her trailer and described it is extremely cluttered. She did identify a friend who was willing to clean her trailer for her while she was in the hospital. She is also on the section 8 housing list as she hopes to eventually move out of the trailer. Alternative housing options were explored, but the patient was unable to state her budget or preferences for alternative housing. She demonstrated difficulties accepting responsibility for improving her health, both mental and physical, instead externalizing responsibility. She attended and participated in groups and therapy, was able to work on healthy coping skills and her discharge safety plan. Mood, anxiety, irritability, and sleep all improved. Suicidal ideation resolved. Although she often reported having few fr iends/supports, she had many visitors during her hospital stay who appeared quite supportive. She was referred for outpatient psychiatric care, therapy, and case management services, and ways to increase socialization and structure were discussed with her at length. She expressed anxiety about returning to her trailer, and ultimately contacted a friend and made a plan to stay with her temporarily after discharge. She had significant anxiety about discharge, which improved over her last few days on the unit with targeted therapy and interventions. Day of Discharge Assessment Staff report the patient slept well last night, 8.75 hours. On my assessment she reports mood is "better," and denies SI. She states she is "a little nervous" about discharge, specifically that she won't be able to sleep. She has completed her safety plan, and is able to review it in detail. States she has "learned a lot here" and feels she has many more healthy coping skills. Also reviewed sleep hygiene and her plan for if she is having trouble sleeping. She is planning to go stay with her friend for a week or so while her trailer is cleaned out, stating it was very cluttered but is currently being cleaned out by a friend of hers. She states she is looking forward to being out of the hospital, and agrees to follow up as an outpatient. 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 Reviewed her new medications in detail, and she continues to express dislike of medications and at one point states she's "not sure" if she'll continue to take the propranolol, as "I have issues with meds." Risks, benefits, side effects, and risks of untreated bipolar disorder, anxiety, and HTN were discussed, and she was encouraged to work with her PCP to consolidate to one antihypertensive if possible. Transition of Care Transition Of Care Record: was reviewed with the patient Advance Directives Advance Directives Information Provided: Yes Advance Directives: No Mental Health Advance Directive: No Advance Directives on File: No Living Will: No Power of Director Loss Prevention: No Advance Directives Reason:: Declines as Mental Health Visit. Risk Factors Assessment Risk factors were mitigated by admission to the inpatient unit, use of medications to target bipolar depression, anxiety, insomnia, and hypertension, addressing both medical and mental health issues, involving her in groups and therapy, working on healthy coping skills and a discharge safety plan, involving her outpatient supports, referring her for outpatient mental health care, co ordinating care with her multiple physicians, and working on ways to increase socialization and structure at home. She has demonstrated improvement in mood, anxiety, and sleep, is tending to ADLs independently, consistently denying suicidal thoughts, and stating willingness to follow up with outpatient treatment. She has a history of repeated noncompliance with treatment, and has been provided with extensive education and motivational interviewing regarding the risks of nonadherence, and expresses understanding. She is able to review her safety plan, and denies acute safety concerns. She is no longer at acute risk of harm to herself, so can be managed as an outpatient at this time. She does not have risk factors for harm to others. Male: No : Yes Do You Have Access To A Gun?: No Health Problems: Yes Mental Health Diagnoses: Yes Substance Use Disorders: No Previous Attempt: Yes Previous Attempt; Didn't Tell Anyone: Yes Family History of Suicide: No Previous Psychiatric Hospitalization: No Hopelessness: Yes Smoker: No Protective Factors Assessment Scientology Beliefs: Yes : No Responsible for Young Children: No Employed: No Stable Relationships: Yes Supportive Family: No Good Rapport with Provider: No Tobacco Cessation at Discharge Tobacco Cessation Medication Prescribed at Discharge: Not Applicable/Non-Smoker Total Time Total Time Spent: Greater Than 30 Minutes Total Time Includes: Examination of the patient, Discharge Planning and Medication Reconciliation Discharge Data Consultations 01/05/19 13:04 Consult Hospitalist Routine 01/10/19 11:51 Consult HARLEEN cement mixer Routine Lab Results 01/04/19 01/04/19 01/04/19 15:45 15:45 16:41 WBC 10.91 H RBC 5.48 H Hgb 16.4 H Hct 47.5 H MCV 86.7 MCH 29.9 MCHC 34.5 RDW Std Deviation 42.4 RDW Coeff of Ne 13.2 Plt Count 212 MPV 9.9 Immature Gran % (Auto) 0.1 Neut % (Auto) 56.2 Lymph % (Auto) 32.2 Pettis % (Auto) 9.2 Eos % (Auto) 1.6 Baso % (Auto) 0.7 Immature Gran # (Auto) 0.01 Neut # (Auto) 6.13 Lymph # (Auto) 3.51 H Pettis # (Auto) 1.00 H Eos # (Auto) 0.18 Baso # (Auto) 0.08 Sodium Potassium Chloride Carbon Dioxide Anion Gap BUN Creatinine Est Cr Clr Drug Dosing Est GFR ( Amer) Est GFR (Non-Af Amer) BUN/Creatinine Ratio Glucose Calcium Total Bilirubin AST ALT Alkaline Phosphatase Total Protein Albumin Globulin Albumin/Globulin Ratio TSH Urine Color Dark Yellow Urine Appearance Cloudy A Urine pH 5.5 Ur Specific [place] 1.024 Urine Protein Trace H Urine Glucose (UA) Negative Urine Ketones Trace H Urine Blood Negative Urine Nitrite Negative Urine Bilirubin Negative Urine Urobilinogen Negative Ur Leukocyte Esterase 1+ H Urine WBC (Auto) 5-10 H Urine RBC (Auto) 5-10 H U Hyaline Cast (Auto) 5-10 H U Epithel Cells (Auto) >30 H Urine Bacteria (Auto) 1+ H Salicylates Urine Opiates Screen Neg Ur Methadone, Qual Neg Acetaminophen Urine Barbiturates Neg Ur Phencyclidine (PCP) Neg U Amphetamin/Meth Scrn Neg MDMA (Ecstasy) Screen Neg U Benzodiazepines Scrn Neg Ur Cocaine Metabolite Neg U Marijuana (THC) Screen Neg Ethyl Alcohol mg/dL 01/04/19 01/04/19 01/04/19 16:41 16:41 16:41 WBC RBC Hgb Hct MCV MCH MCHC RDW Std Deviation RDW Coeff of Ne Plt Count MPV Immature Gran % (Auto) Neut % (Auto) Lymph % (Auto) Pettis % (Auto) Eos % (Auto) Baso % (Auto) Immature Gran # (Auto) Neut # (Auto) Lymph # (Auto) Pettis # (Auto) Eos # (Auto) Baso # (Auto) Sodium 136 Potassium 3.7 Chloride 102 Carbon Dioxide 29 Anion Gap 5.0 BUN 20 H Creatinine 0.98 Est Cr Clr Drug Dosing 68.3 Est GFR ( Amer) 70.2 Est GFR (Non-Af Amer) 60.5 BUN/Creatinine Ratio 20.7 H Glucose 109 H Calcium 9.6 Total Bilirubin 0.9 AST 19 ALT 23 Alkaline Phosphatase 77 Total Protein 7.6 Albumin 4.1 Globulin 3.5 Albumin/Globulin Ratio 1.2 TSH 1.860 Urine Color Urine Appearance Urine pH Ur Specific [place] Urine Protein Urine Glucose (UA) Urine Ketones Urine Blood Urine Nitrite Urine Bilirubin Urine Urobilinogen Ur Leukocyte Esterase Urine WBC (Auto) Urine RBC (Auto) U Hyaline Cast (Auto) U Epithel Cells (Auto) Urine Bacteria (Auto) Salicylates < 1.7 L Urine Opiates Screen Ur Methadone, Qual Acetaminophen < 2 L Urine Barbiturates Ur Phencyclidine (PCP) U Amphetamin/Meth Scrn MDMA (Ecstasy) Screen U Benzodiazepines Scrn Ur Cocaine Metabolite U Marijuana (THC) Screen Ethyl Alcohol mg/dL < 3.0 01/10/19 01/10/19 07:17 07:17 WBC 7.44 RBC 5.09 Hgb 15.0 Hct 44.5 MCV 87.4 MCH 29.5 MCHC 33.7 RDW Std Deviation 42.9 RDW Coeff of Ne 13.4 Plt Count 168 MPV 9.8 Immature Gran % (Auto) Neut % (Auto) Lymph % (Auto) Pettis % (Auto) Eos % (Auto) Baso % (Auto) Immature Gran # (Auto) Neut # (Auto) Lymph # (Auto) Pettis # (Auto) Eos # (Auto) Baso # (Auto) Sodium 139 Potassium 4.8 Chloride 105 Carbon Dioxide 32 Anion Gap 2.0 L BUN 23 H Creatinine 0.95 Est Cr Clr Drug Dosing 65.7 Est GFR ( Amer) 72.8 Est GFR (Non-Af Amer) 62.9 BUN/Creatinine Ratio 24.1 H Glucose 93 Calcium 9.3 Total Bilirubin 0.6 AST 13 L ALT 25 Alkaline Phosphatase 69 Total Protein 6.5 Albumin 3.5 Globulin 3.0 Albumin/Globulin Ratio 1.2 TSH Urine Color Urine Appearance Urine pH Ur Specific [place] Urine Protein Urine Glucose (UA) Urine Ketones Urine Blood Urine Nitrite Urine Bilirubin Urine Urobilinogen Ur Leukocyte Esterase Urine WBC (Auto) Urine RBC (Auto) U Hyaline Cast (Auto) U Epithel Cells (Auto) Urine Bacteria (Auto) Salicylates Urine Opiates Screen Ur Methadone, Qual Acetaminophen Urine Barbiturates Ur Phencyclidine (PCP) U Amphetamin/Meth Scrn MDMA (Ecstasy) Screen U Benzodiazepines Scrn Ur Cocaine Metabolite U Marijuana (THC) Screen Ethyl Alcohol mg/dL Hospital Course (1) Suicidal ideation: Q 15 min checks for safety Work on healthy coping skills and discharge safety plan. 01/06 - Pt denies SI today, but admits to inability to contract for safety outside of the hospital setting 01/07 - Pt endorses SI this morning, with consideration to "drown myself or stab myself" - Is not able to contract for safety and admits, "I'm at my wit's end" 01/08 -The patient continues to describe feeling hopeless and helpless. She acknowledges ongoing thoughts of suicide, including thoughts of stabbing herself and drowning herself,as well as deliberately driving her car at full speed into a stationary object such as a tree. -She is unable to contract for safety in the community. She does tell us that she does not have any current thoughts of physically harming herself in the hospital, although she also says that she cannot guarantee that such thoughts will emerge. She does, however, promised that she will let us know if such thoughts developed during the hospital stay and prior to actually acting on them. 01/09/2019 -Patient appears more irritable today but denying active suicidal ideation this morning which she attributes to improved sleep last night. Remains at elevated risk if discharged prematurely 01/10/2019 -Less irritable, more calm and pleasant today. Denying suicidal ideation today 01/11 - Pt is not able to convincingly deny SI today - stating "I'm afraid, I'm afraid of myself." - When asked if she is suicidal, she reported "I can't really say, I'm not sure." (2) Bipolar II disorder: 01/05 - Reviewed OP records from [facility], diagnosed bipolar II and h/o manic symptoms on citalopram, but did the best on duloxetine 30mg daily (stable for years, and helped chronic pain). Reviewed risks, benefits and side effects and patient agreed to resume. Also discussed lurasidone (states she can't afford it), as well as lamotrigine. - Consider addition of mood stabilizer (lamotrigine?) - Collateral information from friends/supports, family meeting if indicated. - Refer for OP treatment. - Encourage group attendance and participation. 01/06 - Continue duloxetine 20mg daily - Reviewed recommendation to trial lamotrigine as mood stabilization agent, given it is a weight neutral and rather inexpensive option - Pt requesting information and was provided with an UpToDate patient handout, asking to discuss again tomorrow - Encourage group participation - Continue to arrange aftercare 01/07 -The diagnosis of bipolar disorder was evidently based on the opinion of her previous outpatient provider, individual who is quite familiar with the patient and her illness. Although the patient does not independently provide a clear history consistent with the diagnoses of ramona or hypomania, what is quite clear is that she has a long-standing history of difficulty regulating her mood, particularly when issues of abandonment may arise. -For the above reason we have begun the patient on lamotrigine 25 mg daily, and will titrate this dose on a semilunar basis, as indicated and tolerated. Material risks of lamotrigine, including but not limited to's sedation and Coleman-Tenzin syndrome were reviewed with the patient by Dr. Vance. She asked a number of questions, and approached several staff members for additional information. Following formal review with Dr. Vance today she agreed to begin lamotrigine. -The patient's primary mood symptom appears to be depression, and with the addition of a mood stabilizing agent we plan to pursue antidepressant treatment. Because of the possible negative placebo effect now associated with duloxetine and the patient reports that this medication has been causing her to be "more depressed" and more suicidal, we recommended fluoxetine 10 mg daily, to be titrated as indicated. We feel that the choice of fluoxetine has the advantage of being a long-acting antidepressant medication that may allow the patient to intentionally or intermittently "skip" dosages without significant negative therapeutic disadvantage. Also, we are struck by the obsessive nature of the patient's approach to all decisions ("analysis paralysis") and, hopefully, at a standard dose of fluoxetine may assist the patient her obsessive thinking. Material risks and anticipated benefits of fluoxetine were reviewed with the patient and after asking a number of questions and after asking us to please start at a low dose, the patient indicated understanding and agreement. 01.07 - Continue current treatment regimen - reviewed again recommendation to initiate lamotrigine, patient presents as anxiety and overwhelmed with decision, but is not able today to consent to initiation of medication - She questions desire to continue duloxetine, but has difficulty tolerating conversation about recommended treatment due to level of anxiety - Current recommendation is to add lamotrigine to current dosage of duloxetin e - patient considering sertraline or paroxetine should she desire to change antidepressant medications - Pt has historically responded best to medication recommendations not feeling pressured, but likely requires clear and simple recommendations at this time given severity of anxiety 01/09/2019 -Patient was started on Lamictal and Prozac yesterday. More irritable this morning, possibly associated with discontinuation of duloxetine as irritability preceded Prozac first dose and felt unlikely medication side effect sister with Lamictal last evening. In setting of irritability, I feel Prozac might not be the best option for her as it can be problematically activating and the half- life is very long such that it can be difficult to stop quickly if necessary. I suggested we consider something a little more calming, such as buspirone, however she appeared overwhelmed by all the medication changes and refused but agreed to consider another change tomorrow 01/10/2019 -Reviewed importance of regular sleep for mood stability. Suggested we trial prazosin at a low dose which may help sleep onset due to sedating nature but no additional risk for sleep apnea and may help with her hypertension as well. She agreed to consider it but was not ready to commit to a new medication trial 01/11 - Continue current medication regimen, revisited the idea of prazosin, but again patient was not able to commit to additional medication changes as recommended 01/12 -Denies side effects thus far with medications, but very anxious about further titration or addition of other medications as she feels this is ""too much to do at once." 01/13 -Nausea and vomiting today, will not change medications as patient is very concerned about side effects and tends to blame medications for her multiple somatic symptoms. (3) Anxiety: TAL - resume SNRI, engage in therapy, work on healthy coping skills. 01/07 - Continue to utilize hydroxyzine prn for acute anxiety - Encourage development of healthy coping strategies, encourage participation in group programming 01/09/2019 -More irritable this morning. Considering BuSpar trial. Recommended she ut ilize the hydroxyzine as needed throughout the day 01/10/2019 -Continue hydroxyzine as needed for insomnia 01/12 -Continue working on behavioral techniques for managing anxiety, identifying and correcting cognitive distortions, and healthy coping skills. 01/13 -Patient very anxious about how to manage her insomnia and perception of poor sleep. Reviewed sleep hygiene in detail, encouraged her to get daily physical activity, avoid caffeine, maintain stable bedtime, avoid screens at bedtime, and relaxation techniques to prepare for sleep. Also discussed developing a plan for what to do when she cannot sleep and making it part of her safety plan. Recommend that if she is not asleep after a set amount of time (1 hour), that she get out of bed and do something calm and relatively unstimulating (read a book, listen to music) until she again feels sleepy, then returning to bed. Also discussed the importance of ongoing treatment to address her anxiety, depression, and sleep apnea, as all of these things interfere with restful sleep. (4) Hypertension: 01/05 - Poorly controlled, resume home dose of Cozaar and monitor. Will need f/u with PCP 01/06 - Hospitalist consultation requested; appreciate recommendations - Suggested continuation of home dose of losartan 100mg, as HTN is felt to be related to anxiety - Given reported lightheadedness after receiving prn clonidine, it was suggested to reduce dose to 0.05mg prn - and utilize for systolic BP >160 01/07 - Continue as above - Recommendations for treatment of sleep apnea as below 01/08 -Begin Prozac 10 mg a day and titrate as indicated. The patient has been advised this medication may be expected to assist with anxiety. 01/09/2019 -We appreciate input from medical service. Per medical progress note 01/08/2019 clonidine prn discontinued by hospitalist and low-dose amlodipine initiated, however it appears the amlodipine was discontinued and propranolol LA 60 mg daily started instead. -Reviewed risks of uncontrolled hypertension with patient today. She demonstrated an illogical belief that medication recommendations are being, at least in part, driven by "bureaucracy" which likely impacts her willingness to comply with treatment recommendations 01/10/2019 Blood pressure improved this morning. Appreciate hospitalist follow-up. Propranolol increased to 80 mg daily this morning. She did receive a clonidine pr dose for blood pressure elevation yesterday. Hopefully the clonidine will soon no longer be needed with titration of the beta-steve. 01/12 -Blood pressure remains intermittently elevated, but has come down overall, and this morning was 138/84. (5) Sleep apnea: 01/05 -patient reports diagnosis of obstructive sleep apnea and is prescribed CPAP, but has been noncompliant with it for years. Sleep is chronically poor and this is likely contributing to depression. She is aware that she needs to resume, and reports having an appointment with a sleep physician at [facility] next month. 01/07 - Reviewed recommendations from hospitalist team - Hospitalists have coordinated with respiratory to begin CPAP this evening - Pt placed on MNPR as per protocol for oxygen, per protocol she will also require 1:1 over night - Keep sleep medicine appointment next month for review 01/08 -The patient was unable to tolerate a CPAP last night and after a brief trial insisted on not wearing it. Subsequent to that, the patient was very anxious and had difficulty falling back to sleep. She is told us that she will refuse to wear her CPAP machine and is unwilling to consider alternative treatments at this time. CPAP was discontinued. 01/12 - Patient anxious about using CPAP, but concerned about her chronic poor sleep. Advised that it will be very important to find a way to use the CPAP, as this is going to be necessary for her to get healthy, restful sleep. Encouraged her to discuss the issues that she has been having with that with her sleep physician and to work toward ways to make it more tolerable. (6) Kidney mass: Follow-up with urologist, Dr. Chung, as recommended on 01/20/2019. (7) Nausea: 01/12/2019 -ondansetron previously effective, start 4 mg to 4 hours as ne eded. Mental Health & Subst Abuse Tx Psychiatrist Name of Psychiatrist: Dawna Choi [facility] Psych[facility]rist's Date of Appointment with Psychiatrist: 01/26/19 Time of Appointment with Psychiatrist: 1:00 p.m. Psychiatric Appointment Comment: [id number] [place] [address] Therapist Name of Therapist: Sera Munoz [facility], [facility] Therapist's Phone Number: [phone] Date of Therapist Appointment: 01/15/19 Time of Therapist Appointment: 1pm Therapy Appointment Comment: [address] [facility] [address] [employer] Cane Farm Manager Name of Sugar Cane Farm Manager: [facility] Phone Number for Sugar Cane Farm Manager: [phone] Post Discharge Appointments Primary Care Physician Name Of Family Doctor: HARLEEN [facility] Date of Appointment with PCP: 01/20/19 Time of Appointment with PCP: 10:30 a.m. Provider Appointment Comment: [phone] [facility] Specialist Name of Specialist: HARLEEN [facility] - Dr. Chung Phone Number for Specialist: [phone] Date of Appointment with Specialist: 01/20/19 Time of Appointment with Specialist: 4:10 p.m. Specialty Appointment Comment: [phone] [facility] Smoking Cessation Counseling Tobacco Cessation Medication Prescribed at Discharge: Not Applicable/Non-Smoker Contact Information Discharge Discharge Address: [address] [place] [address] Discharge Plan Discharge Items Patient Disposition: Home - Self-Care Reason For Visit: DEPRESSION NOS Discharge Diagnosis: Bipolar disorder type II, most recent episode depressed Generalized anxiety disorder Insomnia/Sleep apnea Activity: Per Instructions section Non-emergency contact: Primary Care Provider, Psychiatrist, Therapist and Messenger Office Call non-emergency contact if: you have any medication questions and your symptoms worsen Follow-up/Referrals: Vinicio Tamayo MD [Primary Care Provider] - Serena Vargas PA-C [Physician Past Due Accounts Clerk] - 03/22/19 1:00 pm (Please, follow up at [facility] Gastroenterology Office with Serena Vargas PA-C on FridayMarch 22 at 1:00 pm. *The office is located at [address] [place] [address] in [facility]. If you need to change this appointment, call the office at [phone].) Diet: Regular Addtl Attending Provider Instructions: SPECIAL CARE INSTRUCTIONS: 1. Follow through with your scheduled aftercare appointments. If unable to keep an appointment, please call to reschedule. 2. Take your medication only as prescribed. Medication should not be changed or stopped without the approval of your doctor. In the event of worsening symptoms or concerns about side effects, contact your doctor immediately. You were started on lamotrigine (Lamictal) for mood stabilization. You have been on 25mg daily for one week, and will need to take that dose for another week, after which increase to 50mg daily. You were started on propranolol for high blood pressure. Follow up with your PCP for treatment of hypertension. 3. Utilize new healthy coping skills, anger management skills, and stress management skills learned during your hospitalization. Journal feelings and process them with a support person. Identify stressors or situations that may result in relapse, deterioration or inappropriate behaviors and develop a plan to deal with those issues. 4. If your coping skills are ineffective and you are in crisis, contact your outpatient providers for direction. If unable to reach your providers, please call the CAN HELP LINE AT or go to the closest Emergency Room. 5. Avoid alcohol and un-prescribed drugs. 6. You have been provided with the Mental Health Advance Directives Pamphlet for your review. AFTERCARE APPOINTMENTS: * Please call your insurance company prior to your scheduled appointment to confirm your aftercare providers are covered. Take your insurance information to your appointments. WHO TO CALL AND WHEN: Medical Emergencies: For questions or emergencies related to your hospital stay, please contact the Inpatient Behavioral Health Unit at [phone]. A audit tech is on-call 07/10 for the Behavioral Health Unit for emergencies At any time you feel your situation is an emergency, you may also call 911 immediately. Your Doctors Instructions noted above were prepared by provider Faye Pettit MD. Pending Studies at Discharge: No Stand-Alone Forms: My [facility] [address] [facility], Smoking Cessation Medications and DC Order Prescriptions: New propranolol 60 mg Capsule,Extended Release 24 Hr 60 mg PO QAM Qty: 30 RF: 0 lamotrigine [Lamictal] 25 mg Tablet 25 mg PO HS Qty: 49 RF: 0 fluoxetine 10 mg Capsule 10 mg PO QAM Qty: 30 RF: 0 Continued hydroxyzine HCl 10 mg tablet 10 - 20 mg PO HS PRN (Reason: sleep) 10 Days Qty: 20 RF: 0 vitamin B complex [B Complex-Vitamin B12] tablet 1 tab PO QAM RF: 0 losartan [Cozaar] 100 mg tablet 100 mg PO QAM RF: 0 Discontinued duloxetine [Cymbalta] 30 mg capsule,delayed release(DR/EC) 30 mg PO DAILY RF: 0 Discharge Orders: Discharge Order (Routine); Ordered 01/14/19 Ordered By: Faye Pettit Admission Data Admit Date/Time: 01/04/19 21:31 Attending Provider: Faye Pettit Admit Provider: Faye Pettit Primary Care Provider: Vinicio Tamayo V. Other Providers: Ebony Ortiz ; Sera Paez ; Waqar Burris ; Damian Sandhu ; Cathleen Coleman ; Elijah Trimble ; Dallas Alonzo ; Win Nava ; Julia Hurst ; Mary Nava ; Ivette Pagan ; Neal Cortes ; Lakisha Tanner ; Andre Chung ; Rodrigo Hunt ; Ebony Knight ; Michael Husain ; Ann Correa ; Micki Weiss ; Vitaliy Maurice ; Waqar Hernandez ; Marcus Sy ; Judy Vlea ; Julius Ford ; Steven Horn ; Indigo Mcfarland ; Jerardo Lester ; Anival Covarrubias Coding Level of Care Code 09769 D/C day mgmt > 30 min Diagnoses Suicidal ideation R45.851 Bipolar II disorder F31.81 Anxiety F41.9 Hypertension I10 Hypertension type: essential hypertension Sleep apnea G47.30 Kidney mass N28.89 Nausea R11.0
[2019-01-14] MEDS: LOSARTAN POTASSIUM 25 MG TAB PO SCH (09:10)
[2019-01-14] MEDS: PROPRANOLOL HCL 60 MG LA CAP PO SCH (09:10)
[2019-01-14] MEDS: FLUOXETINE HCL 10 MG CAP PO SCH (09:10)
== END 2019-01-14 13:35 | disposition home or self-care (01) | DRG 885 ==
LOC: ED 15:04 → 3S 21:31

== ENCOUNTER 2020-03-14 09:53 | Inpatient (IN) ==
--- NOTE | 2020-03-14 10:26 | Emergency Department Note ---
Impression & Plan Near syncope, Dizziness, Mood disorder, Hypokalemia, Elevated LFTs ED Provider Note INFORMANT: Patient ED PROVIDER(S): Fortino Muir MD CHIEF COMPLAINT: Near syncope PLAN: Disposition: Admitted Condition: Good MEDICAL DECISION MAKING: Patient presented to emergency department because of near syncope. On her examination she was very depressed. She was hydrated. Laboratory testing was performed. EKG did not reveal any acute findings. CT imaging of the head was negative. Her laboratory findings revealed significant hypokalemia and elevated LFTs. Ultrasound imaging showed biliary sludge but no signs of cholecystitis. Given the hypokalemia, weakness, and her mood disorder, she would benefit from inpatient treatment. I discussed this with the hospitalist. I believe she would also benefit from psychiatric consultation. She has signs of depression. She has a 40 pound weight loss in the last few months. The case was discussed with . Patient was evaluated in the ER for admission. Triage Nursing notes reviewed and agree them. Vital Signs: reviewed and remarkable for no significant abnormalities Differential diagnosis: Benign positional vertigo, dehydration, hypovolemia, anemia, tumor, infection, hypoglycemia, electrolyte abnormalities, cardiac sources, intracerebral event, toxicologic, neurologic, as well as other pathologies. Diagnostics interpreted by me: ECG: Rate:86 Rhythm:Normal sinus [place]:Normal QRS:Normal ST segements:No elevation or depression. NST changes laterally Other:No PACs or PVCs Cardiac Monitoring: Cardiac monitoring ordered by me: The patient was placed on continuous cardiac monitoring and observed. It revealed a normal sinus rhythm at 82 beats per minute without ectopy or evidence of dysrhythmia. Imaging studies: Head CT: A noncontrast CT scan of the head was performed and was negative for tumor, fracture, intracranial hemorrhage, or other acute pathology. Consultation(s): [facility] service HPI: The patient is a 64 year old female who presents to the Emergency Room with complaints of near syncope. This started this morning and is currently resolved. The patient also notes the following associated symptoms, poor sleep, poor appetite, low energy, no initiative, weight loss, irritable bowels, fatigue. The patient has found no relieving factors. Current pain is rated as 0/10. Patient does not feel that she hurt herself when she got dizzy and fell. She states that she was moving [facility] a [facility]. She feels like she has been under a lot of stress. She denies suicidal ideation or HI. Pt denies LOC, headache, fevers, chills, diaphoresis, visual changes, neck pain, chest pain, breathing difficulties, nausea, vomiting, abdominal pain, back pain, melena, hematochezia, urinary symptoms, numbness, focal weakness, lymphadenopathy, rash, or other complaints. ROS: See above HPI for pertinent positives & negatives. A total of 10 systems reviewed and were otherwise negative. PAST MEDICAL HISTORY:See Below, hypertension, depression GERD, fibromyalgia, IBS PAST SURGICAL HISTORY:See Below, FAMILY HISTORY:See Below SOCIAL HISTORY:See Below, lives alone HOME MEDICATIONS:See Below ALLERGIES:See Below VITALS:See Below PHYSICAL EXAMINATION: GENERAL: Awake, alert, depressed-appearing, in no distress HENT: Normocephalic, atraumatic. Oropharynx unremarkable. EYES: Normal conjunctiva. Sclera non-icteric. PERRLA. EOMI. NECK: Inspection normal. Non-tender. Supple. No nuchal rigidity. FROM. No masses. RESPIRATORY: Clear to auscultation. No wheezes. No rales. Normal respiratory effort. CARDIAC: Normal rate. Normal rhythm. No murmurs. No rubs. Extremities warm and well perfused. Pulses equal. No JVD. GI: Soft, non-distended. No tenderness to palpation. No rebound or guarding. No masses. RECTAL: Deferred. MUSCULOSKELETAL: Atraumatic. Chest examination reveals no tenderness. The back is symmetrical on inspection without obvious abnormality. There is no CVA tenderness to palpation. No joint edema. LOWER EXTREMITIES: Calves are equal size bilaterally and non-tender. No edema. No discoloration. NEURO: Normal sensorium. No sensory or motor deficits noted. Oriented. Speech soft. Cranial nerves II through XII intact. No nystagmus. No drift. SKIN: No rash or jaundice noted. PSYCH: No HI or SI. Severely depressed mood. Flat affect. Very soft low volume speech. Easily distracted. No hallucinations. Fortino Muir MD Past Med/Surg History Medical History (Updated 03/14/20 @ 18:51 by Fortino Muir MD) Abdominal pain Angiomyolipoma of right kidney Anxiety Arthralgia Calcium nephrolithiasis Cirrhosis, nonalcoholic Depression Diverticulosis Fatty liver Fibromyalgia Gastroesophageal reflux disease without esophagitis Hypertension Insomnia Internal hemorrhoids IPMN (intraductal papillary mucinous neoplasm) Irritable bowel syndrome Kidney mass Kidney stone (2015) Macular edema of left eye Nausea Prediabetes Sarcoidosis of lung Suicidal ideation Tingling Vitamin D deficiency Surgical History H/O tooth extraction H/O: hysterectomy Hx of cystoscopy With Ureteroscopy With Manipulation Of Calculus Family History Mother Coronary heart disease Skin cancer Diabetes Hypertension History of nephrolithiasis Acute myocardial infarction Colon cancer Myocardial infarction Unknown Heart disease Diabetes Hypertension History of nephrolithiasis Sister Diabetes Father Hypertension Acute myocardial infarction Myocardial infarction Unknown Hypertension Brother Hypertension Malignant neoplasm of kidney Aunt Colon cancer Denies family history of Ovarian cancer Prostate cancer Breast cancer Social History Smoking Status: Never smoker Second Hand Exposure: No; Do You Dip or Chew Tobacco: No; Hx Alcohol Use: No Hx Substance Use: No Preferred Language: Prydeinig Communication Ability: Effective Visual Impairment: No Limitations Hearing Ability: Normal Roller Skate Repairer Required: No Beliefs That Will Affect Care: Spiritual Spiritual Healthcare Practices: Jehoviah Witness/no blood of any form transfused marital status: Single Current Living Situation: Alone current occupational status: disabled Feels Safe at Home: Yes Safety Concerns: Feels Safe At This Time Childhood Exposure to Second-Hand Smoke: No Dental Care, Regularly: Yes Physical Activity Frequency: Does not Exercise Seatbelt Use: always Sunscreen Use: No Assistive Devices: Glasses Allergies Allergies Allergy/AdvReac Type Severity Reaction Status Date / Time Thiazides Allergy Severe SOB, Verified 03/14/20 11:33 hives, rash omeprazole Allergy Intermediate joints hurt Verified 03/14/20 11:33 prednisone Allergy Intermediate FACIAL Verified 03/14/20 11:33 NUMBNESS AND DIZZINESS trazodone AdvReac Severe suicidial Verified 03/14/20 11:33 idealations gabapentin AdvReac Verified 03/14/20 11:33 topiramate [From Topamax] AdvReac Verified 03/14/20 11:33 Home Meds Home Medications Medication Instructions Recorded Confirmed aripiprazole 2 mg tablet 2 mg PO QAM 06/18/19 03/14/20 propranolol 20 mg tablet 10 mg PO QAM tab 11/19/19 03/14/20 Previous Rx's Medication Instructions Recorded hydroxyzine HCl 10 mg tablet 10 - 20 mg PO HS PRN 10 Days #60 01/20/19 tab losartan 100 mg tablet 100 mg PO QAM #90 tab 05/19/19 Results & Data (ED) Vital Signs Vital Signs - 24 hr 03/14/20 09:57 03/14/20 10:08 03/14/20 10:15 Temperature 36.5 C Temperature Source Oral Pulse Rate 85 86 83 Pulse Rate from SpO2 Sensor 82 Pulse Rhythm Regular Regular Pulse Strength Normal Respiratory Rate 22 20 18 Respiratory Effort / Characteristics Non-Labored Spontaneous Respiratory Depth Normal Respiratory Pattern Regular Blood Pressure 121/80 121/80 Blood Pressure Mean 99 93 Pulse Oximetry 93 96 96 Oxygen Delivery Method Room Air Room Air Sepsis Recent Fever Within 48 Hours No Sepsis New/Unexplained Change in Mental Status N/A Sepsis Action Taken by Nursing No Action Required 03/14/20 10:16 03/14/20 10:30 03/14/20 10:45 Temperature Temperature Source Pulse Rate 83 82 82 Pulse Rate from SpO2 Sensor 83 81 Pulse Rhythm Regular Pulse Strength Respiratory Rate 15 21 21 Respiratory Effort / Characteristics Respiratory Depth Respiratory Pattern Blood Pressure Blood Pressure Mean Pulse Oximetry 96 97 97 Oxygen Delivery Method Room Air Sepsis Recent Fever Within 48 Hours Sepsis New/Unexplained Change in Mental Status Sepsis Action Taken by Nursing 03/14/20 11:00 03/14/20 11:01 03/14/20 11:30 Temperature Temperature Source Pulse Rate 84 79 103 H Pulse Rate from SpO2 Sensor 84 80 85 Pulse Rhythm Pulse Strength Respiratory Rate 24 20 22 Respiratory Effort / Characteristics Respiratory Depth Respiratory Pattern Blood Pressure 121/84 127/93 Blood Pressure Mean 95 106 Pulse Oximetry 96 95 98 Oxygen Delivery Method Sepsis Recent Fever Within 48 Hours Sepsis New/Unexplained Change in Mental Status Sepsis Action Taken by Nursing Laboratory Data Result diagrams: 03/14/20 10:00 03/14/20 10:00 Lab Results 03/14/20 03/14/20 03/14/20 Range/Units 10:00 10:00 10:00 WBC 6.95 (4.8-10.8) K/uL RBC 4.84 (4.2-5.4) M/uL Hgb 14.2 (12.0-16.0) g/dL Hct 39.9 (37-47) % MCV 82.4 (80-100) fL MCH 29.3 (25-34) pg MCHC 35.6 (32-36) g/dL RDW Std Deviation 44.3 (36.4-46.3) fL RDW Coeff of Ne 14.6 H (11.5-14.5) % Plt Count 280 (130-400) K/uL MPV 11.0 H (7.4-10.4) fL Immature Gran % (Auto) 0.1 % Neut % (Auto) 71.8 % Lymph % (Auto) 17.3 % Luna % (Auto) 9.2 % Eos % (Auto) 0.9 % Baso % (Auto) 0.7 % Neut # (Auto) 4.99 (1.4-6.5) K/uL Lymph # (Auto) 1.20 (1.2-3.4) K/uL Luna # (Auto) 0.64 H (0.11-0.59) K/uL Eos # (Auto) 0.06 (0-0.5) K/uL Baso # (Auto) 0.05 (0-0.2) K/uL Immature Gran # (Auto) 0.01 (0.00-0.02) K/uL Sodium 139 (136-145) mmol/L Potassium 2.9 L (3.5-5.1) mmol/L Chloride 104 (98-107) mmol/L Carbon Dioxide 23 (21-32) mmol/L Anion Gap 12.0 H (3-11) BUN 24 H (7-18) mg/dl Creatinine 1.27 H (0.6-1.2) mg/dl Est Cr Clr Drug Dosing 40.8 ml/min Est GFR ( Amer) 50.9 Est GFR (Non-Af Amer) 43.9 BUN/Creatinine Ratio 18.9 (10-20) Glucose 155 H (70-99) mg/dl Calcium 9.0 (8.5-10.1) mg/dl Phosphorus (2.5-4.9) mg/dl Magnesium 2.0 (1.8-2.4) mg/dl Total Bilirubin 2.1 H (0.2-1) mg/dl Direct Bilirubin (0-0.2) mg/dl AST 50 H (15-37) U/L ALT 100 H (12-78) U/L Alkaline Phosphatase 89 (45-117) U/L Total Creatine Kinase (26-192) U/L Troponin I 0.015 (0-0.045) ng/ml Total Protein 6.5 (6.4-8.2) gm/dl Albumin 3.1 L (3.4-5.0) gm/dl Globulin 3.4 (2.5-4.0) gm/dl Albumin/Globulin Ratio 0.9 (0.9-2) TSH 1.090 (0.300-4.500) uIu/ml Acetaminophen Cancelled 03/14/20 Range/Units 10:00 WBC (4.8-10.8) K/uL RBC (4.2-5.4) M/uL Hgb (12.0-16.0) g/dL Hct (37-47) % MCV (80-100) fL MCH (25-34) pg MCHC (32-36) g/dL RDW Std Deviation (36.4-46.3) fL RDW Coeff of Ne (11.5-14.5) % Plt Count (130-400) K/uL MPV (7.4-10.4) fL Immature Gran % (Auto) % Neut % (Auto) % Lymph % (Auto) % Luna % (Auto) % Eos % (Auto) % Baso % (Auto) % Neut # (Auto) (1.4-6.5) K/uL Lymph # (Auto) (1.2-3.4) K/uL Luna # (Auto) (0.11-0.59) K/uL Eos # (Auto) (0-0.5) K/uL Baso # (Auto) (0-0.2) K/uL Immature Gran # (Auto) (0.00-0.02) K/uL Sodium (136-145) mmol/L Potassium (3.5-5.1) mmol/L Chloride (98-107) mmol/L Carbon Dioxide (21-32) mmol/L Anion Gap (3-11) BUN (7-18) mg/dl Creatinine (0.6-1.2) mg/dl Est Cr Clr Drug Dosing ml/min Est GFR ( Amer) Est GFR (Non-Af Amer) BUN/Creatinine Ratio (10-20) Glucose (70-99) mg/dl Calcium (8.5-10.1) mg/dl Phosphorus 3.1 (2.5-4.9) mg/dl Magnesium (1.8-2.4) mg/dl Total Bilirubin (0.2-1) mg/dl Direct Bilirubin 1.0 H (0-0.2) mg/dl AST (15-37) U/L ALT (12-78) U/L Alkaline Phosphatase (45-117) U/L Total Creatine Kinase 44 (26-192) U/L Troponin I (0-0.045) ng/ml Total Protein (6.4-8.2) gm/dl Albumin (3.4-5.0) gm/dl Globulin (2.5-4.0) gm/dl Albumin/Globulin Ratio (0.9-2) TSH (0.300-4.500) uIu/ml Acetaminophen Administered Medications Aripiprazole (Aripiprazole 1 Mg/Ml Oral Soln 150 Ml Btl) 2 mg PO QAM LUPE Stop: 04/13/20 15:37 Last Admin: 03/14/20 17:03 Dose: 2 mg Documented by: [id number] Potassium Chloride (Potassium Chloride Crtab 20 Meq Tabcr) 20 meq PO TID LUPE Stop: 03/15/20 14:01 Last Admin: 03/14/20 14:58 Dose: 20 meq Documented by: [id number] Discontinued Medications Sodium Chloride (Nss) 500 mls @ 999 mls/hr IV .Q31M LUPE Stop: 03/14/20 11:00 Last Infusion: 03/14/20 12:00 Dose: 0 mls/hr Documented by: [id number] Admin: 03/14/20 10:54 Dose: 999 mls/hr Documented by: [id number] Sodium Chloride (Nss 1000ml) 1,000 mls @ 125 mls/hr IV .Q8H LUPE Stop: 03/14/20 18:29 Last Infusion: 03/14/20 18:39 Dose: 0 mls/hr Documented by: [id number] Admin: 03/14/20 10:54 Dose: 125 mls/hr Documented by: [id number] Potassium Chloride (K Jose Miguel / Wtr) 10 meq in 100 mls @ 100 mls/hr IV Q1H LUPE Stop: 03/14/20 13:29 Last Infusion: 03/14/20 14:00 Dose: 0 mls/hr Documented by: [id number] Admin: 03/14/20 12:57 Dose: 100 mls/hr Documented by: [id number] Infusion: 03/14/20 12:57 Dose: 100 mls/hr Documented by: [id number] Admin: 03/14/20 12:00 Dose: 100 mls/hr Documented by: [id number] Discharge Plan Visit Data Chief Complaint: Syncope (Near Syncope) ED Provider: Fortino Muir Discharge Problem: Near syncope, Dizziness, Mood disorder, Hypokalemia, Elevated LFTs Patient Disposition: Admitted As Inpatient
[2020-03-14] MEDS ORDERED: SODIUM CHLORIDE 0.9% 1000ML 1,000 ML IV SCH (10:30)
[2020-03-14] MEDS ORDERED: SODIUM CHLORIDE 0.9% 500 ML IV SCH (10:30)
[2020-03-14 10:31] LABS: Basophils # (auto) 0.05 K/uL (0-0.2); Basophils % (auto) 0.7 %; Eosinophils # (auto) 0.06 K/uL (0-0.5); Eosinophils % (auto) 0.9 %; Hematocrit (blood only) 39.9 % (37-47); Hemoglobin 14.2 g/dL (12.0-16.0); Immature Granulocytes # (auto) 0.01 K/uL (0.00-0.02); Immature Granulocytes % (auto) 0.1 %; Lymphocytes % (auto) 17.3 %; Mean Corpuscular Hemoglobin 29.3 pg (25-34); Mean Corpuscular Hgb Conc 35.6 g/dL (32-36); Mean Corpuscular Volume 82.4 fL (80-100); Monocytes # (auto) 0.64 K/uL (0.11-0.59); Monocytes % (auto) 9.2 %; Neutrophils # (auto) 4.99 K/uL (1.4-6.5); Neutrophils % (auto) 71.8 %; Platelet Count 280 K/uL (130-400); RDW Coefficient of Variation 14.6 % (11.5-14.5); RDW Standard Deviation 44.3 fL (36.4-46.3); Red Blood Count 4.84 M/uL (4.2-5.4); White Blood Count 6.95 K/uL (4.8-10.8)
--- NOTE | 2020-03-14 10:47 | XRay Report ---
SINGLE VIEW CHEST CLINICAL HISTORY: Generalized weakness. FINDINGS: An AP, portable, upright chest radiograph is compared to study dated 05/28/2019. Correlation is made with chest CT dated 04/01/2012. The cardiomediastinal silhouette is unremarkable. Joycelyn promin ence is unchanged. Hazy interstitial opacities are seen throughout both lungs, and are similar to mul tiple prior examinations. No large pleural effusion or pneumothorax is seen. The skeletal structures are osteopenic. The bony thorax is grossly intact. IMPRESSION: Hazy interstitial opacities throughout both lungs have been present over several prior ex aminations and likely represent changes of chronic lung disease. There is no radiographic evidence of superimposed airspace consolidation or pleural effusion ACT 112: Negative or not required by law. Electronically signed by: Derick Quiñones M.D. 03/14/2020 10:45 AM
[2020-03-14 10:49] LABS: Albumin Level 3.1 gm/dl (3.4-5.0); BUN Creatinine Ratio 18.9 (10-20); Creatinine Clr Calc Pharmacy 40.8 ml/min; Est GFR (African American) 50.9; Est GFR (Non-African American) 43.9; Potassium 2.9 mmol/L (3.5-5.1)
--- NOTE | 2020-03-14 10:53 | CT Scan Report ---
CT SCAN OF THE BRAIN WITHOUT IV CONTRAST CLINICAL HISTORY: Dizziness. COMPARISON STUDY: CT of the brain dated 05/28/2019. TECHNIQUE: Unenhanced axial CT scan of the brain is performed from the vertex to the skull base. A do se lowering technique was utilized adhering to the principles of ALARA. CT DOSE: 614.27 mGy.cm FINDINGS: Brain parenchyma: There is mild subcortical and periventricular microangiopathic change. There is no hemorrhage, mass effect, or evidence of acute territorial ischemia by CT criteria. Hernandez-white matter differentiation is preserved. No extra-axial fluid collection is seen. Ventricles, sulci, cisterns: Normal in configuration. Intracranial vasculature: There is atherosclerotic calcification of the cavernous carotid and vertebr al arteries. Calvarium: Unremarkable. Sinuses and mastoids: The visualized paranasal sinuses are clear. The mastoid air cells are well pneu matized. Orbits: The bony orbits are grossly intact. IMPRESSION: There is no hemorrhage, mass effect, or evidence of acute territorial ischemia by CT fly de la paz. ACT 112: Negative or not required by law. Electronically signed by: Derick Quiñones M.D. 03/14/2020 10:51 AM
[2020-03-14 11:00] LABS: Albumin Globulin Ratio 0.9 (0.9-2); Bilirubin,Total 2.1 mg/dl (0.2-1); Globulin 3.4 gm/dl (2.5-4.0); Thyroid Stimulating Hormone 1.09 uIu/ml (0.300-4.500); Total Protein 6.5 gm/dl (6.4-8.2); Troponin I 0.015 ng/ml (0-0.045)
[2020-03-14] MEDS ORDERED: ONDANSETRON INJ 2 MG/ML 2 ML VIAL IV PRN (11:56)
[2020-03-14] MEDS: POTASSIUM CHLORIDE / WTR 10 MEQ/100 ML PLCT IV SCH ×2 (12:00→12:57)
--- NOTE | 2020-03-14 12:03 | Ultrasound Report ---
US gallbladder HISTORY: 64 years-old Female elevated LFTs acutely elevated LFTs COMPARISON: CT abdomen and pelvis 02/05/2020 TECHNIQUE: Multiple real-time sonographic images of the abdominal right upper quadrant were obtained assessing grayscale appearance and color flow FINDINGS: Study is limited secondary to obscuring bowel gas. Heterogeneous cirrhotic liver. No ascites No hepat ic mass or intrahepatic biliary ductal dilation. Mildly distended sludge-filled gallbladder. No shado wing cholelithiasis, bilateral wall thickening or pericholecystic fluid. Sonographic Burr sign repo rted as negative. Normal common bile duct, 5 mm. Pancreas is obscured by bowel gas. Mildly heterogeneous echogenic lesion of the right kidney with equivocal areas of central flow measur es 2.5 x 2.2 x 2.6 cm. IMPRESSION: 1. Mildly distended sludge-filled gallbladder. No cholelithiasis or sonographic evidence of acute cho lecystitis. 2. No biliary ductal dilation. 3. 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 4. Cirrhotic liver without ascites. ACT 112: Negative or not required by law. The above report was generated using voice recognition software. It may contain grammatical, syntax o r spelling errors. Electronically signed by: Kiran Pugh M.D. 03/14/2020 12:02 PM
--- NOTE | 2020-03-14 12:43 | History & Physical Report ---
Date of Service March 14, 2020 Assessment & Plan (1) Near syncope: Patient has history of syncope. Patient has been getting workeup as an outpatient. Patient though currently has electrolye abnormalities. Concern that patient is not eating well, (2) Fibromyalgia: (3) Cirrhosis, nonalcoholic: Per patient, with known history of fatty liver HIDA 07/06/18 was WNL CTAP on 12/31/18 without bowel obstruction or acute process. Cirrhosis with small varices and mild splenomegaly which favor portal hypertension. recommend she follows up with GI as outpatient. (4) Depression: will consult psych and monitor. continue home meds. This appears to be along standing issue. (5) Morbid obesity with BMI of 40.0-44.9, adult: will need to monitor weight as outpatient (6) Sarcoidosis of lung: Per history- no current medications follows with pulmonary. (7) Hypokalemia: will replenish and monitor. May be due to poor nutrition. however, phos and mag are normal (8) Hypertension: Blood pressure is mldly elevated. Continue home meds and monitor. DVT: heparin History of Present Illness Primary Care Provider: Vinicio Tamayo MD 64 yo female reports coming into the hospital after having a feeling of being dizzy, room spinning, and reports passing out. She s a poor historian and reports she does not exactly recall what happened. She states her family was helping her move furniture. However she is unsur e what happened next. Only thing she recalls is that room was spinning and that her legs felt weak and she fell. She is unsure if she had a loss of consciousness. Denies any tongue biting, urinary or fecal incontinence. Allergies Allergy/AdvReac Type Severity Reaction Status Date / Time Thiazides Allergy Severe SOB, Verified 03/14/20 11:33 hives, rash omeprazole Allergy Intermediate joints hurt Verified 03/14/20 11:33 prednisone Allergy Intermediate FACIAL Verified 03/14/20 11:33 NUMBNESS AND DIZZINESS trazodone AdvReac Severe suicidial Verified 03/14/20 11:33 idealations gabapentin AdvReac Verified 03/14/20 11:33 topiramate [From Topamax] AdvReac Verified 03/14/20 11:33 Home Medications Medication Instructions Recorded Confirmed Type hydroxyzine HCl 10 mg tablet 10 - 20 mg PO HS PRN 10 Days #60 01/20/19 03/14/20 Rx tab losartan 100 mg tablet 100 mg PO QAM #90 tab 05/19/19 03/14/20 Rx aripiprazole 2 mg tablet 2 mg PO QAM 06/18/19 03/14/20 History propranolol 20 mg tablet 10 mg PO QAM tab 11/19/19 03/14/20 History Past Med/Surg History Medical History (Updated 03/14/20 @ 18:51 by Fortino Muir MD) Abdominal pain Angiomyolipoma of right kidney Anxiety Arthralgia Calcium nephrolithiasis Cirrhosis, nonalcoholic Depression Diverticulosis Fatty liver Fibromyalgia Gastroesophageal reflux disease without esophagitis Hypertension Insomnia Internal hemorrhoids IPMN (intraductal papillary mucinous neoplasm) Irritable bowel syndrome Kidney mass Kidney stone (2014) Macular edema of left eye Nausea Prediabetes Sarcoidosis of lung Suicidal ideation Tingling Vitamin D deficiency Surgical History H/O tooth extraction H/O: hysterectomy Hx of cystoscopy With Ureteroscopy With Manipulation Of Calculus Family History Mother Coronary heart disease Skin cancer Diabetes Hypertension History of nephrolithiasis Acute myocardial infarction Colon cancer Myocardial infarction Unknown Heart disease Diabetes Hypertension History of nephrolithiasis Sister Diabetes Father Hypertension Acute myocardial infarction Myocardial infarction Unknown Hypertension Brother Hypertension Malignant neoplasm of kidney Aunt Colon cancer Denies family history of Ovarian cancer Prostate cancer Breast cancer Social History Smoking Status: Never smoker Second Hand Exposure: No; Do You Dip or Chew Tobacco: No; Hx Alcohol Use: No Hx Substance Use: No Preferred Language: Greenlandic Communication Ability: Effective Visual Impairment: No Limitations Hearing Ability: Normal Mail Messenger Contractor Required: No Beliefs That Will Affect Care: Spiritual Spiritual Healthcare Practices: Jehoviah Witness/no blood of any form transfused marital status: Single Current Living Situation: Alone current occupational status: disabled Feels Safe at Home: Yes Safety Concerns: Feels Safe At This Time Childhood Exposure to Second-Hand Smoke: No Dental Care, Regularly: Yes Physical Activity Frequency: Does not Exercise Seatbelt Use: always Sunscreen Use: No Assistive Devices: Glasses Review of Systems Constitutional: no sweats and no malaise Eyes: no diplopia, no decreased night vision and no loss of peripheral vision Ear, Nose, Mouth, Throat: no ear trauma Respiratory: no change in sputum Cardiovascular: no chest pain with activity Gastrointestinal: no bloating and no nausea Genitourinary: no urinary frequency, no urinary incontinence and no decreased urination Musculoskeletal: no radicular pain and no deformity Integumentary: no rash and no skin ulcer Neurologic: no falls Psychiatric: no suicidal ideation Endocrine: no polydipsia Hematologic / Lymphatic: no coagulopathy Physical Exam Constitutional: WD/WN, vitals as above well developed Eyes: PERRL, conjunctivae normal, anicteric sclerae ENMT: external ear and nose normal, oropharynx normal Neck: trachea midline, no thyromegaly Respiratory: normal respiratory effort, lungs clear to auscultation Cardiovascular: RRR, no murmur, no edema Gastrointestinal (Abdomen): normal bowel sounds, soft, nontender, no hepatosplenomegaly Musculoskeletal: no cyanosis or clubbing, extremities motor strength 5/5 Skin: no rashes, warm and dry Neurologic: PERRL, EOMI, accommodation nl, no face palsy, no dysarthria Psychiatric: A+Ox3, euthymic affect Genitourinary: no vaginal lesions, no adnexal mass Results & Data Results & Data ([facility]) Vital Signs (Past 12 Hours) Vital Signs Temp Pulse Resp BP Pulse Ox 03/14/20 10:45 82 21 97 03/14/20 10:30 82 21 97 03/14/20 10:16 83 15 96 03/14/20 10:15 83 18 96 03/14/20 10:08 36.5 C 86 20 121/80 96 03/14/20 09:57 85 22 121/80 93 PG Care Time/CCT Total # of Minutes Spent Total Time Spent with Patient: Total time spent is greater than 50% in coordination of care (as documented) at patient's floor/unit and/or counseling patient: Coding Level of Care Code 54504 Initial Inpt Care Lvl 3 Diagnoses Near syncope R55 Fibromyalgia M79.7 Cirrhosis, nonalcoholic K74.60 Depression F32.9 Morbid obesity with BMI of 40.0-44.9, adult E66.01; Z68.41 Sarcoidosis of lung D86.0 Hypokalemia E87.6 Hypertension I10 Hypertension type: essential hypertension Time Spent (min) 35 (1) Hypertension Hypertension type: essential hypertension Qualified Code(s): I10 - Essential (primary) hypertension
[2020-03-14 13:41] LABS: Phosphorus 3.1 mg/dl (2.5-4.9)
[2020-03-14] MEDS: POTASSIUM CHLORIDE CRTAB 20 MEQ TABCR PO SCH ×2 (14:58→20:33)
--- NOTE | 2020-03-14 15:04 | Electrocardiogram Report ---
Test Reason : Blood Pressure : / mmHG Vent. Rate : 086 BPM Atrial Rate : 086 BPM P-R Int : 144 ms QRS Dur : 078 ms QT Int : 372 ms P-R-T Axes : -06 -08 075 degrees QTc Int : 445 ms Normal sinus rhythm Normal ECG When compared with ECG of 28-MAY-2019 11:26, T wave inversion now evident in Lateral leads Confirmed by Patrick Zheng ([id number]) on 03/14/2020 3:04:25 PM Referred By: REFERRED SELF Confirmed By:Solomon Zheng
[2020-03-14] MEDS: ARIPIprazole 1 MG/ML ORAL SOLN 150 ML BTL PO SCH (17:03)
[2020-03-14 22:22] LABS: BUN Creatinine Ratio 18.8 (10-20); Calcium 8.7 mg/dl (8.5-10.1); Creatinine Clr Calc Pharmacy 45.8 ml/min; Est GFR (African American) 58.7; Est GFR (Non-African American) 50.6; Potassium 3.3 mmol/L (3.5-5.1)
[2020-03-15 07:46] LABS: Appearance Urine Cloudy (Clear); Bacteria Urine Automated Negative (Negative); Blood Urine 2+ (Negative); Color Urine Dark Yellow; Epithelial Cell Urine Auto 20-30 /lpf (0-5); Glucose Urine UA Negative (Negative); Ketones Urine Trace (Negative); Leukocyte Esterase Urine 2+ (Negative); Nitrite Urine Negative (Negative); Protein Urine Negative (Negative); RBC Urine Automated >30 /hpf (0-4); Specific Gravity Urine 1.016 (1.000-1.030); Urobilinogen Urine Positive (Negative); WBC Urine Automated >30 /hpf (0-5)
[2020-03-15 07:51] LABS: Bilirubin Urine Negative (Negative); Ictotest Urine Negative (Negative)
[2020-03-15 08:49] LABS: Hemoglobin 13.9 g/dL (12.0-16.0); Mean Corpuscular Hgb Conc 34.8 g/dL (32-36); Mean Corpuscular Volume 83.3 fL (80-100); Platelet Count 237 K/uL (130-400); RDW Coefficient of Variation 14.7 % (11.5-14.5); RDW Standard Deviation 45.2 fL (36.4-46.3); White Blood Count 7.35 K/uL (4.8-10.8)
[2020-03-15] MEDS: ARIPIprazole 1 MG/ML ORAL SOLN 150 ML BTL PO SCH (09:08)
[2020-03-15] MEDS: PROPRANOLOL HCL 10 MG TAB PO SCH (09:09)
[2020-03-15] MEDS: LOSARTAN POTASSIUM 50 MG TAB PO SCH (09:09)
[2020-03-15] MEDS: HEPARIN SOD 5,000 UNIT/0.5 ML VIAL SQ SCH ×2 (09:10→20:17)
[2020-03-15] MEDS: POTASSIUM CHLORIDE CRTAB 20 MEQ TABCR PO SCH ×2 (09:10→12:55)
[2020-03-15 09:28] LABS: Albumin Level 3.2 gm/dl (3.4-5.0); BUN Creatinine Ratio 17.8 (10-20); Creatinine Clr Calc Pharmacy 52.9 ml/min; Est GFR (African American) 69.7; Est GFR (Non-African American) 60.1; Potassium 3.5 mmol/L (3.5-5.1)
[2020-03-15 09:31] LABS: Bilirubin Direct 0.7 mg/dl (0-0.2); Bilirubin,Total 1.5 mg/dl (0.2-1); Total Protein 6.4 gm/dl (6.4-8.2)
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
[2020-03-15] MEDS: cefTRIAXone SODIUM 1,000 MG in DEXTROSE 5% 50 ML IV SCH (12:51)
--- NOTE | 2020-03-15 17:48 | Hospitalist Progress Note ---
Date of Service March 15, 2020 Assessment & Plan (1) Near syncope: Near Syncope/ ? syncopal Episode: H/O Syncope Patient has been getting outpatient work-up Unsure etiology DD: Orthostatic secondary to poor oral intake; Severe malnutrition possible causing weakness, fatigue, & near syncopal event. CT head: There is no hemorrhage, mass effect, or evidence of acute territorial ischemia by CT criteria. Monitor in Telemetry for arrhythmia Check Orthostatics ECHO:Pending Received IV fluids Check Carotid USD Fall precautions Abnormal UA R/O UTI Urine culture pending Started on ceftriaxone empirically Nonalcoholic cirrhosis H/O fatty liver as per records Transaminitis Gall Bladder USD:Mildly distended sludge-filled gallbladder. No cholelithiasis or sonographic evidence of acute cholecystitis. No biliary ductal dilation. 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 Cirrhotic liver without ascites. Monitor LFTs Follows with GI as outpatient Avoid hepatotoxic agents as able Hypokalemia Likely due to poor oral intake Replete electrolytes as needed Check magnesium levels Depression Denies suicidal ideation, hallucinations Appreciate psychiatry input Continue aripiprazole If patient agrees, plan to increase aripiprazole to 5 mg daily and titrate as tolerated Follows with psychiatric provider at [place] on 03/21/2019 Hypertension Mildly elevated likely situational Continue losartan, propranolol Monitor Lung sarcoidosis Fibromyalgia As per records Anorexia due to acute depression/anxiety causing severe malnutrition Lost about 20 kg in 4 months Patient admits to very poor oral intake May need further work-up if necessary DVT Px: Heparin SQ Code Status Full Code Disposition PT/OT To be determined Admission and Anticipated Discharge Date Admission Date: March 14, 2020 Subjective Patient is seen and examined at bedside "I don't feel myself" Poor historian Slow to respond to questions. Admits to eating poorly since many weeks Denies dizziness, headache, blurry vision Unsure of the events prior to admission Denies chest pain, dyspnea, abdominal pain Review of Systems Review of Systems: All systems reviewed & are unremarkable except as noted in HPI & below Physical Exam Physical Exam: Physical Exam: Vitals signs as noted above General Appearance:Moderately built and nourished, no apparent distress Head: normocephalic, Atraumatic Eyes: normal inspection, EOMI Neck: supple, Trachea midline Respiratory/Chest: Normal breath sounds, CTA Cardiovascular: S1, S2, No murmur Abdomen/GI:Soft, Non tender, Bowel sounds present Extremities/Musculoskelatal:normal inspection, Trace edema Neurologic/Psych:AAO, +Flat Affect, grossly no focal neurological deficits, slow to respond to questions Skin: normal color, warm Results & Data Results & Data ([facility]) Vital Signs (Past 12 Hours) Vital Signs Temp Pulse Pulse Pulse Resp BP BP 03/15/20 16:11 36.6 C 90 18 140/90 03/15/20 14:20 97 H 03/15/20 11:26 36.7 C 84 16 162/112 H 03/15/20 07:57 36.9 C 95 H 20 168/103 H 03/15/20 07:00 90 Pulse Ox 03/15/20 16:11 97 03/15/20 14:20 03/15/20 11:26 96 03/15/20 07:57 94 03/15/20 07:00 Laboratory Results Short CBC 03/15/20 Range/Units 08:22 WBC 7.35 (4.8-10.8) K/uL Hgb 13.9 (12.0-16.0) g/dL Hct 40.0 (37-47) % Plt Count 237 (130-400) K/uL BMP 03/14/20 03/15/20 21:49 08:22 Sodium 144 141 Potassium 3.3 L 3.5 Chloride 106 108 H Carbon Dioxide 32 24 BUN 21 H 18 Creatinine 1.13 0.98 Glucose 105 H 122 H Calcium 8.7 9.0 Liver Function 03/15/20 Range/Units 08:22 Total Bilirubin 1.5 H (0.2-1) mg/dl Direct Bilirubin 0.7 H (0-0.2) mg/dl AST 67 H (15-37) U/L ALT 131 H (12-78) U/L Alkaline Phosphatase 97 (45-117) U/L Albumin 3.2 L (3.4-5.0) gm/dl Urine 03/15/20 Range/Units 07:25 Urine Color Dark Yellow Urine Appearance Cloudy A (Clear) Urine pH 5.0 (4.5-7.5) Ur Specific Tower 1.016 (1.000-1.030) Urine Protein Negative (Negative) Urine Glucose (UA) Negative (Negative)
[2020-03-16 06:59] LABS: Hematocrit (blood only) 38.8 % (37-47); Hemoglobin 13.5 g/dL (12.0-16.0); Mean Corpuscular Hgb Conc 34.8 g/dL (32-36); Mean Corpuscular Volume 83.4 fL (80-100); Mean Platelet Volume 10.4 fL (7.4-10.4); Platelet Count 228 K/uL (130-400); RDW Coefficient of Variation 14.8 % (11.5-14.5); RDW Standard Deviation 45.1 fL (36.4-46.3); Red Blood Count 4.65 M/uL (4.2-5.4); White Blood Count 7.12 K/uL (4.8-10.8)
[2020-03-16 07:29] LABS: BUN Creatinine Ratio 14.1 (10-20); Calcium 8.5 mg/dl (8.5-10.1); Est GFR (African American) 90.4; Globulin 3.1 gm/dl (2.5-4.0); Magnesium 1.8 mg/dl (1.8-2.4); Potassium 3.8 mmol/L (3.5-5.1); Total Protein 6.1 gm/dl (6.4-8.2)
[2020-03-16] MEDS: LOSARTAN POTASSIUM 50 MG TAB PO SCH (09:06)
[2020-03-16] MEDS: ARIPIprazole 1 MG/ML ORAL SOLN 150 ML BTL PO SCH (09:06)
[2020-03-16] MEDS: PROPRANOLOL HCL 10 MG TAB PO SCH (09:06)
[2020-03-16] MEDS: HEPARIN SOD 5,000 UNIT/0.5 ML VIAL SQ SCH ×2 (09:09→20:23)
[2020-03-16] MEDS: cefTRIAXone SODIUM 1,000 MG in DEXTROSE 5% 50 ML IV SCH (09:38)
--- NOTE | 2020-03-16 18:25 | Hospitalist Progress Note ---
Date of Service March 16, 2020 Assessment & Plan (1) Near syncope: Near Syncope/ ? syncopal Episode: H/O Syncope Patient has been getting outpatient work-up Unsure etiology DD: Orthostatic secondary to poor oral intake; Severe malnutrition possible causing weakness, fatigue, & near syncopal event. CT head: There is no hemorrhage, mass effect, or evidence of acute territorial ischemia by CT criteria. Monitor in Telemetry for arrhythmia Orthostatics Negative ECHO:Pending Carotid USD:pending Received IV fluids Fall precautions Abnormal UA R/O UTI Urine culture pending Continue ceftriaxone empirically Nonalcoholic cirrhosis H/O fatty liver as per records Transaminitis Gall Bladder USD:Mildly distended sludge-filled gallbladder. No cholelithiasis or sonographic evidence of acute cholecystitis. No biliary ductal dilation. 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 Cirrhotic liver without ascites. Monitor LFTs--Trends down Follows with GI as outpatient Avoid hepatotoxic agents as able Hypokalemia Likely due to poor oral intake Replete electrolytes as needed Normal magnesium levels Depression Denies suicidal ideation, hallucinations Appreciate psychiatry input Continue aripiprazole If patient agrees, plan to increase aripiprazole to 5 mg daily and titrate as tolerated Follows with psychiatric provider at [place] on 03/21/2019 Hypertension BP Variable Continue losartan, propranolol Monitor Lung sarcoidosis Fibromyalgia As per records Anorexia due to acute depression/anxiety causing severe malnutrition Lost about 20 kg in 4 months Patient admits to very poor oral intake May need further work-up if necessary DVT Px: Heparin SQ Code Status Full Code Disposition PT/OT To be determined Case management to help with discharge planning Admission and Anticipated Discharge Date Admission Date: March 14, 2020 Subjective Patient is seen and examined at bedside Eating lunch during my encounter Little more responsive to questions today Denies suicidal ideation Also denies chest pain, dyspnea, abdominal pain, dizziness, headache, blurry vision Eager to get discharged Review of Systems Review of Systems: All systems reviewed & are unremarkable except as noted in HPI & below Physical Exam Physical Exam: Physical Exam: Vitals signs as noted above General Appearance:Moderately built and nourished, no apparent distress Head: normocephalic, Atraumatic Eyes: normal inspection, EOMI Neck: supple, Trachea midline Respiratory/Chest: Normal breath sounds, CTA Cardiovascular: S1, S2, No murmur Abdomen/GI:Soft, Non tender, Bowel sounds present Extremities/Musculoskelatal:normal inspection, Trace edema Neurologic/Psych:AAO, +Flat Affect, grossly no focal neurological deficits, slow to respond to questions Skin: normal color, warm Results & Data Results & Data ([facility]) Vital Signs (Past 12 Hours) Vital Signs Temp Pulse Pulse Resp BP BP Pulse Ox 03/16/20 16:52 36.8 C 86 18 147/93 H 96 03/16/20 16:00 86 03/16/20 11:00 36.3 C L 82 18 122/82 98 03/16/20 08:00 36.9 C 94 H 18 133/86 94 03/16/20 07:30 90 Laboratory Results Short CBC 03/16/20 Range/Units 06:32 WBC 7.12 (4.8-10.8) K/uL Hgb 13.5 (12.0-16.0) g/dL Hct 38.8 (37-47) % Plt Count 228 (130-400) K/uL BMP 03/16/20 06:32 Sodium 142 Potassium 3.8 Chloride 109 H Carbon Dioxide 26 BUN 11 Creatinine 0.79 Glucose 104 H Calcium 8.5 Liver Function 03/16/20 Range/Units 06:32 Total Bilirubin 1.0 D (0.2-1) mg/dl AST 29 (15-37) U/L ALT 93 H (12-78) U/L Alkaline Phosphatase 86 (45-117) U/L Albumin 3.0 L (3.4-5.0) gm/dl
[2020-03-17] MEDS ORDERED: POTASSIUM CHLORIDE CRTAB 20 MEQ TABCR PO STA (04:22)
[2020-03-17] MEDS ORDERED: MAGNESIUM SULFATE / D5W 1 GM/100 ML BAG IV ONE (04:22)
[2020-03-17] MEDS: PROPRANOLOL HCL 10 MG TAB PO SCH (05:08)
[2020-03-17 08:04] LABS: Albumin Globulin Ratio 0.9 (0.9-2); BUN Creatinine Ratio 16.9 (10-20); Bilirubin,Total 0.9 mg/dl (0.2-1); Calcium 8.9 mg/dl (8.5-10.1); Creatinine Clr Calc Pharmacy 70.6 ml/min; Est GFR (African American) 94.7; Est GFR (Non-African American) 81.7; Globulin 3.4 gm/dl (2.5-4.0); Potassium 4.1 mmol/L (3.5-5.1); Total Protein 6.4 gm/dl (6.4-8.2)
[2020-03-17] MEDS: HEPARIN SOD 5,000 UNIT/0.5 ML VIAL SQ SCH ×2 (08:07→21:51)
[2020-03-17] MEDS: LOSARTAN POTASSIUM 50 MG TAB PO SCH (08:07)
[2020-03-17] MEDS: ARIPIprazole 1 MG/ML ORAL SOLN 150 ML BTL PO SCH (08:08)
[2020-03-17] MEDS ORDERED: amLODIPine BESYLATE 5 MG TAB PO SCH (09:00)
[2020-03-17] MEDS: amLODIPine BESYLATE 5 MG TAB PO SCH (10:18)
[2020-03-17] MEDS: cefTRIAXone SODIUM 1,000 MG in DEXTROSE 5% 50 ML IV SCH (10:19)
--- NOTE | 2020-03-17 17:01 | Hospitalist Progress Note ---
Date of Service March 17, 2020 Assessment & Plan (1) Near syncope: Near Syncope/ ? syncopal Episode: H/O Syncope Patient has been getting outpatient work-up Unsure etiology DD: Orthostatic secondary to poor oral intake; Severe malnutrition possible causing weakness, fatigue, & near syncopal event. CT head: There is no hemorrhage, mass effect, or evidence of acute territorial ischemia by CT criteria. Monitor in Telemetry for arrhythmia Orthostatics Negative Consider ECHO, Carotid USD if needed Received IV fluids Fall precautions Denies dizziness Abnormal UA Ruled out UTI Urine culture probable skin lenard Received 3 doses of ceftriaxone Nonalcoholic cirrhosis H/O fatty liver as per records Transaminitis Gall Bladder USD:Mildly distended sludge-filled gallbladder. No cholelithiasis or sonographic evidence of acute cholecystitis. No biliary ductal dilation. 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 Cirrhotic liver without ascites. Monitor LFTs--Trended down Follows with GI as outpatient Avoid hepatotoxic agents as able Hypokalemia Likely due to poor oral intake Replete electrolytes as needed Normal magnesium levels Depression H/O TAL, Bipolar Disorder as per records Denies suicidal ideation, hallucinations Appreciate psychiatry input Continue aripiprazole If patient agrees, plan to increase aripiprazole to 5 mg daily and titrate as tolerated Follows with psychiatric provider at [place] on 03/21/2019 Does not meet criteria for inpatient care as per psychiatry. Needs follow-up with psychiatry upon discharge Hypertension BP Variable Continue losartan, propranolol Added Amlodipine Monitor Lung sarcoidosis Fibromyalgia As per records Anorexia due to acute depression/anxiety causing severe malnutrition Lost about 20 kg in 4 months Patient admits to very poor oral intake May need further work-up if necessary Admits to have financial issues DVT Px: Heparin SQ Code Status Full Code Disposition PT/OT Case management to help with discharge planning Admission and Anticipated Discharge Date Admission Date: March 14, 2020 Subjective Patient is seen and examined at bedside No specific complaints Admits to have financial issues Denies Suicidal ideation Also denies chest pain, dyspnea, abdominal pain, dizziness, headache Discussed with psychiatry today Review of Systems Review of Systems: All systems reviewed & are unremarkable except as noted in HPI & below Physical Exam Physical Exam: Physical Exam: Vitals signs as noted above General Appearance:Moderately built and nourished, no apparent distress Head: normocephalic, Atraumatic Eyes: normal inspection, EOMI Neck: supple, Trachea midline Respiratory/Chest: Normal breath sounds, CTA Cardiovascular: S1, S2, No murmur Abdomen/GI:Soft, Non tender, Bowel sounds present Extremities/Musculoskelatal:normal inspection, Trace edema Neurologic/Psych:AAO, +Flat Affect, grossly no focal neurological deficits, slow to respond to questions Skin: normal color, warm Results & Data Results & Data ([facility]) Vital Signs (Past 12 Hours) Vital Signs Temp Pulse Pulse Resp BP Pulse Ox 03/17/20 16:44 116 H 03/17/20 16:00 80 18 144/86 H 03/17/20 15:48 36.8 C 119 H 19 163/117 H 96 03/17/20 10:15 94 H 20 144/94 H 03/17/20 08:30 86 Laboratory Results [facility] 03/17/20 07:03 Sodium 137 Potassium 4.1 Chloride 106 Carbon Dioxide 25 BUN 13 Creatinine 0.76 Glucose 123 H Calcium 8.9 Liver Function 03/17/20 Range/Units 07:03 Total Bilirubin 0.9 (0.2-1) mg/dl AST 16 (15-37) U/L ALT 68 (12-78) U/L Alkaline Phosphatase 88 (45-117) U/L Albumin 3.0 L (3.4-5.0) gm/dl
[2020-03-18] MEDS: ARIPIprazole 1 MG/ML ORAL SOLN 150 ML BTL PO SCH (09:40)
[2020-03-18] MEDS: amLODIPine BESYLATE 5 MG TAB PO SCH (09:41)
[2020-03-18] MEDS: LOSARTAN POTASSIUM 50 MG TAB PO SCH (09:41)
[2020-03-18] MEDS: PROPRANOLOL HCL 10 MG TAB PO SCH (09:41)
[2020-03-18] MEDS: HEPARIN SOD 5,000 UNIT/0.5 ML VIAL SQ SCH (09:41)
--- NOTE | 2020-03-18 10:51 | Hospitalist Progress Note ---
Date of Service March 18, 2020 Assessment & Plan (1) Near syncope: Near Syncope/ ? syncopal Episode: H/O Syncope Patient has been getting outpatient work-up Unsure etiology DD: Orthostatic secondary to poor oral intake; Severe malnutrition possible causing weakness, fatigue, & near syncopal event. CT head: There is no hemorrhage, mass effect, or evidence of acute territorial ischemia by CT criteria. Monitor in Telemetry for arrhythmia Orthostatics Negative Refused ECHO, Carotid USD Received IV fluids Fall precautions Denies dizziness No arrhythmias on monitor Advised to get further work-up including echo, carotid ultrasound as outpatient if she agrees Abnormal UA Ruled out UTI Urine culture probable skin lenard Received 3 doses of ceftriaxone Nonalcoholic cirrhosis H/O fatty liver as per records Transaminitis Gall Bladder USD:Mildly distended sludge-filled gallbladder. No cholelithiasis or sonographic evidence of acute cholecystitis. No biliary ductal dilation. 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 Cirrhotic liver without ascites. Monitor LFTs--Trended down Follows with GI as outpatient Avoid hepatotoxic agents as able Hypokalemia Likely due to poor oral intake Replete electrolytes as needed Normal magnesium levels Depression H/O TAL, Bipolar Disorder as per records Denies suicidal ideation, hallucinations Appreciate psychiatry input Continue aripiprazole If patient agrees, plan to increase aripiprazole to 5 mg daily and titrate as tolerated Follows with psychiatric provider at [place] on 03/21/2019 Does not meet criteria for inpatient care as per psychiatry. Needs follow-up with psychiatry upon discharge Hypertension BP Variable Continue losartan, propranolol Added Amlodipine BP more accurate with manual checks Monitor Lung sarcoidosis Fibromyalgia As per records Anorexia due to acute depression/anxiety causing severe malnutrition Lost about 20 kg in 4 months Patient admits to very poor oral intake initially May need further work-up if necessary if patient agrees Admits to have financial issues DVT Px: Heparin SQ Code Status Full Code Disposition Home with Home Health Case management to help with discharge planning Admission and Anticipated Discharge Date Admission Date: March 14, 2020 Subjective Patient is seen and examined at bedside No specific complaints Admits to have financial issues Denies Suicidal ideation Also denies chest pain, dyspnea, abdominal pain, dizziness, headache Discussed with psychiatry today Review of Systems Review of Systems: All systems reviewed & are unremarkable except as noted in HPI & below Physical Exam Physical Exam: Physical Exam: Vitals signs as noted above General Appearance:Moderately built and nourished, no apparent distress Head: normocephalic, Atraumatic Eyes: normal inspection, EOMI Neck: supple, Trachea midline Respiratory/Chest: Normal breath sounds, CTA Cardiovascular: S1, S2, No murmur Abdomen/GI:Soft, Non tender, Bowel sounds present Extremities/Musculoskelatal:normal inspection, Trace edema Neurologic/Psych:AAO, +Flat Affect, grossly no focal neurological deficits, slow to respond to questions Skin: normal color, warm Results & Data Results & Data ([facility]) Vital Signs (Past 12 Hours) Vital Signs Temp Pulse Pulse Resp BP BP Pulse Ox 03/18/20 10:35 124/92 03/18/20 07:16 106 H 03/18/20 06:53 36.8 C 61 20 169/108 H 166/102 H 03/18/20 03:00 36.7 C 100 H 16 128/84 97 03/17/20 23:06 37.1 C 112 H 20 147/89 H 96
--- NOTE | 2020-03-18 11:02 | Discharge Summary ---
Date of Service March 18, 2020 Admission HPI Per Admitting Provider 64 yo female reports coming into the hospital after having a feeling of being dizzy, room spinning, and reports passing out. She s a poor historian and reports she does not exactly recall what happened. She states her family was helping her move furniture. However she is unsur e what happened next. Only thing she recalls is that room was spinning and that her legs felt weak and she fell. She is unsure if she had a loss of consciousness. Denies any tongue biting, urinary or fecal incontinence. Admission Exam Per Admitting Provider Physical Exam Constitutional: WD/WN, vitals as above well developed Eyes: PERRL, conjunctivae normal, anicteric sclerae ENMT: external ear and nose normal, oropharynx normal Neck: trachea midline, no thyromegaly Respiratory: normal respiratory effort, lungs clear to auscultation Cardiovascular: RRR, no murmur, no edema Gastrointestinal (Abdomen): normal bowel sounds, soft, nontender, no he patosplenomegaly Musculoskeletal: no cyanosis or clubbing, extremities motor strength 5/5 Skin: no rashes, warm and dry Neurologic: PERRL, EOMI, accommodation nl, no face palsy, no dysarthria Psychiatric: A+Ox3, euthymic affect Genitourinary: no vaginal lesions, no adnexal mass Principal Diagnosis Near syncope Hypokalemia Depression Discharge Data Allergies Allergy/AdvReac Type Severity Reaction Status Date / Time Thiazides Allergy Severe SOB, Verified 03/14/20 11:33 hives, rash omeprazole Allergy Intermediate joints hurt Verified 03/14/20 11:33 prednisone Allergy Intermediate FACIAL Verified 03/14/20 11:33 NUMBNESS AND DIZZINESS trazodone AdvReac Severe suicidial Verified 03/14/20 11:33 idealations gabapentin AdvReac Verified 03/14/20 11:33 topiramate [From Topamax] AdvReac Verified 03/14/20 11:33 Consultations 03/14/20 11:22 ED Decision to Admit Stat 03/14/20 11:56 Consult Psychiatry Routine 03/14/20 12:00 Consult Case Management - Discharge Planning Routine Procedures Performed CT head: There is no hemorrhage, mass effect, or evidence of acute territorial ischemia by CT criteria. Gall Bladder USD:Mildly distended sludge-filled gallbladder. No cholelithiasis or sonographic evidence of acute cholecystitis. No biliary ductal dilation. 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 Cirrhotic liver without ascites. Ordered Studies 03/14/20 10:21 CT head/brain wo con Stat 03/14/20 11:22 US gallbladder Stat 03/17/20 US carotid doppler BI Routine Hospital Course (1) Near syncope: Near Syncope/ ? syncopal Episode: H/O Syncope Patient has been getting outpatient work-up Unsure etiology DD: Orthostatic secondary to poor oral intake; Severe malnutrition possible causing weakness, fatigue, & near syncopal event. CT head: There is no hemorrhage, mass effect, or evidence of acute territorial ischemia by CT criteria. Monitor in Telemetry for arrhythmia Orthostatics Negative Refused ECHO, Carotid USD Received IV fluids Fall precautions Denies dizziness No arrhythmias on monitor Advised to get further work-up including echo, carotid ultrasound as outpatient if she agrees Updated patient's sister over the phone who understands and assures to follow up upon discharge. Abnormal UA Ruled out UTI Urine culture probable skin lenard Received 3 doses of ceftriaxone Nonalcoholic cirrhosis H/O fatty liver as per records Transaminitis Gall Bladder USD:Mildly distended sludge-filled gallbladder. No cholelithiasis or sonographic evidence of acute cholecystitis. No biliary ductal dilation. 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 Cirrhotic liver without ascites. Monitor LFTs--Trended down Follows with GI as outpatient Avoid hepatotoxic agents as able Hypokalemia Likely due to poor oral intake Replete electrolytes as needed Normal magnesium levels Depression H/O TAL, Bipolar Disorder as per records Denies suicidal ideation, hallucinations Appreciate psychiatry input Continue aripiprazole If patient agrees, plan to increase aripiprazole to 5 mg daily and titrate as tolerated Follows with psychiatric provider at [place] on 03/21/2019 Does not meet criteria for inpatient care as per psychiatry. Needs follow-up with psychiatry upon discharge Hypertension BP Variable Continue losartan, propranolol Added Amlodipine BP more accurate with manual checks Monitor Lung sarcoidosis Fibromyalgia As per records Anorexia due to acute depression/anxiety causing severe malnutrition Lost about 20 kg in 4 months Patient admits to very poor oral intake initially May need further work-up if necessary if patient agrees Admits to have financial issues DVT Px: Heparin SQ Code Status Full Code Disposition Home with Home Health Case management to help with discharge planning Total Time Total Time Spent Total Time Spent (In Minutes): 45 minutes Total Time Includes: Examination of the Patient, Discharge Planning, Medication Reconciliation, Communication With Other Providers and Other Discharge Plan Discharge Items Patient Disposition: Home - Self-Care Reason For Visit: hypokalemia Discharge Diagnosis: Near syncope Hypokalemia Depression Activity: Per Instructions section Exercise/Sports: Gradually increase as tolerated Non-emergency contact: Primary Care Provider and Psychiatrist Call non-emergency contact if: you have any medication questions, your symptoms worsen, your pain is not controlled, your pain is worsening, your pain is unusual for you, your pain is concerning for you and you have a fever Follow-up/Referrals: Vinicio Tamayo MD [Primary Care Provider] - Diet: Heart Healthy Addtl Attending Provider Instructions: Follow-up with your primary care physician Vinicio Chappell V. in 1 week upon discharge Follow-up with your psychiatric provider at [place] on 03/21/2019 as sceduled Take your medications regularly as advised. Consider getting further work-up including echocardiogram, carotid ultrasound and further work-up for weight loss as outpatient as advised. Seek immediate medical attention if your symptoms reoccur or worsen Pending Studies at Discharge: No Stand-Alone Forms: My [facility], Smoking Cessation Medications and DC Order Prescriptions: New amlodipine [Norvasc] 5 mg Tablet 2.5 mg PO QAM Qty: 30 RF: 0 Continued losartan [Cozaar] 100 mg tablet 100 mg PO QAM Qty: 90 RF: 3 propranolol 20 mg tablet 10 mg PO QAM RF: 0 aripiprazole [Abilify] 2 mg tablet 2 mg PO QAM RF: 0 hydroxyzine HCl 10 mg tablet 10 - 20 mg PO HS PRN (Reason: sleep) 10 Days Qty: 60 RF: 0 Discharge Orders: Discharge Order (Routine); Ordered 03/18/20 Ordered By: Josse Ford Admission Data Admit Date/Time: 03/14/20 11:56 Attending Provider: Josse Ford Admit Provider: Julius Ford Primary Care Provider: Vinicio Tamayo V. Other Providers: Julius Ford ; Faye Pettit ; [facility] Other Interventions: Discharge Summary Assessment (RN) Last Done: 03/18/20 11:37
[2020-03-18 11:06] VITALS: BP 126/96; TEMP 97.3; O2SAT 96
[2020-03-18 11:39] VITALS: PULSE 95
== END 2020-03-18 13:48 | disposition home or self-care (01) | DRG 640 ==
LOC: ED 09:53 → EDINP 11:56 → 2N 15:33

== ENCOUNTER 2020-07-01 13:44 | Inpatient (IN) ==
--- NOTE | 2020-07-01 13:51 | Emergency Department Note ---
Impression & Plan ADRIANA (acute kidney injury), Syncope ED Provider Note NAME: HAILEY MATHIS AGE: 64 SEX: F : 1955 ARRIVES VIA: Ambulance INFORMANT: Patient, ED PROVIDER(S): Edmond Oneill MD Chief Complaint: Syncope HPI: Patient does present with concern for syncope. The patient states that it happened all of a sudden. The patient states it was as though she could not catch her breath. The patient denies any current chest pains or shortness of breath at present. Patient has noticed some hoarseness in the voice which began yesterday on and off and has been more constant today. The patient denies any fevers or chills. The patient has stated she has had decreased appetite. The patient denies any history of seizures tongue biting or incontinence. The patient denies any focal weakness but complains of disseminated generalized weakness. BSG prior to arrival was 181. Initially for EMS the patient was slightly hypotensive with a systolic in the 80s. This is improved upon arrival. The patient denies any palpitations or thyroid issues. The patient denies as though her heart was beating too slow. The patient denies any alcohol tobacco or drug use. Patient does state that she had a similar episode like this earlier in the year. ROS: See HPI for pertinent positives and negatives. A total of 10 systems were reviewed and otherwise negative. Past medical history: See below Surgical history: See below Social history: See below Physical Exam: GENERAL: Fatigued in appearance, wearing a mask. EYE EXAM: Normal conjunctiva. PERRL, no anisocoria and EOM's grossly intact w/o pain. NECK: Supple, no nuchal rigidity, no adenopathy, non-tender. No signs of meningismus. LUNGS: Clear to auscultation. Normal chest wall mechanics. HEART: NSR, no MRG. ABDOMEN: Abdomen soft, non-tender, normo-active bowel sounds, no masses, no rebound or guarding. BACK: No CVA TTP. SKIN: No rashes and no bruising. UPPER EXTREMITIES: Upper extremities are grossly normal. LOWER EXTREMITIES: Grossly normal, no edema. NEURO EXAM: A&O x3, cranial nerves II-XII grossly intact, normal speech with exception of hoarse voice noted, moves all 4 extremities on command w/o issue. Differential diagnoses: Vasovagal event, dehydration, infection, hypoglycemia, electrolyte abnormalities, cardiac sources, intracerebral event, pulmonary embolism, seizure, toxicologic, neurologic, as well as other pathologies. Course: Patient was seen and evaluated the bedside. Full history physical exam was performed. EKG: Indication: Syncope Normal sinus rhythm, rate 97, normal intervals, normal axis, no ST changes or T WI. Imaging Studies: See below Cardiac monitoring: An order was placed for continuous cardiac monitoring. The monitor shows a rate of 89 with sinus rhythm. MDM: Patient does present with concern for syncope. Patient has no signs to moderate DVT on exam. Nonfocal neurologic exam. Patient did have CT of the head blood work and was given IV fluids. Patient has normal white count H&H and platelet count. The patient's kidney function does show ADRIANA. The patient's prior baseline creatinine is 0.7 today is 1.7. Troponin is detectable but not elevated. Flu RSV and Covid negative. CT head negative. Given the patient's syncope and ADRIANA I did speak the on-call hospitalist and the patient was admitted to the medicine service. Past Med/Surg History Medical History (Updated 07/01/20 @ 18:03 by Edmond Oneill MD) Abdominal pain Angiomyolipoma of right kidney Anxiety Arthralgia Calcium nephrolithiasis Cirrhosis, nonalcoholic Depression Diverticulosis Fatty liver Fibromyalgia Gastroesophageal reflux disease without esophagitis Hypertension Insomnia Internal hemorrhoids IPMN (intraductal papillary mucinous neoplasm) Irritable bowel syndrome Kidney mass Kidney stone (2014) Macular edema of left eye Nausea Prediabetes Sarcoidosis of lung Suicidal ideation Tingling Vitamin D deficiency Surgical History H/O tooth extraction H/O: hysterectomy Hx of cystoscopy With Ureteroscopy With Manipulation Of Calculus Family History Mother Coronary heart disease Skin cancer Diabetes Hypertension History of nephrolithiasis Acute myocardial infarction Colon cancer Myocardial infarction Unknown Heart disease Diabetes Hypertension History of nephrolithiasis Sister Diabetes Father Hypertension Acute myocardial infarction Myocardial infarction Unknown Hypertension Brother Hypertension Malignant neoplasm of kidney Aunt Colon cancer Denies family history of Ovarian cancer Prostate cancer Breast cancer Social History Smoking Status: Never smoker Second Hand Exposure: No; Hx Alcohol Use: No Hx Substance Use: No Preferred Language: Sinhala Communication Ability: Effective Visual Impairment: No Limitations Hearing Ability: Normal Readers' Advisory Service Librarian Required: No Beliefs That Will Affect Care: None marital status: Single Current Living Situation: Alone current occupational status: disabled Feels Safe at Home: Yes Safety Concerns: Feels Safe At This Time Childhood Exposure to Second-Hand Smoke: No Dental Care, Regularly: Yes Physical Activity Frequency: Does not Exercise Seatbelt Use: always Sunscreen Use: No Assistive Devices: Glasses Allergies Allergies Allergy/AdvReac Type Severity Reaction Status Date / Time Thiazides Allergy Severe SOB, Verified 07/01/20 15:33 hives, rash omeprazole Allergy Intermediate joints hurt Verified 07/01/20 15:33 prednisone Allergy Intermediate FACIAL Verified 07/01/20 15:33 NUMBNESS AND DIZZINESS trazodone AdvReac Severe suicidial Verified 07/01/20 15:33 idealations gabapentin AdvReac Verified 07/01/20 15:33 topiramate [From Topamax] AdvReac Verified 07/01/20 15:33 Home Meds Home Medications Medication Instructions Recorded Confirmed propranolol 20 mg tablet 10 mg PO QAM tab 11/19/19 07/01/20 aripiprazole 2 mg tablet 10 mg PO QAM tab 05/02/20 07/01/20 Previous Rx's Medication Instructions Recorded hydroxyzine HCl 10 mg tablet 10 - 20 mg PO HS PRN 10 Days #60 01/20/19 tab amlodipine [Norvasc] 2.5 mg PO QAM #30 tab 03/18/20 losartan 100 mg tablet 100 mg PO QAM #90 tab 04/03/20 aspirin 81 mg chewable tablet 81 mg PO DAILY #30 tab 04/07/20 Results & Data (ED) Vital Signs Vital Signs - 24 hr 07/01/20 13:56 07/01/20 15:00 07/01/20 15:01 Temperature 36.8 C Temperature Source Oral Pulse Rate 97 H 88 89 Pulse Rate from SpO2 Sensor Pulse Rhythm Regular Pulse Strength Normal Respiratory Rate 16 27 H 27 H Respiratory Effort / Characteristics Non-Labored Spontaneous Respiratory Depth Normal Respiratory Pattern Regular Blood Pressure 99/61 L 116/65 Blood Pressure Mean 73 82 Pulse Oximetry 94 Oxygen Delivery Method Room Air Sepsis Recent Fever Within 48 Hours No Sepsis New/Unexplained Change in Mental Status No Sepsis Action Taken by Nursing No Action Required 07/01/20 15:10 07/01/20 15:20 07/01/20 15:30 Temperature Temperature Source Pulse Rate 89 86 85 Pulse Rate from SpO2 Sensor Pulse Rhythm Pulse Strength Respiratory Rate 27 H 29 H 27 H Respiratory Effort / Characteristics Respiratory Depth Respiratory Pattern Blood Pressure 118/76 Blood Pressure Mean 90 Pulse Oximetry Oxygen Delivery Method Sepsis Recent Fever Within 48 Hours Sepsis New/Unexplained Change in Mental Status Sepsis Action Taken by Nursing 07/01/20 15:31 07/01/20 15:40 07/01/20 15:50 Temperature Temperature Source Pulse Rate 90 93 H 91 H Pulse Rate from SpO2 Sensor Pulse Rhythm Pulse Strength Respiratory Rate 24 21 21 Respiratory Effort / Characteristics Respiratory Depth Respiratory Pattern Blood Pressure Blood Pressure Mean Pulse Oximetry Oxygen Delivery Method Sepsis Recent Fever Within 48 Hours Sepsis New/Unexplained Change in Mental Status Sepsis Action Taken by Nursing 07/01/20 16:00 07/01/20 16:01 07/01/20 16:10 Temperature Temperature Source Pulse Rate 95 H 93 H 97 H Pulse Rate from SpO2 Sensor Pulse Rhythm Pulse Strength Respiratory Rate 28 H 27 H 20 Respiratory Effort / Characteristics Respiratory Depth Respiratory Pattern Blood Pressure 122/73 Blood Pressure Mean 89 Pulse Oximetry Oxygen Delivery Method Sepsis Recent Fever Within 48 Hours Sepsis New/Unexplained Change in Mental Status Sepsis Action Taken by Nursing 07/01/20 16:20 07/01/20 16:30 07/01/20 16:32 Temperature Temperature Source Pulse Rate 90 94 H 93 H Pulse Rate from SpO2 Sensor 93 H Pulse Rhythm Pulse Strength Respiratory Rate 27 H 26 H 21 Respiratory Effort / Characteristics Respiratory Depth Respiratory Pattern Blood Pressure 111/64 Blood Pressure Mean 79 Pulse Oximetry 99 Oxygen Delivery Method Sepsis Recent Fever Within 48 Hours Sepsis New/Unexplained Change in Mental Status Sepsis Action Taken by Nursing 07/01/20 16:40 Temperature Temperature Source Pulse Rate 93 H Pulse Rate from SpO2 Sensor Pulse Rhythm Pulse Strength Respiratory Rate 18 Respiratory Effort / Characteristics Respiratory Depth Respiratory Pattern Blood Pressure Blood Pressure Mean Pulse Oximetry Oxygen Delivery Method Sepsis Recent Fever Within 48 Hours Sepsis New/Unexplained Change in Mental Status Sepsis Action Taken by Jail Medications Current Medication List: was personally reviewed by me Laboratory Data Attestation: I reviewed the patient's lab results. Result diagrams: 07/01/20 14:36 07/01/20 14:36 Lab Results 07/01/20 07/01/20 Range/Units 14:36 14:36 WBC 7.04 (4.8-10.8) K/uL RBC 4.44 (4.2-5.4) M/uL Hgb 13.0 (12.0-16.0) g/dL Hct 37.6 (37-47) % MCV 84.7 (80-100) fL MCH 29.3 (25-34) pg MCHC 34.6 (32-36) g/dL RDW Std Deviation 41.3 (36.4-46.3) fL RDW Coeff of Ne 13.3 (11.5-14.5) % Plt Count 282 (130-400) K/uL MPV 9.1 (7.4-10.4) fL Immature Gran % (Auto) 0.3 % Neut % (Auto) 78.1 % Lymph % (Auto) 15.9 % [place] % (Auto) 4.7 % Eos % (Auto) 0.4 % Baso % (Auto) 0.6 % Neut # (Auto) 5.50 (1.4-6.5) K/uL Lymph # (Auto) 1.12 L (1.2-3.4) K/uL [place] # (Auto) 0.33 (0.11-0.59) K/uL Eos # (Auto) 0.03 (0-0.5) K/uL Baso # (Auto) 0.04 (0-0.2) K/uL Immature Gran # (Auto) 0.02 (0.00-0.02) K/uL Sodium 137 (136-145) mmol/L Potassium 4.2 (3.5-5.1) mmol/L Chloride 103 (98-107) mmol/L Carbon Dioxide 28 (21-32) mmol/L Anion Gap 6.0 (3-11) BUN 32 H (7-18) mg/dl Creatinine 1.71 H (0.6-1.2) mg/dl Est Cr Clr Drug Dosing Not Reportable Est GFR ( Amer) 35.5 Est GFR (Non-Af Amer) 30.7 BUN/Creatinine Ratio 18.5 (10-20) Glucose 197 H (70-99) mg/dl Calcium 9.5 (8.5-10.1) mg/dl Magnesium 2.4 (1.8-2.4) mg/dl Total Bilirubin 1.0 (0.2-1) mg/dl AST 9 L (15-37) U/L ALT 11 L (12-78) U/L Alkaline Phosphatase 82 (45-117) U/L Troponin I 0.023 (0-0.045) ng/ml Total Protein 6.6 (6.4-8.2) gm/dl Albumin 3.2 L (3.4-5.0) gm/dl Globulin 3.4 (2.5-4.0) gm/dl Albumin/Globulin Ratio 0.9 (0.9-2) TSH 1.400 (0.300-4.500) uIu/ml Administered Medications Discontinued Medications Sodium Chloride (Nss 1000ml) 1,000 mls @ 999 mls/hr IV .Q1H1M LUPE Stop: 07/01/20 15:15 Last Infusion: 07/01/20 15:42 Dose: 0 mls/hr Documented by: [id number] Admin: 07/01/20 14:35 Dose: 999 mls/hr Documented by: [id number] Sodium Chloride (Nss 1000ml) 1,000 mls @ 999 mls/hr IV .Q1H1M ONE Stop: 07/01/20 17:03 Last Admin: 07/01/20 17:17 Dose: 999 mls/hr Documented by: [id number] Imaging Data Radiologist's Impression: Head CT 07/01/20 14:02 CT head/brain wo con CLINICAL HISTORY: 64 years-old Female with syncope. Acute head trauma with syncope TECHNIQUE: Multiple axial CT images of the head were obtained without contrast. A dose lowering technique was utilized adhering to the principles of ALARA. CT DOSE: 638.56 mGycm COMPARISON: CT 03/14/2020 FINDINGS: No acute intracranial hemorrhage, midline shift, intracranial mass, hydrocephalus, territorial ischemia or abnormal extra-axial collection. White matter hypodensities suggestive of chronic microvascular ischemic disease. Cerebral vascular calcifications. The calvarium is intact. The paranasal sinuses, mastoid air cells, and middle ear cavities are clear. IMPRESSION: No acute intracranial abnormality. ACT 112: Negative or not required by law. The above report was generated using voice recognition software. It may contain grammatical, syntax or spelling errors. Electronically signed by: Kiran Pugh M.D. 07/01/2020 2:57 PM Discharge Plan Visit Data Chief Complaint: Syncope ED Provider: Edmond Oneill Discharge Problem: ADRIANA (acute kidney injury), Syncope Discharge Instructions Interventions: ED Discharge Assessment Last Done: 07/01/20 17:43 Discharge Problem: Syncope Qualifiers: Syncope type: unspecified Qualified Code(s): R55 - Syncope and collapse
[2020-07-01] MEDS ORDERED: SODIUM CHLORIDE 0.9% 1000ML 1,000 ML IV SCH (14:15)
[2020-07-01 14:45] LABS: Basophils # (auto) 0.04 K/uL (0-0.2); Basophils % (auto) 0.6 %; Eosinophils # (auto) 0.03 K/uL (0-0.5); Eosinophils % (auto) 0.4 %; Hematocrit (blood only) 37.6 % (37-47); Immature Granulocytes # (auto) 0.02 K/uL (0.00-0.02); Immature Granulocytes % (auto) 0.3 %; Lymphocytes # (auto) 1.12 K/uL (1.2-3.4); Lymphocytes % (auto) 15.9 %; Mean Corpuscular Hemoglobin 29.3 pg (25-34); Mean Corpuscular Hgb Conc 34.6 g/dL (32-36); Mean Corpuscular Volume 84.7 fL (80-100); Mean Platelet Volume 9.1 fL (7.4-10.4); Monocytes # (auto) 0.33 K/uL (0.11-0.59); Monocytes % (auto) 4.7 %; Neutrophils % (auto) 78.1 %; Platelet Count 282 K/uL (130-400); RDW Coefficient of Variation 13.3 % (11.5-14.5); RDW Standard Deviation 41.3 fL (36.4-46.3); Red Blood Count 4.44 M/uL (4.2-5.4); White Blood Count 7.04 K/uL (4.8-10.8)
--- NOTE | 2020-07-01 14:58 | CT Scan Report ---
CT head/brain wo con CLINICAL HISTORY: 64 years-old Female with syncope. Acute head trauma with syncope TECHNIQUE: Multiple axial CT images of the head were obtained without contrast. A dose lowering tech nique was utilized adhering to the principles of ALARA. CT DOSE: 638.56 mGycm COMPARISON: CT 03/14/2020 FINDINGS: No acute intracranial hemorrhage, midline shift, intracranial mass, hydrocephalus, territorial ischem ia or abnormal extra-axial collection. White matter hypodensities suggestive of chronic microvascular ischemic disease. Cerebral vascular calcifications. The calvarium is intact. The paranasal sinuses, mastoid air cells, and middle ear cavities are clear . IMPRESSION: No acute intracranial abnormality. ACT 112: Negative or not required by law. The above report was generated using voice recognition software. It may contain grammatical, syntax o r spelling errors. Electronically signed by: Kiran Pugh M.D. 07/01/2020 2:57 PM
[2020-07-01 15:00] LABS: Alanine Aminotransferase 11 U/L (12-78); Albumin Level 3.2 gm/dl (3.4-5.0); Aspartate Aminotransferase 9 U/L (15-37); BUN Creatinine Ratio 18.5 (10-20); Blood Urea Nitrogen 32 mg/dl (7-18); Calcium 9.5 mg/dl (8.5-10.1); Carbon Dioxide 28 mmol/L (21-32); Chloride 103 mmol/L (98-107); Est GFR (African American) 35.5; Est GFR (Non-African American) 30.7; Glucose 197 mg/dl (70-99); Magnesium 2.4 mg/dl (1.8-2.4); Potassium 4.2 mmol/L (3.5-5.1); Sodium 137 mmol/L (136-145)
[2020-07-01 15:11] LABS: Albumin Globulin Ratio 0.9 (0.9-2); Alkaline Phosphatase 82 U/L (45-117); Globulin 3.4 gm/dl (2.5-4.0); Total Protein 6.6 gm/dl (6.4-8.2); Troponin I 0.023 ng/ml (0-0.045)
[2020-07-01] MEDS ORDERED: SODIUM CHLORIDE 0.9% 1000ML 1,000 ML IV ONE (16:03)
[2020-07-01 16:23] LABS: Influenza A virus by PCR Negative (Neg); Influenza B virus by PCR Negative (Neg); RSV by PCR Negative (Neg); SARS CoV2 RNA(COVID-19) InHosp NEGATIVE (Negative)
--- NOTE | 2020-07-01 16:46 | History & Physical Report ---
Date of Service July 01, 2020 Assessment & Plan (1) Syncope: Patient with syncopal event at home. Ddx to include orthostatic, vasovagal, cardiogenic. She does appear to be dry on labs and admits to not drinking enough during the day -Telemetry monitoring -Check 2D echo - patient with history of moderate-sized pericardial effusion which has been evaluated by cardiology. Presently with normal BP, no JVD, heart tones are normal. Do not suspect tamponade -Check orthostatic VS Present on Admission?: Yes (2) Facial tingling: Etiology unclear. Patient with no additional neurological deficits -Check MRI brain Present on Admission?: Yes (3) Pericardial effusion: As above, moderate-sized pericardial effusion noted on prior echocardiogram. She has been seen by Cardiology and recommended to consider open drainage with sampling - patient with history of Sarcoidosis as well as intraductal papillary mucinous neoplasm - concerning causes for effusion. Patient does not wish to pursue additional treatment for this at this time. -Check 2D echo Present on Admission?: Yes (4) Stroke: Patient with recently diagnosed CVA found on MRI -Check Lipid panel -Check A1C -Continue ASA -Consider statin initiation Present on Admission?: Yes (5) Cognitive and behavioral changes: Patient has seen both Neurology and Psychiatry regarding her behavioral changes and moods. She is currently on Abilify 10mg daily -Continue Abilify -Consider Psychiatry consultation Present on Admission?: Yes (6) Cirrhosis: Stable. Compensated -Continue to monitor Present on Admission?: Yes (7) Bipolar II disorder: Chronic. Stable. She has seen Psychiatry in the past - uncertain what medications she has tried in the past. Presently on Abilify 10mg daily -Continue for now - could Abilify be contributing to side effects or worsening depression? -Consider Psychiatry consultation (8) Sarcoidosis of lung: Chronic. Controlled Present on Admission?: Yes History of Present Illness Chief Complaint: syncope Primary Care Provider: Vinicio Tamayo MD Rita Lopez is a 64yo female presenting with possible syncope. She reports she was doing laundry earlier today when she suddenly passed out. She does not recall if she had any dizziness, chest pain or palpitations preceding or following the event. She denies bowel or bladder incontinence. She states she was cold and clammy when she woke up and was unable to communicate effectively and felt very weak diffusely - was unable to get up. She also reports some mild left facial numbness in V2 distribution. Otherwise, denies numbness, tingling, weakness, slurred speech or headache. No additional complaints at this time. Sister is at bedside and comments that the patient has not been herself for several months. She is more withdrawn, speaks slowly and sometimes incomprehensibly and moves very slowly. No facial tics or uncontrolled movements reported. Sister states that patient has been dehydrated "for months" and her PCP is working with her on this issue. Patient was admitted for a similar episode in March 2020. She had a normal CT of the head, no arrhythmias detected. She refused an echocardiogram and carotid ultrasound during that time. Echo was obtained outpatient on 04/21/20 and was found to be normal - EF of 65-70% with no WMA or valvular abnormalities. A moderate pericardial effusion was present with no tamponade physiology. MRI showed small subacute ischemic infarct in the left parietal lobe as well as mild chronic microvascular ischemic disease Carotid duplex was negative for hemodynamically significant stenosis She was seen by Neurology on 04/04/20 for evaluation of subacute cognitive and behavioral changes - disorganization. She had a 29/30 on MMSE. MRI of the brain was ordered and EEG was normal appearing. Concerns for pseudodementia due to depressive symptoms. She was seen by Psychiatry on 04/05/20 and was noted to be confused and disorganized during the exam. Abilify was increased to 5mg She was seen by Cardiology on 05/18/20 with normal bedside echo. No urgent need for pericardiocentesis give stable clinical status - if intervention is requeired she should have a surgical pericardial window performed with analysis of pericardial tissue and fluid which was declined at time of visit. Allergies Allergy/AdvReac Type Severity Reaction Status Date / Time Thiazides Allergy Severe SOB, Verified 07/01/20 15:33 hives, rash omeprazole Allergy Intermediate joints hurt Verified 07/01/20 15:33 prednisone Allergy Intermediate FACIAL Verified 07/01/20 15:33 NUMBNESS AND DIZZINESS trazodone AdvReac Severe suicidial Verified 07/01/20 15:33 idealations gabapentin AdvReac Verified 07/01/20 15:33 topiramate [From Topamax] AdvReac Verified 07/01/20 15:33 Home Medications Medication Instructions Recorded Confirmed Type hydroxyzine HCl 10 mg tablet 10 - 20 mg PO HS PRN 10 Days #60 01/20/19 07/01/20 Rx tab propranolol 20 mg tablet 10 mg PO QAM tab 11/19/19 07/01/20 History amlodipine [Norvasc] 2.5 mg PO QAM #30 tab 03/18/20 07/01/20 Rx losartan 100 mg tablet 100 mg PO QAM #90 tab 04/03/20 07/01/20 Rx aspirin 81 mg chewable tablet 81 mg PO DAILY #30 tab 04/07/20 07/01/20 Rx aripiprazole 2 mg tablet 10 mg PO QAM tab 05/02/20 07/01/20 History Past Med/Surg History Medical History (Updated 07/01/20 @ 20:10 by Lakisha Tanner DO) Abdominal pain Angiomyolipoma of right kidney Anxiety Arthralgia Calcium nephrolithiasis Cirrhosis, nonalcoholic Depression Diverticulosis Fatty liver Fibromyalgia Gastroesophageal reflux disease without esophagitis Hypertension Insomnia Internal hemorrhoids IPMN (intraductal papillary mucinous neoplasm) Irritable bowel syndrome Kidney mass Kidney stone (2014) Macular edema of left eye Nausea Prediabetes Sarcoidosis of lung Suicidal ideation Tingling Vitamin D deficiency Surgical History H/O tooth extraction H/O: hysterectomy Hx of cystoscopy With Ureteroscopy With Manipulation Of Calculus Family History Mother Coronary heart disease Skin cancer Diabetes Hypertension History of nephrolithiasis Acute myocardial infarction Colon cancer Myocardial infarction Unknown Heart disease Diabetes Hypertension History of nephrolithiasis Sister Diabetes Father Hypertension Acute myocardial infarction Myocardial infarction Unknown Hypertension Brother Hypertension Malignant neoplasm of kidney Aunt Colon cancer Denies family history of Ovarian cancer Prostate cancer Breast cancer Social History Smoking Status: Never smoker Second Hand Exposure: No; Hx Alcohol Use: No Hx Substance Use: No Preferred Language: Finnish Communication Ability: Effective Visual Impairment: No Limitations Hearing Ability: Normal Electrical Troubleshooter Required: No Beliefs That Will Affect Care: None marital status: Single Current Living Situation: Alone current occupational status: disabled Feels Safe at Home: Yes Safety Concerns: Feels Safe At This Time Childhood Exposure to Second-Hand Smoke: No Dental Care, Regularly: Yes Physical Activity Frequency: Does not Exercise Seatbelt Use: always Sunscreen Use: No Assistive Devices: Glasses Review of Systems Review of Systems: All systems reviewed & are unremarkable except as noted in HPI & below Physical Exam Physical Exam: General: patient resting comfortably, NAD, non-toxic in appearance, AA&O x 4 Skin: warm, dry, intact, no rashes or lesions HEENT: NC/AT, PERRL, EOMI, anicteric sclera, conjunctiva without injection, external ear normal to inspection and nontender, nares patent, moist mucus membranes, dentition intact, no oropharyngeal lesions, neck supple, trachea midline, no LAD, no thyromegaly, no JVD Heart: +S1/S2, regular, no m/r/g, normal heart tones Lungs: equal air entry bilaterally, no rales/rhonchi/wheezes Abd: +BS, soft, NT/ND, no masses/organomegaly/ascites Ext: warm, 2+ pulses in UE/LE bilaterally, no clubbing/cyanosis or edema Neuro: nonfocal, patient AA&O x 4, speech intact, no facial droop, moving all extremities on command with equal strength 5/5, numbness to light touch on left face V2 distribution. Psych: Flat affect, depressed and withdrawn, poor eye contact. Patient made several statements about feeling depressed Results & Data Results & Data ([facility]) Vital Signs (Past 12 Hours) Vital Signs Temp Pulse Resp BP Pulse Ox 07/01/20 13:56 36.8 C 97 H 16 99/61 L 94 Laboratory Results Lab Results 07/01/20 07/01/2007/01/21 Range/Units 14:36 14:36 Unknown WBC 7.04 (4.8-10.8) K/uL RBC 4.44 (4.2-5.4) M/uL Hgb 13.0 (12.0-16.0) g/dL Hct 37.6 (37-47) % MCV 84.7 (80-100) fL MCH 29.3 (25-34) pg MCHC 34.6 (32-36) g/dL RDW Std Deviation 41.3 (36.4-46.3) fL RDW Coeff of Ne 13.3 (11.5-14.5) % Plt Count 282 (130-400) K/uL MPV 9.1 (7.4-10.4) fL Immature Gran % (Auto) 0.3 % Neut % (Auto) 78.1 % Lymph % (Auto) 15.9 % [place] % (Auto) 4.7 % Eos % (Auto) 0.4 % Baso % (Auto) 0.6 % Neut # (Auto) 5.50 (1.4-6.5) K/uL Lymph # (Auto) 1.12 L (1.2-3.4) K/uL [place] # (Auto) 0.33 (0.11-0.59) K/uL Eos # (Auto) 0.03 (0-0.5) K/uL Baso # (Auto) 0.04 (0-0.2) K/uL Immature Gran # (Auto) 0.02 (0.00-0.02) K/uL Sodium 137 (136-145) mmol/L Potassium 4.2 (3.5-5.1) mmol/L Chloride 103 (98-107) mmol/L Carbon Dioxide 28 (21-32) mmol/L Anion Gap 6.0 (3-11) BUN 32 H (7-18) mg/dl Creatinine 1.71 H (0.6-1.2) mg/dl Est Cr Clr Drug Dosing Not Reportable Est GFR ( Amer) 35.5 Est GFR (Non-Af Amer) 30.7 BUN/Creatinine Ratio 18.5 (10-20) Glucose 197 H (70-99) mg/dl Calcium 9.5 (8.5-10.1) mg/dl Magnesium 2.4 (1.8-2.4) mg/dl Total Bilirubin 1.0 (0.2-1) mg/dl AST 9 L (15-37) U/L ALT 11 L (12-78) U/L Alkaline Phosphatase 82 (45-117) U/L Troponin I 0.023 (0-0.045) ng/ml Total Protein 6.6 (6.4-8.2) gm/dl Albumin 3.2 L (3.4-5.0) gm/dl Globulin 3.4 (2.5-4.0) gm/dl Albumin/Globulin Ratio 0.9 (0.9-2) TSH 1.400 (0.300-4.500) uIu/ml COVID-19 Eval Order CovFluRsv at [facility] SARS-CoV-2 (PCR) (Negative) Influenza Type A (PCR) (Neg) Influenza Type B (PCR) (Neg) RSV (RT-PCR) (Neg) 07/01/20 Range/Units Unknown WBC (4.8-10.8) K/uL RBC (4.2-5.4) M/uL Hgb (12.0-16.0) g/dL Hct (37-47) % MCV (80-100) fL MCH (25-34) pg MCHC (32-36) g/dL RDW Std Deviation (36.4-46.3) fL RDW Coeff of Ne (11.5-14.5) % Plt Count (130-400) K/uL MPV (7.4-10.4) fL Immature Gran % (Auto) % Neut % (Auto) % Lymph % (Auto) % [place] % (Auto) % Eos % (Auto) % Baso % (Auto) % Neut # (Auto) (1.4-6.5) K/uL Lymph # (Auto) (1.2-3.4) K/uL [place] # (Auto) (0.11-0.59) K/uL Eos # (Auto) (0-0.5) K/uL Baso # (Auto) (0-0.2) K/uL Immature Gran # (Auto) (0.00-0.02) K/uL Sodium (136-145) mmol/L Potassium (3.5-5.1) mmol/L Chloride (98-107) mmol/L Carbon Dioxide (21-32) mmol/L Anion Gap (3-11) BUN (7-18) mg/dl Creatinine (0.6-1.2) mg/dl Est Cr Clr Drug Dosing Est GFR ( Amer) Est GFR (Non-Af Amer) BUN/Creatinine Ratio (10-20) Glucose (70-99) mg/dl Calcium (8.5-10.1) mg/dl Magnesium (1.8-2.4) mg/dl Total Bilirubin (0.2-1) mg/dl AST (15-37) U/L ALT (12-78) U/L Alkaline Phosphatase (45-117) U/L Troponin I (0-0.045) ng/ml Total Protein (6.4-8.2) gm/dl Albumin (3.4-5.0) gm/dl Globulin (2.5-4.0) gm/dl Albumin/Globulin Ratio (0.9-2) TSH (0.300-4.500) uIu/ml COVID-19 Eval Order SARS-CoV-2 (PCR) NEGATIVE (Negative) Influenza Type A (PCR) Negative (Neg) Influenza Type B (PCR) Negative (Neg) RSV (RT-PCR) Negative (Neg) Diagnostic Findings CT head/brain wo con CLINICAL HISTORY: 64 years-old Female with syncope. Acute head trauma with syncope TECHNIQUE: Multiple axial CT images of the head were obtained without contrast. A dose lowering technique was utilized adhering to the principles of ALARA. CT DOSE: 638.56 mGycm COMPARISON: CT 03/14/2020 FINDINGS: No acute intracranial hemorrhage, midline shift, intracranial mass, hydrocephalus, territorial ischemia or abnormal extra-axial collection. White matter hypodensities suggestive of chronic microvascular ischemic disease. Cerebral vascular calcifications. The calvarium is intact. The paranasal sinuses, mastoid air cells, and middle ear cavities are clear. IMPRESSION: No acute intracranial abnormality. ACT 112: Negative or not required by law. The above report was generated using voice recognition software. It may contain grammatical, syntax or spelling errors. Electronically signed by: Kiran Pugh M.D. 07/01/2020 2:57 PM Dictated: 07/01/20 1454Transcribed: 07/01/20 1454 ECG Additional Comments: EKG with NSR at 97, normal axis and intervals, no acute ischemic changes Code Status & VTE Plan VTE Prophylaxis Plan VTE Prophylaxis will be ordered: Yes PG Care Time/CCT Total # of Minutes Spent Total Time Spent with Patient: Total time spent is greater than 50% in coordination of care (as documented) at patient's floor/unit and/or counseling patient: Coding Level of Care Code 64918 Initial Inpt Care Lvl 3 Diagnoses Syncope R55 Syncope type: unspecified Facial tingling R20.2 Pericardial effusion I31.3 Stroke I63.9 CVA mechanism: unspecified Cognitive and behavioral changes R41.89; R46.89 Cirrhosis K74.60 Ascites presence: without ascites Hepatic cirrhosis type: unspecified hepatic cirrhosis Bipolar II disorder F31.81 Sarcoidosis of lung D86.0 (1) Cirrhosis Ascites presence: without ascites Hepatic cirrhosis type: unspecified hepatic cirrhosis Qualified Code(s): K74.60 - Unspecified cirrhosis of liver (2) Syncope Syncope type: unspecified Qualified Code(s): R55 - Syncope and collapse (3) Stroke CVA mechanism: unspecified Qualified Code(s): I63.9 - Cerebral infarction, unspecified
[2020-07-01] MEDS ORDERED: ONDANSETRON INJ 2 MG/ML 2 ML VIAL IV PRN (17:52)
[2020-07-01] MEDS ORDERED: ACETAMINOPHEN 325 MG TAB PO PRN (17:52)
[2020-07-01] MEDS ORDERED: DOCUSATE SODIUM 100 MG CAP PO PRN (17:52)
[2020-07-01] MEDS ORDERED: hydrOXYzine HCl 10 MG TAB PO PRN (17:52)
[2020-07-01 18:37] LABS: Phosphorus 3.2 mg/dl (2.5-4.9)
--- NOTE | 2020-07-01 18:47 | Electrocardiogram Report ---
Test Reason : Blood Pressure : / mmHG Vent. Rate : 097 BPM Atrial Rate : 097 BPM P-R Int : 136 ms QRS Dur : 074 ms QT Int : 366 ms P-R-T Axes : 009 017 069 degrees QTc Int : 464 ms Normal sinus rhythm Normal ECG When compared with ECG of 14-MAR-2020 10:01, Nonspecific T wave abnormality no longer evident in Anterior leads Confirmed by Patrick Zheng ([id number]) on 07/01/2020 6:46:30 PM Referred By: Confirmed By:Solomon Zheng
[2020-07-01] MEDS: HEPARIN SOD 5,000 UNIT/0.5 ML VIAL SQ SCH (21:07)
[2020-07-02] MEDS: HEPARIN SOD 5,000 UNIT/0.5 ML VIAL SQ SCH ×3 (06:06→22:20)
[2020-07-02 06:37] LABS: Appearance Urine Clear (Clear); Bacteria Urine Automated Negative (Negative); Bilirubin Urine Negative (Negative); Blood Urine Negative (Negative); Color Urine Yellow; Epithelial Cell Urine Auto >30 /lpf (0-5); Glucose Urine UA Negative (Negative); Ketones Urine Trace (Negative); Leukocyte Esterase Urine 2+ (Negative); Nitrite Urine Negative (Negative); Protein Urine Negative (Negative); RBC Urine Automated 0-4 /hpf (0-4); Urobilinogen Urine Negative (Negative); WBC Urine Automated >30 /hpf (0-5); pH Urine 5.5 (4.5-7.5)
[2020-07-02 06:54] LABS: Basophils # (auto) 0.04 K/uL (0-0.2); Basophils % (auto) 0.9 %; Eosinophils % (auto) 2.4 %; Hematocrit (blood only) 33.1 % (37-47); Hemoglobin 11.5 g/dL (12.0-16.0); Lymphocytes # (auto) 1.59 K/uL (1.2-3.4); Lymphocytes % (auto) 37.5 %; Mean Corpuscular Hemoglobin 29.6 pg (25-34); Mean Corpuscular Hgb Conc 34.7 g/dL (32-36); Mean Corpuscular Volume 85.1 fL (80-100); Mean Platelet Volume 8.9 fL (7.4-10.4); Monocytes # (auto) 0.29 K/uL (0.11-0.59); Monocytes % (auto) 6.8 %; Neutrophils # (auto) 2.22 K/uL (1.4-6.5); Neutrophils % (auto) 52.4 %; Platelet Count 203 K/uL (130-400); RDW Coefficient of Variation 13.7 % (11.5-14.5); RDW Standard Deviation 42.4 fL (36.4-46.3); Red Blood Count 3.89 M/uL (4.2-5.4); White Blood Count 4.24 K/uL (4.8-10.8)
[2020-07-02 07:21] LABS: BUN Creatinine Ratio 31.1 (10-20); Calcium 8.2 mg/dl (8.5-10.1); Creatinine Clr Calc Pharmacy 59.1 ml/min; Est GFR (African American) 78.3; Est GFR (Non-African American) 67.5; Potassium 3.8 mmol/L (3.5-5.1)
[2020-07-02] MEDS: ASPIRIN 81 MG ECTAB PO SCH (07:54)
[2020-07-02] MEDS: PROPRANOLOL HCL 10 MG TAB PO SCH (07:54)
[2020-07-02] MEDS ORDERED: ARIPiprazole 10 MG TAB PO SCH (09:00)
--- NOTE | 2020-07-02 09:37 | Hospitalist Progress Note ---
Date of Service July 02, 2020 Assessment & Plan (1) Syncope: Patient with syncopal event at home. Ddx to include orthostatic, vasovagal, cardiogenic. Orthostatic BPs pending. BUN improved to 28 and Cr normalized this AM at 0.89 following IVF. -Continue Telemetry -Check 2D echo - patient with history of moderate-sized pericardial effusion which has been evaluated by cardiology. She has declined treatment of the effusion with cardiology. (2) Facial tingling: Etiology unclear. She does have a hx of CVA. Continues to c/o some facial numbness on the left today. Noted to have a slightly decreased database marketing manager strength on the left today, but otherwise has no neuro defecits on exam. -MRI brain pending. (3) Pericardial effusion: As above, moderate-sized pericardial effusion noted on prior echocardiogram. She has been seen by Cardiology and recommended to consider open drainage with sampling - patient with history of Sarcoidosis as well as intraductal papillary mucinous neoplasm - concerning causes for effusion. Patient does not wish to pursue additional treatment for this at this time. -Check 2D echo (4) Stroke: Patient with recently diagnosed CVA found on MRI - Lipid panel WNL -A1C pending -Continue ASA (5) Cognitive and behavioral changes: Patient has seen both Neurology and Psychiatry regarding her behavioral changes and moods. Hx of Bipolar disorder and CVA. Has followed with provider at [facility] as an outpatient. She is currently on Abilify 10mg daily. -Continue Abilify -[facility] place Psychiatry consultation - MRI of brain pending. (6) Cirrhosis: Stable. Compensated -Continue to monitor (7) Bipolar II disorder: Chronic. Stable. She has seen Psychiatry in the past - uncertain what medications she has tried in the past. Has followed with [facility] as an outpatient. Presently on Abilify 10mg daily. -Continue for now - could Abilify be contributing to side effects or worsening depression? -[facility] place Psychiatry consultation for further input. (8) Sarcoidosis of lung: Chronic. Controlled Admission and Anticipated Discharge Date Admission Date: July 01, 2020 Subjective 64 year old female admitted after a syncopal episode. ? r/t hypotension and dehydration. Patient reports she is feeling better this morning. Hx of CVA. She continues to note some vague facial numbness, but denies any tingling. MRI of the brain is pending. 2D Echo is also pending for pericardial effusion. Patient denies any chest pain or SOB this morning. Review of Systems Constitutional: no fever and no chills Eyes: no worsening vision Ear, Nose, Mouth, Throat: no dizziness Respiratory: no dyspnea Cardiovascular: no chest pain Gastrointestinal: no abdominal pain, no nausea and no vomiting Genitourinary: no dysuria Neurologic: + numbness (left sided facial numbness) Physical Exam Physical Exam: Temp Pulse Resp BP Pulse Ox 36.3 C L 79 20 137/81 96 07/02/20 07:51 07/02/20 08:00 07/02/20 07:51 07/02/20 07:51 07/02/20 07:51 Patient is afebrile. Vital signs stable. Constitutional: + overweight; no acute distress ENMT: Ears: no hearing impairment Neck: normal visual inspection Respiratory: normal respiratory effort, lungs clear to auscultation Cardiovascular: RRR, no murmur, no edema Gastrointestinal (Abdomen): Inspection/Auscultation: normal bowel sounds Percussion/Palpation: abdomen soft; abdomen nontender Musculoskeletal: Head/Neck/Chest: normocephalic Extremities: + abnormal strength (Decreased database marketing manager strength on the left ) Neurologic: PERRL, EOMI, accommodation nl, no face palsy, no dysarthria Cranial Nerves: normal facial strength and tongue midline Psychiatric: Orientation: alert and oriented x 3 Affect: + flat affect Patient is slow to respond to questions. ? confused but able to answer appropriately. Results & Data Results & Data ([facility]) Vital Signs (Past 12 Hours) Vital Signs Temp Pulse Pulse Resp BP Pulse Ox 07/02/20 08:00 79 07/02/20 07:51 36.3 C L 77 20 137/81 96 07/02/20 02:49 36.6 C 81 18 113/70 96 07/01/20 23:00 85 07/01/20 22:01 36.6 C 85 18 110/67 95 PG Care Time/CCT Total # of Minutes Spent Total Time Spent with Patient: Total time spent is greater than 50% in coordination of care (as documented) at patient's floor/unit and/or counseling patient: Coding Level of Care Code 76966 Subseq Hosp Care Lvl 2 Diagnoses Syncope R55 Syncope type: unspecified Facial tingling R20.2 Pericardial effusion I31.3 Stroke I63.9 CVA mechanism: unspecified Cognitive and behavioral changes R41.89; R46.89 Cirrhosis K74.60 Ascites presence: without ascites Hepatic cirrhosis type: unspecified hepatic cirrhosis Bipolar II disorder F31.81 Sarcoidosis of lung D86.0 (1) Cirrhosis Ascites presence: without ascites Hepatic cirrhosis type: unspecified hepatic cirrhosis Qualified Code(s): K74.60 - Unspecified cirrhosis of liver (2) Syncope Syncope type: unspecified Qualified Code(s): R55 - Syncope and collapse (3) Stroke CVA mechanism: unspecified Qualified Code(s): I63.9 - Cerebral infarction, unspecified
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
--- NOTE | 2020-07-02 14:38 | XCELERA ---
[id number]
--- NOTE | 2020-07-02 17:39 | Magnetic Resonance Report ---
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 COMPARISON STUDY: CT scan dated 07/01/2020, MRI the brain dated 04/07/2020 TECHNIQUE: MRI of the brain was performed from the vertex to the skull base utilizing various T1 and T2 weighted sequences. Following the IV administration of 7.5 mL of Gadavist contrast, additional enh anced images were obtained. FINDINGS: Sagittal T1, axial diffusion, proton density and T2 weighted axial, coronal FLAIR, and pre and post a xial T1-weighted images were acquired. These were supplemented with post gadolinium coronal T1 weight ed images. No intra or extra-axial mass lesions are visualized. Axial diffusion-weighted images reveal no evidence of acute or subacute infarction. There is no evidence of ventricular dilatation. Proton density T2-weighted and FLAIR images reveal scattered foci of increased T2 signal within the w meri matter, likely on a small vessel basis. There are no abnormal flow voids. There is a stable 3 mm focus of enhancement within the left central fidelina. This finding is unlikely to be of acute clinical significance. IMPRESSION: 1. No acute intracranial findings 2. No evidence of acute or subacute infarction 3. Foci of increased T2 signal within the white matter likely small vessel ischemic basis 4. Stable 3 mm focus of enhancement within the left central fidelina. This may relate to an underlying be nign vascular lesion. This is unlikely to be of acute clinical significance. ACT 112: Negative or not required by law. Electronically signed by: Nelson Mustafa M.D. 07/02/2020 5:37 PM
[2020-07-03] MEDS: HEPARIN SOD 5,000 UNIT/0.5 ML VIAL SQ SCH ×2 (06:00→13:45)
[2020-07-03 06:21] LABS: Estimated Average Glucose 88 mg/dl; Hemoglobin A1C 4.7 % (4.5-5.6)
[2020-07-03] MEDS: ASPIRIN 81 MG ECTAB PO SCH (08:00)
[2020-07-03] MEDS: PROPRANOLOL HCL 10 MG TAB PO SCH (08:00)
[2020-07-03] MEDS ORDERED: ARIPiprazole 5 MG TAB PO SCH (09:00)
[2020-07-03] MEDS ORDERED: LOSARTAN POTASSIUM 50 MG TAB PO SCH (13:15)
--- NOTE | 2020-07-03 13:17 | Discharge Summary ---
Date of Service July 03, 2020 Admission HPI Per Admitting Provider Rita Lopez is a 64yo female presenting with possible syncope. She reports she was doing laundry earlier today when she suddenly passed out. She does not recall if she had any dizziness, chest pain or palpitations preceding or following the event. She denies bowel or bladder incontinence. She states she was cold and clammy when she woke up and was unable to communicate effectively and felt very weak diffusely - was unable to get up. She also reports some mild left facial numbness in V2 distribution. Otherwise, denies numbness, tingling, weakness, slurred speech or headache. No additional complaints at this time. Sister is at bedside and comments that the patient has not been herself for several months. She is more withdrawn, speaks slowly and sometimes incomprehensibly and moves very slowly. No facial tics or uncontrolled movements reported. Sister states that patient has been dehydrated "for months" and her PCP is working with her on this issue. Patient was admitted for a similar episode in March 2020. She had a normal CT of the head, no arrhythmias detected. She refused an echocardiogram and carotid ultrasound during that time. Echo was obtained outpatient on 04/21/20 and was found to be normal - EF of 65-70% with no WMA or valvular abnormalities. A moderate pericardial effusion was present with no tamponade physiology. MRI showed small subacute ischemic infarct in the left parietal lobe as well as mild chronic microvascular ischemic disease Carotid duplex was negative for hemodynamically significant stenosis She was seen by Neurology on 04/04/20 for evaluation of subacute cognitive and behavioral changes - disorganization. She had a 29/30 on MMSE. MRI of the brain was ordered and EEG was normal appearing. Concerns for pseudodementia due to depressive symptoms. She was seen by Psychiatry on 04/05/20 and was noted to be confused and disorganized during the exam. Abilify was increased to 5mg She was seen by Cardiology on 05/18/20 with normal bedside echo. No urgent need for pericardiocentesis give stable clinical status - if intervention is requeired she should have a surgical pericardial window performed with analysis of pericardial tissue and fluid which was declined at time of visit. Principal Diagnosis Syncope, ADRIANA, Dehydration Discharge Exam Constitutional WD/WN, vitals as above Eyes + anicteric sclerae and EOM intact bilaterally; no conjunctival abnormality Neck trachea midline, no thyromegaly Respiratory normal respiratory effort, lungs clear to auscultation Cardiovascular RRR, no murmur, no edema Chest (Breasts) Chest: normal inspection of chest Gastrointestinal (Abdomen) normal bowel sounds, soft, nontender, no hepatosplenomegaly Musculoskeletal Extremities: extremities normal to inspection; no cyanosis and no clubbing Skin no rashes, warm and dry Neurologic moves all extremities and awake; no focal motor deficits Motor/Sensory: + tremor (resting tremor in hands) Psychiatric Orientation: alert and oriented x 3 Speech: normal rate/rhythm/volume of speech Affect: + flat affect Lymphatic no lymphedema Discharge Data Allergies Allergy/AdvReac Type Severity Reaction Status Date / Time Thiazides Allergy Severe SOB, Verified 07/01/20 15:33 hives, rash omeprazole Allergy Intermediate joints hurt Verified 07/01/20 15:33 prednisone Allergy Intermediate FACIAL Verified 07/01/20 15:33 NUMBNESS AND DIZZINESS trazodone AdvReac Severe suicidial Verified 07/01/20 15:33 idealations gabapentin AdvReac Verified 07/01/20 15:33 topiramate [From Topamax] AdvReac Verified 07/01/20 15:33 Consultations 07/01/20 16:07 ED Decision to Admit Stat 07/02/20 09:58 Consult Psychiatry Routine Ordered Studies 07/01/20 14:02 CT head/brain wo con Stat 07/01/20 14:04 US point of care ultrasound Urgent 07/02/20 09:00 MR brain wo/w con Routine Head CT 07/01/20 14:02 CT head/brain wo con CLINICAL HISTORY: 64 years-old Female with syncope. Acute head trauma with syncope TECHNIQUE: Multiple axial CT images of the head were obtained without contrast. A dose lowering technique was utilized adhering to the principles of ALARA. CT DOSE: 638.56 mGycm COMPARISON: CT 03/14/2020 FINDINGS: No acute intracranial hemorrhage, midline shift, intracranial mass, hydrocephalus, territorial ischemia or abnormal extra-axial collection. White matter hypodensities suggestive of chronic microvascular ischemic disease. Cerebral vascular calcifications. The calvarium is intact. The paranasal sinuses, mastoid air cells, and middle ear cavities are clear. IMPRESSION: No acute intracranial abnormality. ACT 112: Negative or not required by law. The above report was generated using voice recognition software. It may contain grammatical, syntax or spelling errors. Electronically signed by: Kiran Pugh M.D. 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 COMPARISON STUDY: CT scan dated 07/01/2020, MRI the brain dated 04/07/2020 TECHNIQUE: MRI of the brain was performed from the vertex to the skull base utilizing various T1 and T2 weighted sequences. Following the IV administration of 7.5 mL of Gadavist contrast, additional enhanced images were obtained. FINDINGS: Sagittal T1, axial diffusion, proton density and T2 weighted axial, coronal FLAIR, and pre and post axial T1-weighted images were acquired. These were supplemented with post gadolinium coronal T1 weighted images. No intra or extra-axial mass lesions are visualized. Axial diffusion-weighted images reveal no evidence of acute or subacute infarction. There is no evidence of ventricular dilatation. Proton density T2-weighted and FLAIR images reveal scattered foci of increased T2 signal within the white matter, likely on a small vessel basis. There are no abnormal flow voids. There is a stable 3 mm focus of enhancement within the left central fidelina. This finding is unlikely to be of acute clinical significance. IMPRESSION: 1. No acute intracranial findings 2. No evidence of acute or subacute infarction 3. Foci of increased T2 signal within the white matter likely small vessel ischemic basis 4. Stable 3 mm focus of enhancement within the left central fidelina. This may relate to an underlying benign vascular lesion. This is unlikely to be of acute clinical significance. ACT 112: Negative or not required by law. Electronically signed by: Nelson Mustafa M.D. 07/02/2020 5:37 PM Hospital Course (1) Syncope: Patient with syncopal event at home. Ddx to include orthostatic, vasovagal, cardiogenic. She does appear to be dry on labs and admits to not drinking enough during the day She was given IVFs x 2 L NS upon admission and had improvement in hypotension. Her antihypertensives were held and orthostatics were negative MRI brain negative for new stroke Recent Carotid Dopplers neg for HD significant KURT No events on tele that were significant -Checked 2D echo - patient with history of moderate-sized pericardial effusion which has been evaluated by cardiology. Presently with normal BP, no JVD, heart tones are normal. Do not suspect tamponade and repeat ECHO here without any pericardial effusion SHe ambulated with PT/OT and did well, stable for dc to home -restarted losartan at half dose of 50mg daily -also lowered dose of Abilify to 5mg daily as per Psych (2) Facial tingling: Etiology unclear. Patient with no additional neurological deficits -Checked MRI brain-negative (3) Pericardial effusion: As above, moderate-sized pericardial effusion noted on prior echocardiogram. She has been seen by Cardiology and recommended to consider open drainage with sampling - patient with history of Sarcoidosis as well as intraductal papillary mucinous neoplasm - concerning causes for effusion. Patient does not wish to pursue additional treatment for this at this time. -Checked 2D echo and no further effusion noted (4) Stroke: Patient with recently diagnosed CVA found on MRI -Checked Lipid panel-LDL 105 -Checked [id number] at 4.7% -Continue ASA -Consider statin initiation-defer to PCP as outpt (5) Cognitive and behavioral changes: Patient has seen both Neurology and Psychiatry regarding her behavioral changes and moods. She is currently on Abilify 10mg daily but this was lowered to 5mg daily here due to syncope and tremor -appreciate Psychiatry consultation -f/u with outpt Psych recommended as discussed with patient (6) Cirrhosis: Stable. Compensated -Continue to monitor (7) Bipolar II disorder: Chronic. Stable. She has seen Psychiatry in the past - reducing Abilify to 5mg daily as above (8) Sarcoidosis of lung: Chronic. Controlled, PULM said no need for further follow up Dispo-stable for dc to home Total Time Total Time Spent Total Time Spent (In Minutes): 35 min Total Time Includes: Examination of the Patient, Discharge Planning and Medication Reconciliation Discharge Plan Discharge Items Patient Disposition: Home - Self-Care Reason For Visit: SYNCOPE, ADRIANA Discharge Diagnosis: Syncope, Acute kidney injury Condition on Discharge: Good Activity: Resume your previous activity Non-emergency contact: Primary Care Provider Call non-emergency contact if: you have any medication questions and your symptoms worsen Follow-up/Referrals: Vinicio Tamayo MD [Primary Care Provider] - (Follow up within 1-2 weeks.) Diet: Heart Healthy Addtl Attending Provider Instructions: You were admitted for passing out, low blood pressure, and acute kidney injury likely secondary to dehydration. You were given IV fluids and your kidney injury and symptoms resolved. You should restart your losartan at half the dose for now of 50mg once daily. Your Abilify dose was also cut in half in case this was contributing to your passing out. You should now take Abilify 5mg once daily and follow up with your outpatient Psychiatrist. Follow up with your PCP within 1-2 weeks. Pending Studies at Discharge: No Stand-Alone Forms: My [facility] Medications and DC Order Prescriptions: New aripiprazole [Abilify] 5 mg Tablet 5 mg PO QAM Qty: 30 RF: 0 polyethylene glycol 3350 [Miralax] 17 gram/dose powder 17 g PO TID PRN (Reason: constipation) Qty: 119 RF: 0 Continued aspirin 81 mg tablet,chewable 81 mg PO DAILY Qty: 30 RF: 2 propranolol 20 mg tablet 10 mg PO QAM RF: 0 hydroxyzine HCl 10 mg tablet 10 - 20 mg PO HS PRN (Reason: sleep) 10 Days Qty: 60 RF: 0 Changed losartan [Cozaar] 100 mg tablet 50 mg PO QAM Qty: 90 RF: 3 Discontinued aripiprazole [Abilify] 2 mg tablet 10 mg PO QAM RF: 0 amlodipine [Norvasc] 5 mg Tablet 2.5 mg PO QAM Qty: 30 RF: 0 Hold Instructions: low BP Discharge Orders: Discharge Order (Routine); Ordered 07/03/20 Ordered By: Julia Hurst Admission Data Admit Date/Time: 07/01/20 16:44 Attending Provider: Julia Hurst Admit Provider: Lakisha Tanner Primary Care Provider: Vinicio Tamayo V. Other Providers: Lakisha Tanner ; Chapis Linton Coding Level of Care Code D/C Day Management >30 mins Diagnoses Syncope R55 Syncope type: unspecified Facial tingling R20.2 Pericardial effusion I31.3 Stroke I63.9 CVA mechanism: unspecified Cognitive and behavioral changes R41.89; R46.89 Cirrhosis K74.60 Ascites presence: without ascites Hepatic cirrhosis type: unspecified hepatic cirrhosis Bipolar II disorder F31.81 Sarcoidosis of lung D86.0
== END 2020-07-03 14:57 | disposition home or self-care (01) | DRG 312 ==
LOC: ED 13:44 → SUATTDRO 16:44 → 2N 16:44